=== PATIENT | male | born 1955 | race Caucasian/White ===

== ENCOUNTER → 2017-10-03 08:50 | Outpatient (CLI) | payer OTHER, SELFPAY ==
--- NOTE | 2017-10-03 | DI.MRI.S_ITS ---
PROCEDURE: MR ABDOMEN WO/W CON INDICATIONS: HISTORY OF PANCREATITIS TECHNIQUE: Coronal HASTE, axial 2D FLASH in- and [id number]-[id number]; axial breath-hold T2 FSE with fat saturation from the hepatic dome to the iliac crests. Oblique coronal thin-slice and radial thick slab HASTE through the biliary system. Dynamic axial VIBE during administration of contrast. Post-contrast coronal VIBE or 2D FLASH with fat saturation from the hepatic dome to the iliac crests. Optional diffusion weighted imaging and ADC may be performed. COMPARISON: [facility], CT, ABDOMEN/PELVIS WITH CONTRAST, 06/02/2017, 10:45. [facility], US, ABDOMEN COMPLETE, 06/02/2017, 11:03. FINDINGS: Image quality: Excellent. Pancreas and biliary system: The bile ducts are not distended. With reference to the prior CT scan 06/02/17 there has been resolution of the pattern of pancreatitis and retroperitoneal edema previously present. The pancreatic tail, body, neck and head appear normal and no pancreatic ductal distention is present. There is, however, a hypoenhancing mass within the pancreatic uncinate process which measures up to 1.9 cm in maximal axial dimension and shows subtle but definite elevated diffusion signal in that area versus normal appearance of the pancreatic head immediately above. Solid organs: Liver is normal in size and enhancement except for a 3 cm peripherally nodular enhancing structure at the subcapsular right posterior hepatic segment mid liver level, previously also seen by ultrasound as a homogeneously hyperechoic structure characteristic by CT enhancement of hemangioma. Gallbladder appears normal, and the common duct shows no evidence of ductal calculus or sludge. Spleen is normal in size and enhancement. No adrenal nodules. Kidneys are normal in size and enhancement, without hydronephrosis. Nodes and vessels: No retroperitoneal or mesenteric adenopathy by size criteria. Aorta and inferior vena cava are normal in size. Bowel and peritoneum: Unenhanced bowel loops are normal in caliber throughout. No free fluid. Lung bases: No basal pleural effusions. Heart size is normal. Bones and soft tissues: No ventral hernias. Bone marrow is normal in overall signal. IMPRESSION: 1. Resolution of prior acute pancreatitis seen during CT scanning 06/02/17. Stable appearance of a benign appearing hemangioma at the subcapsular right posterior hepatic segment measuring up to 3 cm. 2. There is an abnormal masslike structure measuring up to 1.9 cm at the pancreatic uncinate process showing hypoenhancement, and elevated diffusion signal within, potentially a manifestation of early pancreatic adenocarcinoma. Currently there is no evidence of metastatic disease. 3. Given the implication of the pancreatic abnormality noted I would recommend a targeted single organ pancreatic ultrasound with specific attention exactly to the area of current MR concern. Additionally, a pancreatic protocol CT scan would be helpful in establishing the diagnosis of a potentially curable pancreatic carcinoma. That CT scan should be performed without oral contrast and in the 3 phases of contrast (without contrast, arterial phase, and mixed arterial venous phase of enhancement). Additionally, consideration of endoscopic pancreatic ultrasound may be warranted. Dictated by: Vitaly José M.D. on 10/03/2017 at 17:36 Approved by: Vitaly José M.D. on 10/03/2017 at 17:53
== END ==
PROVIDERS: PCP Family Medicine; Visit Provider Internal Medicine Gastroenterology
DX: K86.9 Disease of pancreas, unspecified (principal)
CPT/HCPCS: 74183

== ENCOUNTER → 2017-12-04 13:38 | Outpatient (REF) | payer OTHER, SELFPAY ==
[2017-12-04 13:51] LABS: Add Manual Diff / Slide Review NO; Basophils Percent Auto 0.4 % (0-2); Hematocrit 34.7 % (41-53); Hemoglobin 11.4 g/dL (13.5-17.5); Lymphocytes Percent Auto 14.1 % (25-40); Mean Corpuscular Hemoglobin 30.7 PG (26-34); Mean Corpuscular Volume 93.2 fL (80-100); Monocytes Percent Auto 6.1 % (3-14); Neutrophils Absolute Auto 11800 /uL (3000-5900); Neutrophils Percent Auto 77.4 % (50-75); Platelet Count 704 X10^3/uL (150-400); Red Blood Cell Count 3.72 X10^6/uL (4.5-5.9); Red Cell Distribution Width 13.9 % (11.6-14.8); White Blood Cell Count 15.2 X10^3/uL (4.5-11.0)
[2017-12-04 14:05] LABS: Alanine Aminotransferase 63 IU/L (21-72); Albumin 2.9 g/dL (3.5-5.0); Alkaline Phosphatase 402 U/L (38-126); Aspartate Aminotransferase 75 IU/L (17-59); BUN Creatinine Ratio 17.8 (6-22); Bilirubin Total 0.3 mg/dL (0.2-1.3); Blood Urea Nitrogen 16 mg/dL (9-20); Calcium 8.8 mg/dL (8.4-10.2); Carbon Dioxide 29 mmol/L (22-32); Chloride 100 mmol/L (98-107); Creatine Kinase 32 U/L (55-170); Estimated Glomerular Filt Rate > 60.0 mL/min (>60); Globulin 2.9 g/dL (1.7-4.1); Glucose 81 mg/dL (80-110); HEMOLYSIS < 15 (0-50); Potassium 4.7 mmol/L (3.4-5.1); Sodium 140 mmol/L (137-145); Total Protein 5.8 g/dL (6.3-8.2)
== END ==
LOC: LAB 13:38
PROVIDERS: PCP Family Medicine; Visit Provider Surgery
DX: C25.0 Malignant neoplasm of head of pancreas (principal); K65.1 Peritoneal abscess
CPT/HCPCS: 80053; 82550; 85025

== ENCOUNTER → 2017-12-11 18:35 | Outpatient (REF) | payer OTHER, SELFPAY ==
[2017-12-11 18:44] LABS: Add Manual Diff / Slide Review NO; Basophils Percent Auto 0.6 % (0-2); Hemoglobin 11.9 g/dL (13.5-17.5); Lymphocytes Percent Auto 19.7 % (25-40); Mean Corpuscular HGB Conc 33.1 % (30-36); Mean Corpuscular Hemoglobin 30.4 PG (26-34); Mean Corpuscular Volume 91.7 fL (80-100); Neutrophils Absolute Auto 6700 /uL (3000-5900); Neutrophils Percent Auto 67.7 % (50-75); Platelet Count 461 X10^3/uL (150-400); Red Blood Cell Count 3.93 X10^6/uL (4.5-5.9); White Blood Cell Count 9.9 X10^3/uL (4.5-11.0)
[2017-12-11 19:17] LABS: Blood Urea Nitrogen 23 mg/dL (9-20); Calcium 9.3 mg/dL (8.4-10.2); Carbon Dioxide 33 mmol/L (22-32); Chloride 100 mmol/L (98-107); Creatine Kinase 32 U/L (55-170); Estimated Glomerular Filt Rate > 60.0 mL/min (>60); Glucose 79 mg/dL (80-110); HEMOLYSIS < 15 (0-50); Potassium 4.4 mmol/L (3.4-5.1); Sodium 141 mmol/L (137-145)
== END ==
LOC: LAB 18:35
PROVIDERS: PCP Family Medicine; Visit Provider Surgery
DX: K65.1 Peritoneal abscess (principal); C25.0 Malignant neoplasm of head of pancreas
CPT/HCPCS: 36415; 80048; 82550; 85025

== ENCOUNTER → 2017-12-24 07:40 | Outpatient (CLI) | payer OTHER, SELFPAY ==
[2017-12-24 08:32] LABS: Add Manual Diff / Slide Review NO; Basophils Percent Auto 0.4 % (0-2); Eosinophils Percent Auto 4.4 % (2-4); Hematocrit 37.6 % (41-53); Hemoglobin 12.5 g/dL (13.5-17.5); Lymphocytes Percent Auto 15.9 % (25-40); Mean Corpuscular HGB Conc 33.2 % (30-36); Mean Corpuscular Hemoglobin 30.2 PG (26-34); Mean Corpuscular Volume 90.9 fL (80-100); Monocytes Percent Auto 6.3 % (3-14); Neutrophils Absolute Auto 7100 /uL (3000-5900); Platelet Count 341 X10^3/uL (150-400); Red Blood Cell Count 4.14 X10^6/uL (4.5-5.9); Red Cell Distribution Width 14.2 % (11.6-14.8); White Blood Cell Count 9.7 X10^3/uL (4.5-11.0)
== END ==
PROVIDERS: PCP Family Medicine; Visit Provider Internal Medicine Nephrology
DX: C25.3 Malignant neoplasm of pancreatic duct (principal)
CPT/HCPCS: 36415; 85025

== ENCOUNTER 2018-02-01 14:40 | Emergency (ER) | payer OTHER, SELFPAY ==
[2018-02-01] VITALS (7 sets, daily range): BP systolic 102–131; BP diastolic 73–81; PULSE 71–86; RESP 16–21; TEMP 37.3; O2SAT 98–99
--- NOTE | 2018-02-01 15:06 | ED.ABDPAIN ---
HPI - Abdominal Pain General Chief Complaint: GI Bleed Stated Complaint: CHEMO PATIENT,BLACK STOOL Time Seen by Provider: 02/01/18 14:50 Source: patient Mode of arrival: ambulatory Limitations: no limitations History of Present Illness HPI narrative: 62-year-old male with recent history of pancreatic cancer and subsequent Whipple procedure at [facility] in [place] presents with dark and tarry stools since yesterday with generalized abdominal discomfort and poor appetite. He is a bit weak but denies any dizziness or lightheadedness. He denies any vomiting. He denies any history of gastrointestinal bleeding. He has had endoscopy in the past but denies any significant findings. He does not take any blood thinners. He is receiving chemotherapy through a port (folfirinox 01/09 and 01/23) which is directed by oncology at [facility]. MD complaint: abdominal pain Onset (ago): day(s) Pain Consistency: constant Location: diffuse Severity: moderate Quality: cramping Migration to: no migration Relieving factors: nothing Associated symptoms: nausea and melena Related Data Home Medications Medication Instructions Recorded Confirmed quetiapine [Seroquel XR] 150 mg PO DAILY #0 04/27/16 02/01/18 psyllium husk (aspartame) 1 ea PO DIRECTED #0 06/22/16 02/01/18 [Metamucil Fiber Singles] lamotrigine 300 mg PO QDAY #0 10/02/16 02/01/18 bupropion HCl 300 mg PO QDAY #0 11/07/16 02/01/18 adapalene [Differin] 1 sunny TOPICAL HS #0 06/02/17 02/01/18 docusate sodium 2 cap PO QDAY #60 cap 06/29/17 02/01/18 polyethylene glycol 3350 [Miralax] 1 pac PO DAILY #10 packet 06/29/17 02/01/18 clonazepam 1 mg tablet 3 mg PO BEDTIME tab 01/01/18 02/01/18 fluoxetine 40 mg capsule 40 mg PO DAILY 01/01/18 02/01/18 hydromorphone 2 mg tablet 2 mg PO Q3H PRN tab 01/01/18 02/01/18 sulfacetamide sodium 10 % topical 1 applictn TOP BID 01/01/18 02/01/18 cleanser, gel aluminum chloride in alcohol 1 applic TOPICAL DIRECTED 02/01/18 02/01/18 [Xerac AC] ascorbic acid (vitamin C) [Vitamin 500 mg PO DAILY 02/01/18 02/01/18 C] aspirin 1 tab PO DAILY 02/01/18 02/01/18 azelaic acid [Finacea] 1 applic TOPICAL BID 02/01/18 02/01/18 benzoyl peroxide [Panoxyl] 1 applic TOPICAL QAM 02/01/18 02/01/18 cholecalciferol (vitamin D3) 6,000 unit PO DAILY 02/01/18 02/01/18 [Vitamin D3] coenzyme Q10 [CoQ-10] 300 mg PO DAILY 02/01/18 02/01/18 lidocaine-prilocaine 1 applic TOPICAL DIRECTED 02/01/18 02/01/18 [id number] [Zenpep] 3 cap PO AC 02/01/18 02/01/18 lorazepam 0.5 mg PO Q8H PRN 02/01/18 02/01/18 melatonin 10 mg PO BEDTIME 02/01/18 02/01/18 minoxidil 1 ml TOPICAL DIRECTED 02/01/18 02/01/18 iuisteuj-lxi-FK-lycopen-lutein 1 tab PO DAILY 02/01/18 02/01/18 [Men 50 Plus Multivitamin] ondansetron 8 mg PO QD-BID PRN 02/01/18 02/01/18 oxycodone-acetaminophen 1 - 3 tab PO DAILY PRN 02/01/18 02/01/18 prochlorperazine maleate 10 mg PO PRN PRN 02/01/18 02/01/18 sulfur 1 applic TOPICAL QPM 02/01/18 02/01/18 tamsulosin [Flomax] 0.8 mg PO BEDTIME 02/01/18 02/01/18 vit C-vit J-llnmau-wdy-om-3 1 cap PO DAILY 02/01/18 02/01/18 [Ocuvite] Previous Rx's Medication Instructions Recorded carbidopa-levodopa 1 tab PO QID #360 tab 08/23/17 montelukast 10 mg PO QDAY #30 tab 08/24/17 dapsone 5 % topical gel 1 applictn TOP BID #60 gram 09/18/17 finasteride 5 mg PO QDAY #90 tab 10/11/17 gabapentin 300 mg capsule 600 mg PO BID #120 cap 01/03/18 Allergies Allergy/AdvReac Type Severity Reaction Status Date / Time fentanyl [FENTANYL] AdvReac Severe tardive Verified 01/01/18 10:35 dykinesia like reaction with breathing cessation midazolam [From VERSED] AdvReac Severe may be Verified 01/01/18 10:35 cause of tardive dyskinesia like sx with breathing sx promethazine [From PHENERGAN] AdvReac Severe tardive Verified 01/01/18 10:35 dyskinesia like effeect Review of Systems Review of Systems All systems reviewed & are unremarkable except as noted in HPI and below Constitutional Denies chills, Denies fever(s), Denies lethargy and Reports weakness Eyes Denies change in vision, Denies eye discharge, Denies irritation and Denies loss of vision ENT Ears, Nose, Mouth, and Throat: Denies change in voice, Denies neck pain and Denies sore throat Cardiovascular Denies chest pain, Denies irregular heart rhythm, Denies lightheadedness, Denies palpitations, Denies dyspnea, Denies dyspnea on exertion and Denies orthopnea Respiratory Denies cough, Denies dyspnea, Denies dyspnea on exertion and Denies wheezing Gastrointestinal Gastrointestinal: Reports abdominal pain, Reports melena, Denies change in bowel habits, Denies diarrhea, Reports nausea and Denies vomiting Genitourinary Denies hematuria, Denies flank pain, Denies urinary incontinence and Denies urinary urgency Musculoskeletal Denies neck pain Integumentary/Breasts Denies pruritus, Denies erythema, Denies rash and Denies wounds Neurologic Denies confusion, Denies loss of vision and Reports weakness Psychiatric Denies anxiety, Denies confusion, Denies depression, Denies homicidal ideation and Denies suicidal ideation Endocrine Denies palpitations Hematologic/Lymphatic Denies easy bruising Allergic/Immunologic Denies wheezing [facility] Medical History BPH (benign prostatic hyperplasia) (Chronic) Depression (Chronic) Tremor (Chronic) Tourette's syndrome (Chronic) Fatigue (Chronic) Pancreatic cancer (Suspected) Epigastric pain (Chronic) Uncomplicated opioid dependence (Chronic) Idiopathic pancreatitis (Chronic) History of Lyme disease (Chronic 07/08/15) Back pain (Chronic) Social History marital status: unmarried,single household members: none lives independently: Yes Smoking Status: Never smoker Exam Narrative Exam Narrative: 62-year-old male uncomfortable, in mild distress Initial Vital Signs Initial Vital Signs: Vital Signs Temperature 99.2 F 02/01/18 14:49 Pulse Rate 86 02/01/18 14:49 Respiratory Rate 20 02/01/18 14:49 Blood Pressure 131/77 02/01/18 14:49 Pulse Oximetry 98 02/01/18 14:49 Const General: cooperative and well developed Nutritional Appearance: well nourished Orientation: alert, awake, oriented x3 and not confused HENMT Head: normocephalic and atraumatic Ears: external ears normal and TM's normal bilaterally Nose: external nose normal and No nasal discharge Face and sinus: sinuses nontender, face symmetric, no sinus tenderness and No dry mucous membranes Mouth: oral mucosae normal and moist mucous membranes Teeth and gingiva: dentition normal Throat: tonsils normal and uvula midline Neck Neck: normal visual inspection, trachea midline, No lymphadenopathy, No midline deformity and No JVD Lymphatic: No lymphedema Resp Effort & Inspection: normal respiratory effort, able to speak in complete sentences, no respiratory distress and no use of accessory muscles Auscultation: clear to auscultation bilaterally, no rales, no rhonchi and no wheezes GI Inspection: non-distended Palpation: soft, no hepatosplenomegaly, No guarding, No pulsatile mass and No tender Auscultation: normal bowel sounds Rectal Exam: heme positive stool Back/Spine/Pelvis Back: No CVA tenderness Cervical Spine: cervical ROM normal and No pain with cervical ROM Thoracic/Lumbar Spine: thoracic and lumbar spine normal to inspection Skin General: no rashes or lesions noted, No jaundice and No petechiae Neuro General: alert, oriented x3, gait normal and no focal motor deficits Speech: speech normal Extrem General: full ROM, no clubbing, cyanosis or edema, no pedal edema and no calf tenderness Course Orders Ordered: ED Orders 02/01/18 15:30 Complete Blood Count AUTO DIFF Stat Comprehensive Metabolic Panel Stat Partial Thromboplastin Time Stat Prothrombin Time INR Stat Type and Screen Stat 02/01/18 16:10 Urine Microscopic Stat Discontinued Medications Ondansetron HCl (Zofran) 4 mg IV NOW ONE Stop: 02/01/18 15:37 Last Admin: 02/01/18 16:13 Dose: 4 mg Pantoprazole Sodium (Protonix) 40 mg IV NOW ONE Stop: 02/01/18 15:37 Last Admin: 02/01/18 16:13 Dose: 40 mg Reevaluation(s) Reevaluation #1: patient resting comfortably, vitals remain stable. Consultations Consultation #1: call to [facility] to initiate transfer. Dr. Stephenson will accept. EMS to arrive at about 2100 Time: 18:48 Vital Signs - 8 hr 02/01/18 14:49 Temperature 99.2 F Pulse Rate 86 Respiratory Rate 20 Blood Pressure 131/77 Pulse Oximetry 98 MDM - Abdominal Pain Differential Diagnosis Differential diagnosis: Likely abdominal pain and other Medical Records Attestation: I reviewed the patient's medical records. Lab Data Attestation: I reviewed the patient's lab results. Result diagrams: 02/01/18 15:30 02/01/18 15:30 Lab Results 02/01/18 02/01/18 02/01/18 Range/Units 15:30 15:30 15:30 WBC 9.6 (4.5-11.0) X10^3/uL RBC 4.13 L (4.5-5.9) X10^6/uL Hgb 12.5 L (13.5-17.5) g/dL Hct 36.5 L (41-53) % MCV 88.4 (80-100) fL MCH 30.1 (26-34) PG MCHC 34.1 (30-36) % RDW 14.1 (11.6-14.8) % Plt Count 184 (150-400) X10^3/uL Neut % (Auto) 73.0 (50-75) % Lymph % (Auto) 15.3 L (25-40) % [place] % (Auto) 7.1 (3-14) % Eos % (Auto) 4.3 H (2-4) % Baso % (Auto) 0.3 (0-2) % Neut # (Auto) 7000 H (7280-3786) /uL PT 12.6 (10.1-12.7) SECONDS INR 1.2 (0.9-1.3) APTT 28 (26.4-36.2) SECONDS Sodium 145 (137-145) mmol/L Potassium 3.8 (3.4-5.1) mmol/L Chloride 105 (98-107) mmol/L Carbon Dioxide 31 (22-32) mmol/L BUN 20 (9-20) mg/dL Creatinine 0.90 (0.66-1.25) mg/dL Estimated GFR > 60.0 (>60) mL/min BUN/Creatinine Ratio 22.2 H (6-22) Glucose 95 (80-110) mg/dL Calcium 9.2 (8.4-10.2) mg/dL Total Bilirubin 0.2 (0.2-1.3) mg/dL AST 22 (17-59) IU/L ALT 30 (21-72) IU/L Alkaline Phosphatase 101 (38-126) U/L Total Protein 6.3 (6.3-8.2) g/dL Albumin 3.9 (3.5-5.0) g/dL Globulin 2.4 (1.7-4.1) g/dL Albumin/Globulin Ratio 1.6 (1.0-2.8) Urine RBC (0-5/HPF) Urine WBC (0-5/HPF) Ur Squamous Epith Cells Urine Bacteria (None) Urine Mucus (Negative) Ur Culture Indicated? Micro UA Comment Blood Type Antibody Screen 02/01/18 02/01/18 Range/Units 15:30 16:10 WBC (4.5-11.0) X10^3/uL RBC (4.5-5.9) X10^6/uL Hgb (13.5-17.5) g/dL Hct (41-53) % MCV (80-100) fL MCH (26-34) PG MCHC (30-36) % RDW (11.6-14.8) % Plt Count (150-400) X10^3/uL Neut % (Auto) (50-75) % Lymph % (Auto) (25-40) % [place] % (Auto) (3-14) % Eos % (Auto) (2-4) % Baso % (Auto) (0-2) % Neut # (Auto) (5678-2159) /uL PT (10.1-12.7) SECONDS INR (0.9-1.3) APTT (26.4-36.2) SECONDS Sodium (137-145) mmol/L Potassium (3.4-5.1) mmol/L Chloride (98-107) mmol/L Carbon Dioxide (22-32) mmol/L BUN (9-20) mg/dL Creatinine (0.66-1.25) mg/dL Estimated GFR (>60) mL/min BUN/Creatinine Ratio (6-22) Glucose (80-110) mg/dL Calcium (8.4-10.2) mg/dL Total Bilirubin (0.2-1.3) mg/dL AST (17-59) IU/L ALT (21-72) IU/L Alkaline Phosphatase (38-126) U/L Total Protein (6.3-8.2) g/dL Albumin (3.5-5.0) g/dL Globulin (1.7-4.1) g/dL Albumin/Globulin Ratio (1.0-2.8) Urine RBC None seen (0-5/HPF) Urine WBC 1-5/hpf (0-5/HPF) Ur Squamous Epith Cells 0-1 /hpf Urine Bacteria None seen (None) Urine Mucus 2+ H (Negative) Ur Culture Indicated? Cult not indicated Micro UA Comment Not Reportable Blood Type A Positive Antibody Screen Negative Point of care testing: Point of Care Testing Stool Occult Blood Positive Urine Dip Bedside Urine Glucose Negative Bedside Urine Bilirubin - Negative Bedside Urine Ketone +/- 5 Urine Specific [place] 1.030 Bedside Urine Occult Blood - Negative Bedside Urine pH 6.0 Bedside Urine Protein +/- 15 Bedside Urine Urobilinogen - Negative Bedside Urine Nitrite - Negative Bedside Urine Leukocytes - Negative Esterase MDM Narrative Medical decision making narrative: Patient with very complex recent medical history presents with signs consistent with upper GI bleed. He recently had a Whipple procedure at an outside facility and is currently on chemotherapy presenting with upper GI bleed. Patient will be transferred to [facility] for higher level of care and continuity of care Discharge Plan Departure Patient Disposition: General Acute Hospital Clinical Impression: Acute upper gastrointestinal bleeding Prescriptions: No Action clonazepam 1 mg tablet 3 mg PO BEDTIME RF: 0 fluoxetine 40 mg capsule 40 mg PO DAILY RF: 0 sulfacetamide sodium 10 % cleanser, gel 1 applictn TOP BID RF: 0 hydromorphone [Dilaudid] 2 mg tablet 2 mg PO Q3H PRN (Reason: Pain, Moderate) RF: 0 dapsone 5 % gel 1 applictn TOP BID Qty: 60 RF: 0 quetiapine [Seroquel XR] 150 MG tablet extended release 24 hr 150 mg PO DAILY Qty: 0 RF: 0 psyllium husk (aspartame) [Metamucil Fiber Singles] 3.4 gram Powder In Packet 1 ea PO DIRECTED Qty: 0 RF: 0 lamotrigine 300 MG tablet extended release 24hr 300 mg PO QDAY Qty: 0 RF: 0 bupropion HCl 300 MG tablet extended release 24 hr 300 mg PO QDAY Qty: 0 RF: 0 adapalene [Differin] 0.3 % gel 1 sunny Topical HS Qty: 0 RF: 0 docusate sodium 250 MG capsule 2 cap PO QDAY Qty: 60 RF: 2 polyethylene glycol 3350 [Miralax] 17 GM powder in packet 1 pac PO DAILY Qty: 10 RF: 2 carbidopa-levodopa 50 MG/200 MG tablet extended release 1 tab PO QID Qty: 360 RF: 3 montelukast 10 MG tablet 10 mg PO QDAY Qty: 30 RF: 5 finasteride 5 mg tablet 5 mg PO QDAY Qty: 90 RF: 3 gabapentin [Neurontin] 300 mg capsule 600 mg PO BID Qty: 120 RF: 5 benzoyl peroxide [Panoxyl] 10 % Cleanser 1 applic Topical QAM RF: 0 prochlorperazine maleate 10 mg Tablet 10 mg PO PRN PRN (Reason: Nausea) RF: 0 aspirin 81 mg Tablet,Delayed Release (Dr/Ec) 1 tab PO DAILY RF: 0 minoxidil 5 % Solution 1 ml TOPICAL DIRECTED RF: 0 ondansetron 8 mg Tablet,Disintegrating 8 mg PO QD-BID PRN (Reason: Nausea) RF: 0 lidocaine-prilocaine 2.5-2.5 % Cream 1 applic Topical DIRECTED RF: 0 lorazepam 0.5 mg Tablet 0.5 mg PO Q8H PRN (Reason: as directed) RF: 0 ascorbic acid (vitamin C) [Vitamin C] 500 mg Tablet 500 mg PO DAILY RF: 0 aluminum chloride in alcohol [Xerac AC] 6.25 % Solution 1 applic Topical DIRECTED RF: 0 coenzyme Q10 [CoQ-10] 100 mg Capsule 300 mg PO DAILY RF: 0 vit C-vit X-qperyf-aby-om-3 [Ocuvite] 731-81-0-150 fu-ajzc-xy-mg Capsule 1 cap PO DAILY RF: 0 cholecalciferol (vitamin D3) [Vitamin D3] 2,000 unit Capsule 6,000 unit PO DAILY RF: 0 oulwevlu-vqs-QD-lycopen-lutein [Men 50 Plus Multivitamin] 300-600-300 mcg Tablet 1 tab PO DAILY RF: 0 melatonin 10 mg Tablet 10 mg PO BEDTIME RF: 0 azelaic acid [Finacea] 15 % Foam 1 applic Topical BID RF: 0 naaxac-ckkrpgzg-dbbrkxo [Zenpep] 10,000-32,000 -42,000 unit Capsule,Delayed Release(Dr/Ec) 3 cap PO AC RF: 0 sulfur 10 % bar 1 applic Topical QPM RF: 0 oxycodone-acetaminophen 5-325 mg tablet 1 - 3 tab PO DAILY PRN (Reason: Pain, Moderate) RF: 0 tamsulosin [Flomax] 0.4 MG capsule 0.8 mg PO BEDTIME RF: 0
--- NOTE | 2018-02-01 15:28 | ED_ITS ---
HPI - Abdominal Pain General Chief Complaint: GI Bleed Stated Complaint: CHEMO PATIENT,BLACK STOOL Time Seen by Provider: 02/01/18 14:50 Source: patient Mode of arrival: ambulatory Limitations: no limitations History of Present Illness HPI narrative: 62-year-old male with recent history of pancreatic cancer and subsequent Whipple procedure at [facility] in [place] presents with dark and tarry stools since yesterday with generalized abdominal discomfort and poor appetite. He is a bit weak but denies any dizziness or lightheadedness. He denies any vomiting. He denies any history of gastrointestinal bleeding. He has had endoscopy in the past but denies any significant findings. He does not take any blood thinners. He is receiving chemotherapy through a port ( folfirinox 01/09 and 01/23) which is directed by oncology at [facility]. MD complaint: abdominal pain Onset (ago): day(s) Pain Consistency: constant Location: diffuse Severity: moderate Quality: cramping Migration to: no migration Relieving factors: nothing Associated symptoms: nausea and melena Related Data Home Medications Medication Instructions Recorded Confirmed quetiapine [Seroquel XR] 150 mg PO DAILY #0 04/27/16 02/01/18 psyllium husk (aspartame) 1 ea PO DIRECTED #0 06/22/16 02/01/18 [Metamucil Fiber Singles] lamotrigine 300 mg PO QDAY #0 10/02/16 02/01/18 bupropion HCl 300 mg PO QDAY #0 11/07/16 02/01/18 adapalene [Differin] 1 sunny TOPICAL HS #0 06/02/17 02/01/18 docusate sodium 2 cap PO QDAY #60 cap 06/29/17 02/01/18 polyethylene glycol 3350 [Miralax] 1 pac PO DAILY #10 packet 06/29/17 02/01/18 clonazepam 1 mg tablet 3 mg PO BEDTIME tab 01/01/18 02/01/18 fluoxetine 40 mg capsule 40 mg PO DAILY 01/01/18 02/01/18 hydromorphone 2 mg tablet 2 mg PO Q3H PRN tab 01/01/18 02/01/18 sulfacetamide sodium 10 % topical 1 applictn TOP BID 01/01/18 02/01/18 cleanser, gel aluminum chloride in alcohol 1 applic TOPICAL DIRECTED 02/01/18 02/01/18 [Xerac AC] ascorbic acid (vitamin C) [Vitamin 500 mg PO DAILY 02/01/18 02/01/18 C] aspirin 1 tab PO DAILY 02/01/18 02/01/18 azelaic acid [Finacea] 1 applic TOPICAL BID 02/01/18 02/01/18 benzoyl peroxide [Panoxyl] 1 applic TOPICAL QAM 02/01/18 02/01/18 cholecalciferol (vitamin D3) 6,000 unit PO DAILY 02/01/18 02/01/18 [Vitamin D3] coenzyme Q10 [CoQ-10] 300 mg PO DAILY 02/01/18 02/01/18 lidocaine-prilocaine 1 applic TOPICAL DIRECTED 02/01/18 02/01/18 aofoqk-xtwqwrno-gblnxpd [Zenpep] 3 cap PO AC 02/01/18 02/01/18 lorazepam 0.5 mg PO Q8H PRN 02/01/18 02/01/18 melatonin 10 mg PO BEDTIME 02/01/18 02/01/18 minoxidil 1 ml TOPICAL DIRECTED 02/01/18 02/01/18 oaeecobo-ymb-JY-lycopen-lutein 1 tab PO DAILY 02/01/18 02/01/18 [Men 50 Plus Multivitamin] ondansetron 8 mg PO QD-BID PRN 02/01/18 02/01/18 oxycodone-acetaminophen 1 - 3 tab PO DAILY PRN 02/01/18 02/01/18 prochlorperazine maleate 10 mg PO PRN PRN 02/01/18 02/01/18 sulfur 1 applic TOPICAL QPM 02/01/18 02/01/18 tamsulosin [Flomax] 0.8 mg PO BEDTIME 02/01/18 02/01/18 vit C-vit Y-vibwzk-her-om-3 1 cap PO DAILY 02/01/18 02/01/18 [Ocuvite] Previous Rx's Medication Instructions Recorded carbidopa-levodopa 1 tab PO QID #360 tab 08/23/17 montelukast 10 mg PO QDAY #30 tab 08/24/17 dapsone 5 % topical gel 1 applictn TOP BID #60 gram 09/18/17 finasteride 5 mg PO QDAY #90 tab 10/11/17 gabapentin 300 mg capsule 600 mg PO BID #120 cap 01/03/18 Allergies Allergy/AdvReac Type Severity Reaction Status Date / Time fentanyl [FENTANYL] AdvReac Severe tardive Verified 01/01/18 10:35 dykinesia like reaction with breathing cessation midazolam [From VERSED] AdvReac Severe may be Verified 01/01/18 10:35 cause of tardive dyskinesia like sx with breathing sx promethazine [From PHENERGAN] AdvReac Severe tardive Verified 01/01/18 10:35 dyskinesia like effeect Review of Systems Review of Systems All systems reviewed & are unremarkable except as noted in HPI and below Constitutional Denies chills, Denies fever(s), Denies lethargy and Reports weakness Eyes Denies change in vision, Denies eye discharge, Denies irritation and Denies loss of vision ENT Ears, Nose, Mouth, and Throat: Denies change in voice, Denies neck pain and Denies sore throat Cardiovascular Denies chest pain, Denies irregular heart rhythm, Denies lightheadedness, Denies palpitations, Denies dyspnea, Denies dyspnea on exertion and Denies orthopnea Respiratory Denies cough, Denies dyspnea, Denies dyspnea on exertion and Denies wheezing Gastrointestinal Gastrointestinal: Reports abdominal pain, Reports melena, Denies change in bowel habits, Denies diarrhea, Reports nausea and Denies vomiting Genitourinary Denies hematuria, Denies flank pain, Denies urinary incontinence and Denies urinary urgency Musculoskeletal Denies neck pain Integumentary/Breasts Denies pruritus, Denies erythema, Denies rash and Denies wounds Neurologic Denies confusion, Denies loss of vision and Reports weakness Psychiatric Denies anxiety, Denies confusion, Denies depression, Denies homicidal ideation and Denies suicidal ideation Endocrine Denies palpitations Hematologic/Lymphatic Denies easy bruising Allergic/Immunologic Denies wheezing [facility] Medical History BPH (benign prostatic hyperplasia) (Chronic) Depression (Chronic) Tremor (Chronic) Tourette's syndrome (Chronic) Fatigue (Chronic) Pancreatic cancer (Suspected) Epigastric pain (Chronic) Uncomplicated opioid dependence (Chronic) Idiopathic pancreatitis (Chronic) History of Lyme disease (Chronic 07/08/15) Back pain (Chronic) Social History marital status: unmarried,single household members: none lives independently: Yes Smoking Status: Never smoker Exam Narrative Exam Narrative: 62-year-old male uncomfortable, in mild distress Initial Vital Signs Initial Vital Signs: Vital Signs Temperature 99.2 F 02/01/18 14:49 Pulse Rate 86 02/01/18 14:49 Respiratory Rate 20 02/01/18 14:49 Blood Pressure 131/77 02/01/18 14:49 Pulse Oximetry 98 02/01/18 14:49 Const General: cooperative and well developed Nutritional Appearance: well nourished Orientation: alert, awake, oriented x3 and not confused HENMT Head: normocephalic and atraumatic Ears: external ears normal and TM's normal bilaterally Nose: external nose normal and No nasal discharge Face and sinus: sinuses nontender, face symmetric, no sinus tenderness and No dry mucous membranes Mouth: oral mucosae normal and moist mucous membranes Teeth and gingiva: dentition normal Throat: tonsils normal and uvula midline Neck Neck: normal visual inspection, trachea midline, No lymphadenopathy, No midline deformity and No JVD Lymphatic: No lymphedema Resp Effort & Inspection: normal respiratory effort, able to speak in complete sentences, no respiratory distress and no use of accessory muscles Auscultation: clear to auscultation bilaterally, no rales, no rhonchi and no wheezes GI Inspection: non-distended Palpation: soft, no hepatosplenomegaly, No guarding, No pulsatile mass and No tender Auscultation: normal bowel sounds Rectal Exam: heme positive stool Back/Spine/Pelvis Back: No CVA tenderness Cervical Spine: cervical ROM normal and No pain with cervical ROM Thoracic/Lumbar Spine: thoracic and lumbar spine normal to inspection Skin General: no rashes or lesions noted, No jaundice and No petechiae Neuro General: alert, oriented x3, gait normal and no focal motor deficits Speech: speech normal Extrem General: full ROM, no clubbing, cyanosis or edema, no pedal edema and no calf tenderness Course Orders Ordered: ED Orders 02/01/18 15:30 Complete Blood Count AUTO DIFF Stat Comprehensive Metabolic Panel Stat Partial Thromboplastin Time Stat Prothrombin Time INR Stat Type and Screen Stat 02/01/18 16:10 Urine Microscopic Stat Discontinued Medications Ondansetron HCl (Zofran) 4 mg IV NOW ONE Stop: 02/01/18 15:37 Last Admin: 02/01/18 16:13 Dose: 4 mg Pantoprazole Sodium (Protonix) 40 mg IV NOW ONE Stop: 02/01/18 15:37 Last Admin: 02/01/18 16:13 Dose: 40 mg Reevaluation(s) Reevaluation #1: patient resting comfortably, vitals remain stable. Consultations Consultation #1: call to [facility] to initiate transfer. Dr. Stephenson will accept. EMS to arrive at about 2100 Time: 18:48 Vital Signs - 8 hr 02/01/18 14:49 Temperature 99.2 F Pulse Rate 86 Respiratory Rate 20 Blood Pressure 131/77 Pulse Oximetry 98 MDM - Abdominal Pain Differential Diagnosis Differential diagnosis: Likely abdominal pain and other Medical Records Attestation: I reviewed the patient's medical records. Lab Data Attestation: I reviewed the patient's lab results. Result diagrams: 02/01/18 15:30 02/01/18 15:30 Lab Results 02/01/18 02/01/18 02/01/18 Range/Units 15:30 15:30 15:30 WBC 9.6 (4.5-11.0) X10^3/uL RBC 4.13 L (4.5-5.9) X10^6/uL Hgb 12.5 L (13.5-17.5) g/dL Hct 36.5 L (41-53) % MCV 88.4 (80-100) fL MCH 30.1 (26-34) PG MCHC 34.1 (30-36) % RDW 14.1 (11.6-14.8) % Plt Count 184 (150-400) X10^3/uL Neut % (Auto) 73.0 (50-75) % Lymph % (Auto) 15.3 L (25-40) % [place] % (Auto) 7.1 (3-14) % Eos % (Auto) 4.3 H (2-4) % Baso % (Auto) 0.3 (0-2) % Neut # (Auto) 7000 H (4036-7475) /uL PT 12.6 (10.1-12.7) SECONDS INR 1.2 (0.9-1.3) APTT 28 (26.4-36.2) SECONDS Sodium 145 (137-145) mmol/L Potassium 3.8 (3.4-5.1) mmol/L Chloride 105 (98-107) mmol/L Carbon Dioxide 31 (22-32) mmol/L BUN 20 (9-20) mg/dL Creatinine 0.90 (0.66-1.25) mg/dL Estimated GFR > 60.0 (>60) mL/min BUN/Creatinine Ratio 22.2 H (6-22) Glucose 95 (80-110) mg/dL Calcium 9.2 (8.4-10.2) mg/dL Total Bilirubin 0.2 (0.2-1.3) mg/dL AST 22 (17-59) IU/L ALT 30 (21-72) IU/L Alkaline Phosphatase 101 (38-126) U/L Total Protein 6.3 (6.3-8.2) g/dL Albumin 3.9 (3.5-5.0) g/dL Globulin 2.4 (1.7-4.1) g/dL Albumin/Globulin Ratio 1.6 (1.0-2.8) Urine RBC (0-5/HPF) Urine WBC (0-5/HPF) Ur Squamous Epith Cells Urine Bacteria (None) Urine Mucus (Negative) Ur Culture Indicated? Micro UA Comment Blood Type Antibody Screen 02/01/18 02/01/18 Range/Units 15:30 16:10 WBC (4.5-11.0) X10^3/uL RBC (4.5-5.9) X10^6/uL Hgb (13.5-17.5) g/dL Hct (41-53) % MCV (80-100) fL MCH (26-34) PG MCHC (30-36) % RDW (11.6-14.8) % Plt Count (150-400) X10^3/uL Neut % (Auto) (50-75) % Lymph % (Auto) (25-40) % [place] % (Auto) (3-14) % Eos % (Auto) (2-4) % Baso % (Auto) (0-2) % Neut # (Auto) (3191-2453) /uL PT (10.1-12.7) SECONDS INR (0.9-1.3) APTT (26.4-36.2) SECONDS Sodium (137-145) mmol/L Potassium (3.4-5.1) mmol/L Chloride (98-107) mmol/L Carbon Dioxide (22-32) mmol/L BUN (9-20) mg/dL Creatinine (0.66-1.25) mg/dL Estimated GFR (>60) mL/min BUN/Creatinine Ratio (6-22) Glucose (80-110) mg/dL Calcium (8.4-10.2) mg/dL Total Bilirubin (0.2-1.3) mg/dL AST (17-59) IU/L ALT (21-72) IU/L Alkaline Phosphatase (38-126) U/L Total Protein (6.3-8.2) g/dL Albumin (3.5-5.0) g/dL Globulin (1.7-4.1) g/dL Albumin/Globulin Ratio (1.0-2.8) Urine RBC None seen (0-5/HPF) Urine WBC 1-5/hpf (0-5/HPF) Ur Squamous Epith Cells 0-1 /hpf Urine Bacteria None seen (None) Urine Mucus 2+ H (Negative) Ur Culture Indicated? Cult not indicated Micro UA Comment Not Reportable Blood Type A Positive Antibody Screen Negative Point of care testing: Point of Care Testing Stool Occult Blood Positive Urine Dip Bedside Urine Glucose Negative Bedside Urine Bilirubin - Negative Bedside Urine Ketone +/- 5 Urine Specific [place] 1.030 Bedside Urine Occult Blood - Negative Bedside Urine pH 6.0 Bedside Urine Protein +/- 15 Bedside Urine Urobilinogen - Negative Bedside Urine Nitrite - Negative Bedside Urine Leukocytes - Negative Esterase MDM Narrative Medical decision making narrative: Patient with very complex recent medical history presents with signs consistent with upper GI bleed. He recently had a Whipple procedure at an outside facility and is currently on chemotherapy presenting with upper GI bleed. Patient [facility] be transferred to [facility] for higher level of care and continuity of care Discharge Plan Departure Patient Disposition: [facility] Clinical Impression: Acute upper gastrointestinal bleeding Prescriptions: No Action clonazepam 1 mg tablet 3 mg PO BEDTIME RF: 0 fluoxetine 40 mg capsule 40 mg PO DAILY RF: 0 sulfacetamide sodium 10 % cleanser, gel 1 applictn TOP BID RF: 0 hydromorphone [Dilaudid] 2 mg tablet 2 mg PO Q3H PRN (Reason: Pain, Moderate) RF: 0 dapsone 5 % gel 1 applictn TOP BID Qty: 60 RF: 0 quetiapine [Seroquel XR] 150 MG tablet extended release 24 hr 150 mg PO DAILY Qty: 0 RF: 0 psyllium husk (aspartame) [Metamucil Fiber Singles] 3.4 gram Powder In Packet 1 ea PO DIRECTED Qty: 0 RF: 0 lamotrigine 300 MG tablet extended release 24hr 300 mg PO QDAY Qty: 0 RF: 0 bupropion HCl 300 MG tablet extended release 24 hr 300 mg PO QDAY Qty: 0 RF: 0 adapalene [Differin] 0.3 % gel 1 sunny Topical HS Qty: 0 RF: 0 docusate sodium 250 MG capsule 2 cap PO QDAY Qty: 60 RF: 2 polyethylene glycol 3350 [Miralax] 17 GM powder in packet 1 pac PO DAILY Qty: 10 RF: 2 carbidopa-levodopa 50 MG/200 MG tablet extended release 1 tab PO QID Qty: 360 RF: 3 montelukast 10 MG tablet 10 mg PO QDAY Qty: 30 RF: 5 finasteride 5 mg tablet 5 mg PO QDAY Qty: 90 RF: 3 gabapentin [Neurontin] 300 mg capsule 600 mg PO BID Qty: 120 RF: 5 benzoyl peroxide [Panoxyl] 10 % Cleanser 1 applic Topical QAM RF: 0 prochlorperazine maleate 10 mg Tablet 10 mg PO PRN PRN (Reason: Nausea) RF: 0 aspirin 81 mg Tablet,Delayed Release (Dr/Ec) 1 tab PO DAILY RF: 0 minoxidil 5 % Solution 1 ml TOPICAL DIRECTED RF: 0 ondansetron 8 mg Tablet,Disintegrating 8 mg PO QD-BID PRN (Reason: Nausea) RF: 0 lidocaine-prilocaine 2.5-2.5 % Cream 1 applic Topical DIRECTED RF: 0 lorazepam 0.5 mg Tablet 0.5 mg PO Q8H PRN (Reason: as directed) RF: 0 ascorbic acid (vitamin C) [Vitamin C] 500 mg Tablet 500 mg PO DAILY RF: 0 aluminum chloride in alcohol [Xerac AC] 6.25 % Solution 1 applic Topical DIRECTED RF: 0 coenzyme Q10 [CoQ-10] 100 mg Capsule 300 mg PO DAILY RF: 0 vit C-vit P-tgzduj-nhf-om-3 [Ocuvite] 108-79-9-150 jv-fxwy-iw-mg Capsule 1 cap PO DAILY RF: 0 cholecalciferol (vitamin D3) [Vitamin D3] 2,000 unit Capsule 6,000 unit PO DAILY RF: 0 adhuhkeq-zws-VQ-lycopen-lutein [Men 50 Plus Multivitamin] 300-600-300 mcg Tablet 1 tab PO DAILY RF: 0 melatonin 10 mg Tablet 10 mg PO BEDTIME RF: 0 azelaic acid [Finacea] 15 % Foam 1 applic Topical BID RF: 0 evducy-sdqbqikd-wuwaijk [Zenpep] 10,000-32,000 -42,000 unit Capsule,Delayed Release(Dr/Ec) 3 cap PO AC RF: 0 sulfur 10 % bar 1 applic Topical QPM RF: 0 oxycodone-acetaminophen 5-325 mg tablet 1 - 3 tab PO DAILY PRN (Reason: Pain, Moderate) RF: 0 tamsulosin [Flomax] 0.4 MG capsule 0.8 mg PO BEDTIME RF: 0
[2018-02-01 15:45] LABS: INR 1.2 (0.9-1.3); Prothrombin Time 12.6 SECONDS (10.1-12.7)
[2018-02-01 15:46] LABS: Add Manual Diff / Slide Review NO; Basophils Percent Auto 0.3 % (0-2); Eosinophils Percent Auto 4.3 % (2-4); Hematocrit 36.5 % (41-53); Hemoglobin 12.5 g/dL (13.5-17.5); Lymphocytes Percent Auto 15.3 % (25-40); Mean Corpuscular HGB Conc 34.1 % (30-36); Mean Corpuscular Hemoglobin 30.1 PG (26-34); Mean Corpuscular Volume 88.4 fL (80-100); Monocytes Percent Auto 7.1 % (3-14); Neutrophils Absolute Auto 7000 /uL (3000-5900); Platelet Count 184 X10^3/uL (150-400); Red Blood Cell Count 4.13 X10^6/uL (4.5-5.9); Red Cell Distribution Width 14.1 % (11.6-14.8); White Blood Cell Count 9.6 X10^3/uL (4.5-11.0)
[2018-02-01 15:48] LABS: PTT Partial Thromboplastin Tim 28 SECONDS (26.4-36.2)
[2018-02-01 15:50] LABS: Alanine Aminotransferase 30 IU/L (21-72); Albumin 3.9 g/dL (3.5-5.0); Albumin Globulin Ratio 1.6 (1.0-2.8); Alkaline Phosphatase 101 U/L (38-126); Aspartate Aminotransferase 22 IU/L (17-59); BUN Creatinine Ratio 22.2 (6-22); Bilirubin Total 0.2 mg/dL (0.2-1.3); Blood Urea Nitrogen 20 mg/dL (9-20); Calcium 9.2 mg/dL (8.4-10.2); Carbon Dioxide 31 mmol/L (22-32); Chloride 105 mmol/L (98-107); Estimated Glomerular Filt Rate > 60.0 mL/min (>60); Globulin 2.4 g/dL (1.7-4.1); Glucose 95 mg/dL (80-110); HEMOLYSIS < 15 (0-50); Potassium 3.8 mmol/L (3.4-5.1); Sodium 145 mmol/L (137-145); Total Protein 6.3 g/dL (6.3-8.2)
[2018-02-01] MEDS: ONDANSETRON 4 MG/2 ML INJ IV (16:13)
[2018-02-01] MEDS: PANTOPRAZOLE 40 MG VIAL IV (16:13)
[2018-02-01 16:16] LABS: Bacteria Urine None Seen; RBC Urine None Seen (0-5/HPF)
[2018-02-01 16:24] LABS: Culture Indicated Urine Cult Not Indicated; Mucus Urine 2+ (Negative); Squamous Epithelial Cell Urine 0-1 /HPF; WBC Urine 1-5/HPF (0-5/HPF)
== END 2018-02-01 20:29 | disposition short-term general hospital (02) ==
PROVIDERS: Emergency Provider Emergency Medicine; PCP Family Medicine
DX: K92.2 Gastrointestinal hemorrhage, unspecified (principal); Z98.890 Other specified postprocedural states
CPT/HCPCS: 36591; 80053; 81003; 81015; 82272; 85025; 85610; 85730; 86850; 86900; 86901; 96374; 96375; 99284; C9113; J2405

== ENCOUNTER → 2018-02-04 13:50 | Outpatient (CLI) | payer OTHER, SELFPAY ==
[2018-02-04 14:12] LABS: Add Manual Diff / Slide Review NO; Basophils Percent Auto 0.5 % (0-2); Eosinophils Percent Auto 4.2 % (2-4); Hematocrit 39.5 % (41-53); Hemoglobin 13.4 g/dL (13.5-17.5); Mean Corpuscular HGB Conc 33.9 % (30-36); Mean Corpuscular Hemoglobin 30.4 PG (26-34); Mean Corpuscular Volume 89.8 fL (80-100); Monocytes Percent Auto 9.2 % (3-14); Neutrophils Absolute Auto 4800 /uL (3000-5900); Neutrophils Percent Auto 66.1 % (50-75); Platelet Count 188 X10^3/uL (150-400); Red Cell Distribution Width 14.1 % (11.6-14.8); White Blood Cell Count 7.2 X10^3/uL (4.5-11.0)
[2018-02-04 14:41] LABS: Alanine Aminotransferase 19 IU/L (21-72); Albumin 4.1 g/dL (3.5-5.0); Albumin Globulin Ratio 1.7 (1.0-2.8); Alkaline Phosphatase 110 U/L (38-126); Aspartate Aminotransferase 25 IU/L (17-59); Bilirubin Total 0.3 mg/dL (0.2-1.3); Blood Urea Nitrogen 15 mg/dL (9-20); Calcium 9.6 mg/dL (8.4-10.2); Carbon Dioxide 33 mmol/L (22-32); Chloride 103 mmol/L (98-107); Estimated Glomerular Filt Rate > 60.0 mL/min (>60); Globulin 2.4 g/dL (1.7-4.1); Glucose 99 mg/dL (80-110); HEMOLYSIS < 15 (0-50); Potassium 3.7 mmol/L (3.4-5.1); Sodium 145 mmol/L (137-145); Total Protein 6.5 g/dL (6.3-8.2)
== END ==
PROVIDERS: PCP Family Medicine; Visit Provider Internal Medicine
DX: C25.3 Malignant neoplasm of pancreatic duct (principal)
CPT/HCPCS: 36415; 80053; 85025

== ENCOUNTER 2018-02-10 11:24 | Emergency (ER) | payer OTHER, SELFPAY ==
[2018-02-10] VITALS (7 sets, daily range): BP systolic 111–129; BP diastolic 56–96; PULSE 82–101; RESP 14–27; TEMP 37.1; O2SAT 96–100
--- NOTE | 2018-02-10 12:10 | ED.WEAKNESS ---
HPI - Weakness General Chief complaint: Weakness Stated complaint: WEAK, COLD, VOMITING Time Seen by Provider: 02/10/18 11:39 Source: patient and old records reviewed Mode of arrival: ambulatory Limitations: no limitations History of Present Illness HPI Narrative: Patient is 62-year-old male with history of pancreatic cancer and with full surgery at [facility]. He recently was transferred there on 02/01/2018 and for GI bleed. He now is presenting with dizziness weakness is and nausea. He has also got some complaints of shortness of breath no chest pain. He has not been vomiting. He has not had fever though he feels warm he has been complaining of chills. He feels dizzy and lightheaded. He overall looks and feels extremely poorly. He is receiving chemotherapy through a port (folfirinox 01/09 and 01/23 and 01/30) which is directed by oncology at [place]. MD Complaint: generalized weakness Related Data Home Medications Medication Instructions Recorded Confirmed quetiapine [Seroquel XR] 150 mg PO DAILY #0 04/27/16 02/10/18 psyllium husk (aspartame) 1 ea PO DIRECTED #0 06/22/16 02/10/18 [Metamucil Fiber Singles] lamotrigine 300 mg PO QDAY #0 10/02/16 02/10/18 bupropion HCl 300 mg PO QDAY #0 11/07/16 02/10/18 adapalene [Differin] 1 sunny TOPICAL HS #0 06/02/17 02/10/18 docusate sodium 2 cap PO QDAY #60 cap 06/29/17 02/10/18 polyethylene glycol 3350 [Miralax] 1 pac PO DAILY #10 packet 06/29/17 02/10/18 clonazepam 1 mg tablet 3 mg PO BEDTIME tab 01/01/18 02/10/18 fluoxetine 40 mg capsule 40 mg PO DAILY 01/01/18 02/10/18 hydromorphone 2 mg tablet 2 mg PO Q3H PRN tab 01/01/18 02/10/18 sulfacetamide sodium 10 % topical 1 applictn TOP BID 01/01/18 02/10/18 cleanser, gel aluminum chloride in alcohol 1 applic TOPICAL DIRECTED 02/01/18 02/10/18 [Xerac AC] ascorbic acid (vitamin C) [Vitamin 500 mg PO DAILY 02/01/18 02/10/18 C] aspirin 1 tab PO DAILY 02/01/18 02/10/18 azelaic acid [Finacea] 1 applic TOPICAL BID 02/01/18 02/10/18 benzoyl peroxide [Panoxyl] 1 applic TOPICAL QAM 02/01/18 02/10/18 cholecalciferol (vitamin D3) 6,000 unit PO DAILY 02/01/18 02/10/18 [Vitamin D3] coenzyme Q10 [CoQ-10] 300 mg PO DAILY 02/01/18 02/10/18 lidocaine-prilocaine 1 applic TOPICAL DIRECTED 02/01/18 02/10/18 tnejgl-eozjjoyl-vkpdoen [Zenpep] 3 cap PO AC 02/01/18 02/10/18 lorazepam 0.5 mg PO Q8H PRN 02/01/18 02/10/18 melatonin 10 mg PO BEDTIME 02/01/18 02/10/18 minoxidil 1 ml TOPICAL DIRECTED 02/01/18 02/10/18 xzjcqtcu-mrc-TX-lycopen-lutein 1 tab PO DAILY 02/01/18 02/10/18 [Men 50 Plus Multivitamin] ondansetron 8 mg PO QD-BID PRN 02/01/18 02/10/18 oxycodone-acetaminophen 1 - 3 tab PO DAILY PRN 02/01/18 02/10/18 prochlorperazine maleate 10 mg PO PRN PRN 02/01/18 02/10/18 tamsulosin [Flomax] 0.8 mg PO BEDTIME 02/01/18 02/10/18 vit C-vit D-lueodo-skp-om-3 1 cap PO DAILY 02/01/18 02/10/18 [Ocuvite] Previous Rx's Medication Instructions Recorded carbidopa-levodopa 1 tab PO QID #360 tab 08/23/17 montelukast 10 mg PO QDAY #30 tab 08/24/17 dapsone 5 % topical gel 1 applictn TOP BID #60 gram 09/18/17 finasteride 5 mg PO QDAY #90 tab 10/11/17 gabapentin 300 mg capsule 600 mg PO BID #120 cap 01/03/18 Allergies Allergy/AdvReac Type Severity Reaction Status Date / Time fentanyl [FENTANYL] AdvReac Severe tardive Verified 02/10/18 11:41 dykinesia like reaction with breathing cessation midazolam [From VERSED] AdvReac Severe may be Verified 02/10/18 11:41 cause of tardive dyskinesia like sx with breathing sx promethazine [From PHENERGAN] AdvReac Severe tardive Verified 02/10/18 11:41 dyskinesia like effeect Review of Systems Review of Systems All systems reviewed & are unremarkable except as noted in HPI and below Constitutional Denies chills, Denies fever(s), Denies lethargy and Denies weakness Cardiovascular Denies chest pain, Denies irregular heart rhythm, Denies lightheadedness, Denies palpitations, Reports dyspnea and Denies orthopnea Respiratory Denies cough and Reports dyspnea Gastrointestinal Gastrointestinal: Denies abdominal pain, Denies change in bowel habits, Denies diarrhea, Reports nausea and Denies vomiting Integumentary/Breasts Denies pruritus, Denies erythema, Denies rash and Denies wounds Neurologic Denies weakness Endocrine Denies palpitations [facility] Social History marital status: unmarried,single household members: none lives independently: Yes Smoking Status: Never smoker Exam Initial Vital Signs Initial Vital Signs: Vital Signs Temperature 98.7 F 02/10/18 11:33 Pulse Rate 101 H 02/10/18 11:33 Respiratory Rate 18 02/10/18 11:33 Blood Pressure 116/96 H 02/10/18 11:33 Pulse Oximetry 100 02/10/18 11:33 Const General: cooperative, No comfortable, acute distress and ill appearing (Chronically ill) Orientation: alert, awake and oriented x3 [facility] [place] Head: normal to inspection and normocephalic Eyes General: appearance normal, both eyes and all related structures Neck Neck: normal visual inspection, full ROM and no meningeal signs Chest Chest: normal inspection of the chest Resp Effort & Inspection: normal respiratory effort, no grunting, no retractions and tachypneic Auscultation: clear to auscultation bilaterally, no rales, no rhonchi and no wheezes Cardio Rate: tachycardic Skin General: no rashes or lesions noted, No jaundice and No petechiae Neuro General: alert, awake, oriented x3 and CN's II-XI intact bilaterally Motor: muscle tone normal throughout Sensory Exam: no sensory deficits noted Course Orders Ordered: ED Orders 02/10/18 11:40 Complete Blood Count AUTO DIFF Stat Comprehensive Metabolic Panel Stat Lactate (Lactic Acid) Stat Lipase Stat Troponin & CK Cardiac Panel Stat 02/10/18 12:23 CT angio chest PE protocol Stat 02/10/18 13:25 Blood Culture Stat 02/10/18 14:50 Complete Blood Count AUTO DIFF Stat Lactate (Lactic Acid) Stat Sodium Chloride (Normal Saline 0.9%) 1,000 mls @ 1,000 mls/hr IV CONT MICHELA Last Infusion: 02/10/18 16:30 Dose: 0 mls/hr Admin: 02/10/18 14:08 Dose: 1,000 mls/hr Infusion: 02/10/18 13:16 Dose: 1,000 mls/hr Admin: 02/10/18 12:16 Dose: 1,000 mls/hr Sodium Chloride (Normal Saline 0.9%) 1,000 mls @ 150 mls/hr IV BOLUS ONE Stop: 02/10/18 22:09 Last Admin: 02/10/18 16:30 Dose: 150 mls/hr Discontinued Medications Hydromorphone HCl (Dilaudid) 0.5 mg IV NOW ONE Stop: 02/10/18 12:00 Last Admin: 02/10/18 14:25 Dose: Not Given Sodium Chloride (Normal Saline 0.9%) 1,000 mls @ 1,000 mls/hr IV BOLUS ONE Stop: 02/10/18 13:40 Last Infusion: 02/10/18 15:07 Dose: 0 mls/hr Admin: 02/10/18 14:08 Dose: 1,000 mls/hr Vancomycin HCl 1,250 mg/ (Sodium Chloride) 250 mls @ 250 mls/hr IV NOW ONE Stop: 02/10/18 12:41 Last Infusion: 02/10/18 15:36 Dose: 0 mls/hr Admin: 02/10/18 14:04 Dose: 250 mls/hr Piperacillin/Tazobactam/Dextrose (Zosyn) 3.375 gm in 50 mls @ 100 mls/hr IV NOW ONE Stop: 02/10/18 13:09 Last Infusion: 02/10/18 14:00 Dose: 0 mls/hr Admin: 02/10/18 13:01 Dose: 100 mls/hr Ondansetron HCl (Zofran) 4 mg IV NOW ONE Stop: 02/10/18 12:00 Last Admin: 02/10/18 12:16 Dose: 4 mg Vital Signs - 8 hr 02/10/18 11:33 02/10/18 12:20 02/10/18 12:56 Temperature 98.7 F Pulse Rate 101 H 95 H 82 Respiratory Rate 18 27 H 14 Blood Pressure 116/96 H Blood Pressure [Right Arm] 121/74 126/72 Pulse Oximetry 100 100 99 02/10/18 13:30 02/10/18 14:22 02/10/18 16:09 Temperature Pulse Rate 97 H 90 83 Respiratory Rate 16 19 17 Blood Pressure Blood Pressure [Right Arm] 111/72 125/56 L 129/63 Pulse Oximetry 99 96 100 MDM - Weakness Medical Records Attestation: I reviewed the patient's medical records. Lab Data Attestation: I reviewed the patient's lab results. Result diagrams: 02/10/18 14:50 02/10/18 11:40 Lab Results 02/10/18 02/10/18 02/10/18 Range/Units 11:40 11:40 11:40 WBC 53.4 H* (4.5-11.0) X10^3/uL RBC 4.58 (4.5-5.9) X10^6/uL Hgb 13.9 (13.5-17.5) g/dL Hct 40.4 L (41-53) % MCV 88.4 (80-100) fL MCH 30.4 (26-34) PG MCHC 34.4 (30-36) % RDW 14.8 (11.6-14.8) % Plt Count 200 (150-400) X10^3/uL Neut % (Auto) Not Reportable Lymph % (Auto) Not Reportable [place] % (Auto) Not Reportable Eos % (Auto) Not Reportable Baso % (Auto) Not Reportable Neut # (Auto) (8027-3555) /uL Total Counted 100 Seg Neutrophils % 82.0 H (38-70) % Band Neutrophils % 11.0 H (3-7) % Lymphocytes % (Manual) 2.0 L (25-45) % Atypical Lymphs % 1.0 H ( - 0) % Monocytes % (Manual) 2.0 (2-11) % Eosinophils % (Manual) 1.0 L (2-4) % Metamyelocytes % 1.0 H (-0) % Neutrophils # (Manual) 59679 H (2616-9105) /uL RBC Morphology Normal morphology Sodium 142 (137-145) mmol/L Potassium 3.8 (3.4-5.1) mmol/L Chloride 102 (98-107) mmol/L Carbon Dioxide 25 (22-32) mmol/L BUN 22 H (9-20) mg/dL Creatinine 1.10 (0.66-1.25) mg/dL Estimated GFR > 60.0 (>60) mL/min BUN/Creatinine Ratio 20.0 (6-22) Glucose 107 (80-110) mg/dL Lactate 3.2 H (0.7-2.1) mmol/L Calcium 10.0 (8.4-10.2) mg/dL Total Bilirubin 0.6 (0.2-1.3) mg/dL AST 35 (17-59) IU/L ALT 29 (21-72) IU/L Alkaline Phosphatase 185 H D (38-126) U/L Total Creatine Kinase (55-170) U/L CK-MB (CK-2) CK-MB (CK-2) Rel Index Troponin I (0.01-0.034) ng/mL Total Protein 6.8 (6.3-8.2) g/dL Albumin 4.3 (3.5-5.0) g/dL Globulin 2.5 (1.7-4.1) g/dL Albumin/Globulin Ratio 1.7 (1.0-2.8) Lipase 37 (23-300) U/L 02/10/18 02/10/18 02/10/18 Range/Units 11:40 14:50 14:50 WBC 49.3 H* (4.5-11.0) X10^3/uL RBC 4.18 L (4.5-5.9) X10^6/uL Hgb 12.6 L (13.5-17.5) g/dL Hct 36.8 L (41-53) % MCV 88.0 (80-100) fL MCH 30.2 (26-34) PG MCHC 34.3 (30-36) % RDW 14.8 (11.6-14.8) % Plt Count 166 (150-400) X10^3/uL Neut % (Auto) 94.1 H Lymph % (Auto) 4.1 L [place] % (Auto) 0.8 L Eos % (Auto) 0.3 L Baso % (Auto) 0.7 Neut # (Auto) 37186 H (0603-6890) /uL Total Counted Seg Neutrophils % (38-70) % Band Neutrophils % (3-7) % Lymphocytes % (Manual) (25-45) % Atypical Lymphs % ( - 0) % Monocytes % (Manual) (2-11) % Eosinophils % (Manual) (2-4) % Metamyelocytes % (-0) % Neutrophils # (Manual) (6336-4140) /uL RBC Morphology Sodium (137-145) mmol/L Potassium (3.4-5.1) mmol/L Chloride (98-107) mmol/L Carbon Dioxide (22-32) mmol/L BUN (9-20) mg/dL Creatinine (0.66-1.25) mg/dL Estimated GFR (>60) mL/min BUN/Creatinine Ratio (6-22) Glucose (80-110) mg/dL Lactate 0.9 (0.7-2.1) mmol/L Calcium (8.4-10.2) mg/dL Total Bilirubin (0.2-1.3) mg/dL AST (17-59) IU/L ALT (21-72) IU/L Alkaline Phosphatase (38-126) U/L Total Creatine Kinase 86 (55-170) U/L CK-MB (CK-2) TNP CK-MB (CK-2) Rel Index TNP Troponin I < 0.012 (0.01-0.034) ng/mL Total Protein (6.3-8.2) g/dL Albumin (3.5-5.0) g/dL Globulin (1.7-4.1) g/dL Albumin/Globulin Ratio (1.0-2.8) Lipase (23-300) U/L Urine Dip Bedside Urine Glucose Negative Bedside Urine Bilirubin - Negative Bedside Urine Ketone ++ 40 Urine Specific [place] 1.010 Bedside Urine Occult Blood - Negative Bedside Urine pH 8.5 Bedside Urine Protein - Negative Bedside Urine Urobilinogen - Negative Bedside Urine Nitrite - Negative Bedside Urine Leukocytes - Negative Esterase Imaging Data CT PE: Radiologist's impression: PROCEDURE: CT ANGIO CHEST PE PROTOCOL INDICATIONS: short of breath known pancreatic cancer TECHNIQUE: After the administration of intravenous contrast, 2 mm thick sections acquired from the pulmonary apices to the posterior costophrenic angles. 3-dimensional maximum intensity projection (MIP) coronal and sagittal reformats were then acquired through the thorax. For radiation dose reduction, the following was used: automated exposure control, adjustment of mA and/or kV according to patient size. COMPARISON: [facility], MR, MR ABDOMEN WO/W CON, 10/03/2017, 9:18. [facility], CT, ABDOMEN/PELVIS WITH CONTRAST, 06/02/2017, 10:45. [facility], CT, KIDNEY/ URETER/BLADDER, 12/06/2011, 14:07. FINDINGS: Image quality: Excellent. Pulmonary arteries: Pulmonary arteries are normal in size, and demonstrate no intraluminal filling defects to suggest central pulmonary embolism. Lungs and pleura: Peripheral tree in bud pulmonary opacities in the right upper lobe on axial image 23 of series 5 and axial image 25 of series 5 noted. Punctate bilateral pulmonary nodules are noted. No pleural effusions or pneumothorax. Central and peripheral airways are patent. Mediastinum: Heart size is normal, without pericardial effusion. No mediastinal or hilar adenopathy. Thoracic aorta is normal in caliber and enhancement. Bones and chest wall: No suspicious bony lesions. Ribs and thoracic spine appear intact throughout. No axillary or supraclavicular adenopathy. Moderate changes of the spine. Abdomen: Spleen is mildly enlarged. There is a 2.6 cm posterior right hepatic lobe hypoattenuating mass with peripheral nodular enhancement, correlating with a hepatic hemangioma seen on comparison exams. Persistent area of hypoattenuation within the uncinate process of the pancreas as described on comparison MRI of 10/03/17, measuring 1.9 cm in diameter.. IMPRESSION: #1. No central pulmonary emboli. #2. Peripheral pulmonary opacities in the peripheral right upper lobe may represent developing infection/pneumonia in the appropriate clinical setting. #3. Persistent 1.9 cm hypoattenuating region in the uncinate process of the pancreas, as described on comparison MRI of 10/03/17. Please see comparison MRI report for recommendations for further evaluation. Dictated by: Gordo Mascorro M.D. on 02/10/2018 at 13:02 ECG Data Attestation: I personally reviewed and interpreted this ECG as follows: Prior ECG tracings: not available for review Interpretation: Sinus rhythm rate [address] changes slight T-wave inversion noted in lead 3 MDM Narrative Medical decision making narrative: [place] [address] and elevated lactic acid of 3.4. Previous WBC count from last week shows a white count of and 9000. He is afebrile here but complains of being cold. No infectious symptoms. I suspect either new acute leukemia. A CT does show possible pneumonia in the upper lobes however patient does not have any cough. Negative for PE. His urine dip is clean. His abdomen remained soft. Tubbs aware. Accepting Dr. Ngo Repeat blood work does show significant improvement in lactic acid but continued elevated WBC. He remains hemodynamically stable. Discharge Plan Departure Patient Disposition: [facility] Clinical Impression: Sepsis, Pneumonia Interventions: ED Discharge Assessment Last Done: 02/10/18 16:40 Prescriptions: No Action clonazepam 1 mg tablet 3 mg PO BEDTIME RF: 0 fluoxetine 40 mg capsule 40 mg PO DAILY RF: 0 sulfacetamide sodium 10 % cleanser, gel 1 applictn TOP BID RF: 0 hydromorphone [Dilaudid] 2 mg tablet 2 mg PO Q3H PRN (Reason: Pain, Moderate) RF: 0 dapsone 5 % gel 1 applictn TOP BID Qty: 60 RF: 0 quetiapine [Seroquel XR] 150 MG tablet extended release 24 hr 150 mg PO DAILY Qty: 0 RF: 0 psyllium husk (aspartame) [Metamucil Fiber Singles] 3.4 gram Powder In Packet 1 ea PO DIRECTED Qty: 0 RF: 0 lamotrigine 300 MG tablet extended release 24hr 300 mg PO QDAY Qty: 0 RF: 0 bupropion HCl 300 MG tablet extended release 24 hr 300 mg PO QDAY Qty: 0 RF: 0 adapalene [Differin] 0.3 % gel 1 sunny Topical HS Qty: 0 RF: 0 docusate sodium 250 MG capsule 2 cap PO QDAY Qty: 60 RF: 2 polyethylene glycol 3350 [Miralax] 17 GM powder in packet 1 pac PO DAILY Qty: 10 RF: 2 carbidopa-levodopa 50 MG/200 MG tablet extended release 1 tab PO QID Qty: 360 RF: 3 montelukast 10 MG tablet 10 mg PO QDAY Qty: 30 RF: 5 finasteride 5 mg tablet 5 mg PO QDAY Qty: 90 RF: 3 gabapentin [Neurontin] 300 mg capsule 600 mg PO BID Qty: 120 RF: 5 benzoyl peroxide [Panoxyl] 10 % Cleanser 1 applic Topical QAM RF: 0 prochlorperazine maleate 10 mg Tablet 10 mg PO PRN PRN (Reason: Nausea) RF: 0 aspirin 81 mg Tablet,Delayed Release (Dr/Ec) 1 tab PO DAILY RF: 0 minoxidil 5 % Solution 1 ml TOPICAL DIRECTED RF: 0 ondansetron 8 mg Tablet,Disintegrating 8 mg PO QD-BID PRN (Reason: Nausea) RF: 0 lidocaine-prilocaine 2.5-2.5 % Cream 1 applic Topical DIRECTED RF: 0 lorazepam 0.5 mg Tablet 0.5 mg PO Q8H PRN (Reason: as directed) RF: 0 ascorbic acid (vitamin C) [Vitamin C] 500 mg Tablet 500 mg PO DAILY RF: 0 aluminum chloride in alcohol [Xerac AC] 6.25 % Solution 1 applic Topical DIRECTED RF: 0 coenzyme Q10 [CoQ-10] 100 mg Capsule 300 mg PO DAILY RF: 0 vit C-vit T-wjbyie-ins-om-3 [Ocuvite] 910-16-2-150 wy-topb-bj-mg Capsule 1 cap PO DAILY RF: 0 cholecalciferol (vitamin D3) [Vitamin D3] 2,000 unit Capsule 6,000 unit PO DAILY RF: 0 dupkgcbp-ctv-NZ-lycopen-lutein [Men 50 Plus Multivitamin] 300-600-300 mcg Tablet 1 tab PO DAILY RF: 0 melatonin 10 mg Tablet 10 mg PO BEDTIME RF: 0 azelaic acid [Finacea] 15 % Foam 1 applic Topical BID RF: 0 pltlzs-lovkrctx-abjcwav [Zenpep] 10,000-32,000 -42,000 unit Capsule,Delayed Release(Dr/Ec) 3 cap PO AC RF: 0 oxycodone-acetaminophen 5-325 mg tablet 1 - 3 tab PO DAILY PRN (Reason: Pain, Moderate) RF: 0 tamsulosin [Flomax] 0.4 MG capsule 0.8 mg PO BEDTIME RF: 0
--- NOTE | 2018-02-10 12:13 | ED_ITS ---
HPI - Weakness General Chief complaint: Weakness Stated complaint: WEAK, COLD, VOMITING Time Seen by Provider: 02/10/18 11:39 Source: patient and old records reviewed Mode of arrival: ambulatory Limitations: no limitations History of Present Illness HPI Narrative: Patient is 62-year-old male with history of pancreatic cancer and with full surgery at [facility]. He recently was transferred there on 02/01/2018 and for GI bleed. He now is presenting with dizziness weakness is and nausea. He has also got some complaints of shortness of breath no chest pain. He has not been vomiting. He has not had fever though he feels warm he has been complaining of chills. He feels dizzy and lightheaded. He overall looks and feels extremely poorly. He is receiving chemotherapy through a port (folfirinox 01/09 and 01/23 and 01/30) which is directed by oncology at [place]. MD Complaint: generalized weakness Related Data Home Medications Medication Instructions Recorded Confirmed quetiapine [Seroquel XR] 150 mg PO DAILY #0 04/27/16 02/10/18 psyllium husk (aspartame) 1 ea PO DIRECTED #0 06/22/16 02/10/18 [Metamucil Fiber Singles] lamotrigine 300 mg PO QDAY #0 10/02/16 02/10/18 bupropion HCl 300 mg PO QDAY #0 11/07/16 02/10/18 adapalene [Differin] 1 sunny TOPICAL HS #0 06/02/17 02/10/18 docusate sodium 2 cap PO QDAY #60 cap 06/29/17 02/10/18 polyethylene glycol 3350 [Miralax] 1 pac PO DAILY #10 packet 06/29/17 02/10/18 clonazepam 1 mg tablet 3 mg PO BEDTIME tab 01/01/18 02/10/18 fluoxetine 40 mg capsule 40 mg PO DAILY 01/01/18 02/10/18 hydromorphone 2 mg tablet 2 mg PO Q3H PRN tab 01/01/18 02/10/18 sulfacetamide sodium 10 % topical 1 applictn TOP BID 01/01/18 02/10/18 cleanser, gel aluminum chloride in alcohol 1 applic TOPICAL DIRECTED 02/01/18 02/10/18 [Xerac AC] ascorbic acid (vitamin C) [Vitamin 500 mg PO DAILY 02/01/18 02/10/18 C] aspirin 1 tab PO DAILY 02/01/18 02/10/18 azelaic acid [Finacea] 1 applic TOPICAL BID 02/01/18 02/10/18 benzoyl peroxide [Panoxyl] 1 applic TOPICAL QAM 02/01/18 02/10/18 cholecalciferol (vitamin D3) 6,000 unit PO DAILY 02/01/18 02/10/18 [Vitamin D3] coenzyme Q10 [CoQ-10] 300 mg PO DAILY 02/01/18 02/10/18 lidocaine-prilocaine 1 applic TOPICAL DIRECTED 02/01/18 02/10/18 uinfhx-tihoihng-vyyobiw [Zenpep] 3 cap PO AC 02/01/18 02/10/18 lorazepam 0.5 mg PO Q8H PRN 02/01/18 02/10/18 melatonin 10 mg PO BEDTIME 02/01/18 02/10/18 minoxidil 1 ml TOPICAL DIRECTED 02/01/18 02/10/18 eiumdeyd-ylf-PR-lycopen-lutein 1 tab PO DAILY 02/01/18 02/10/18 [Men 50 Plus Multivitamin] ondansetron 8 mg PO QD-BID PRN 02/01/18 02/10/18 oxycodone-acetaminophen 1 - 3 tab PO DAILY PRN 02/01/18 02/10/18 prochlorperazine maleate 10 mg PO PRN PRN 02/01/18 02/10/18 tamsulosin [Flomax] 0.8 mg PO BEDTIME 02/01/18 02/10/18 vit C-vit O-ckypdr-vxd-om-3 1 cap PO DAILY 02/01/18 02/10/18 [Ocuvite] Previous Rx's Medication Instructions Recorded carbidopa-levodopa 1 tab PO QID #360 tab 08/23/17 montelukast 10 mg PO QDAY #30 tab 08/24/17 dapsone 5 % topical gel 1 applictn TOP BID #60 gram 09/18/17 finasteride 5 mg PO QDAY #90 tab 10/11/17 gabapentin 300 mg capsule 600 mg PO BID #120 cap 01/03/18 Allergies Allergy/AdvReac Type Severity Reaction Status Date / Time fentanyl [FENTANYL] AdvReac Severe tardive Verified 02/10/18 11:41 dykinesia like reaction with breathing cessation midazolam [From VERSED] AdvReac Severe may be Verified 02/10/18 11:41 cause of tardive dyskinesia like sx with breathing sx promethazine [From PHENERGAN] AdvReac Severe tardive Verified 02/10/18 11:41 dyskinesia like effeect Review of Systems Review of Systems All systems reviewed & are unremarkable except as noted in HPI and below Constitutional Denies chills, Denies fever(s), Denies lethargy and Denies weakness Cardiovascular Denies chest pain, Denies irregular heart rhythm, Denies lightheadedness, Denies palpitations, Reports dyspnea and Denies orthopnea Respiratory Denies cough and Reports dyspnea Gastrointestinal Gastrointestinal: Denies abdominal pain, Denies change in bowel habits, Denies diarrhea, Reports nausea and Denies vomiting Integumentary/Breasts Denies pruritus, Denies erythema, Denies rash and Denies wounds Neurologic Denies weakness Endocrine Denies palpitations [facility] Social History marital status: unmarried,single household members: none lives independently: Yes Smoking Status: Never smoker Exam Initial Vital Signs Initial Vital Signs: Vital Signs Temperature 98.7 F 02/10/18 11:33 Pulse Rate 101 H 02/10/18 11:33 Respiratory Rate 18 02/10/18 11:33 Blood Pressure 116/96 H 02/10/18 11:33 Pulse Oximetry 100 02/10/18 11:33 Const General: cooperative, No comfortable, acute distress and ill appearing ( Chronically ill) Orientation: alert, awake and oriented x3 [facility] Head: normal to inspection and normocephalic Eyes General: appearance normal, both eyes and all related structures Neck Neck: normal visual inspection, full ROM and no meningeal signs Chest Chest: normal inspection of the chest Resp Effort & Inspection: normal respiratory effort, no grunting, no retractions and tachypneic Auscultation: clear to auscultation bilaterally, no rales, no rhonchi and no wheezes Cardio Rate: tachycardic Skin General: no rashes or lesions noted, No jaundice and No petechiae Neuro General: alert, awake, oriented x3 and CN's II-XI intact bilaterally Motor: muscle tone normal throughout Sensory Exam: no sensory deficits noted Course Orders Ordered: ED Orders 02/10/18 11:40 Complete Blood Count AUTO DIFF Stat Comprehensive Metabolic Panel Stat Lactate (Lactic Acid) Stat Lipase Stat Troponin & CK Cardiac Panel Stat 02/10/18 12:23 CT angio chest PE protocol Stat 02/10/18 13:25 Blood Culture Stat 02/10/18 14:50 Complete Blood Count AUTO DIFF Stat Lactate (Lactic Acid) Stat Sodium Chloride (Normal Saline 0.9%) 1,000 mls @ 1,000 mls/hr IV CONT MICHELA Last Infusion: 02/10/18 16:30 Dose: 0 mls/hr Admin: 02/10/18 14:08 Dose: 1,000 mls/hr Infusion: 02/10/18 13:16 Dose: 1,000 mls/hr Admin: 02/10/18 12:16 Dose: 1,000 mls/hr Sodium Chloride (Normal Saline 0.9%) 1,000 mls @ 150 mls/hr IV BOLUS ONE Stop: 02/10/18 22:09 Last Admin: 02/10/18 16:30 Dose: 150 mls/hr Discontinued Medications Hydromorphone HCl (Dilaudid) 0.5 mg IV NOW ONE Stop: 02/10/18 12:00 Last Admin: 02/10/18 14:25 Dose: Not Given Sodium Chloride (Normal Saline 0.9%) 1,000 mls @ 1,000 mls/hr IV BOLUS ONE Stop: 02/10/18 13:40 Last Infusion: 02/10/18 15:07 Dose: 0 mls/hr Admin: 02/10/18 14:08 Dose: 1,000 mls/hr Vancomycin HCl 1,250 mg/ (Sodium Chloride) 250 mls @ 250 mls/hr IV NOW ONE Stop: 02/10/18 12:41 Last Infusion: 02/10/18 15:36 Dose: 0 mls/hr Admin: 02/10/18 14:04 Dose: 250 mls/hr Piperacillin/Tazobactam/Dextrose (Zosyn) 3.375 gm in 50 mls @ 100 mls/hr IV NOW ONE Stop: 02/10/18 13:09 Last Infusion: 02/10/18 14:00 Dose: 0 mls/hr Admin: 02/10/18 13:01 Dose: 100 mls/hr Ondansetron HCl (Zofran) 4 mg IV NOW ONE Stop: 02/10/18 12:00 Last Admin: 02/10/18 12:16 Dose: 4 mg Vital Signs - 8 hr 02/10/18 11:33 02/10/18 12:20 02/10/18 12:56 Temperature 98.7 F Pulse Rate 101 H 95 H 82 Respiratory Rate 18 27 H 14 Blood Pressure 116/96 H Blood Pressure [Right Arm] 121/74 126/72 Pulse Oximetry 100 100 99 02/10/18 13:30 02/10/18 14:22 02/10/18 16:09 Temperature Pulse Rate 97 H 90 83 Respiratory Rate 16 19 17 Blood Pressure Blood Pressure [Right Arm] 111/72 125/56 L 129/63 Pulse Oximetry 99 96 100 MDM - Weakness Medical Records Attestation: I reviewed the patient's medical records. Lab Data Attestation: I reviewed the patient's lab results. Result diagrams: 02/10/18 14:50 02/10/18 11:40 Lab Results 02/10/18 02/10/18 02/10/18 Range/Units 11:40 11:40 11:40 WBC 53.4 H* (4.5-11.0) X10^3/uL RBC 4.58 (4.5-5.9) X10^6/uL Hgb 13.9 (13.5-17.5) g/dL Hct 40.4 L (41-53) % MCV 88.4 (80-100) fL MCH 30.4 (26-34) PG MCHC 34.4 (30-36) % RDW 14.8 (11.6-14.8) % Plt Count 200 (150-400) X10^3/uL Neut % (Auto) Not Reportable Lymph % (Auto) Not Reportable Emmons % (Auto) Not Reportable Eos % (Auto) Not Reportable Baso % (Auto) Not Reportable Neut # (Auto) (4644-3840) /uL Total Counted 100 Seg Neutrophils % 82.0 H (38-70) % Band Neutrophils % 11.0 H (3-7) % Lymphocytes % (Manual) 2.0 L (25-45) % Atypical Lymphs % 1.0 H ( - 0) % Monocytes % (Manual) 2.0 (2-11) % Eosinophils % (Manual) 1.0 L (2-4) % Metamyelocytes % 1.0 H (-0) % Neutrophils # (Manual) 21866 H (3308-3511) /uL RBC Morphology Normal morphology Sodium 142 (137-145) mmol/L Potassium 3.8 (3.4-5.1) mmol/L Chloride 102 (98-107) mmol/L Carbon Dioxide 25 (22-32) mmol/L BUN 22 H (9-20) mg/dL Creatinine 1.10 (0.66-1.25) mg/dL Estimated GFR > 60.0 (>60) mL/min BUN/Creatinine Ratio 20.0 (6-22) Glucose 107 (80-110) mg/dL Lactate 3.2 H (0.7-2.1) mmol/L Calcium 10.0 (8.4-10.2) mg/dL Total Bilirubin 0.6 (0.2-1.3) mg/dL AST 35 (17-59) IU/L ALT 29 (21-72) IU/L Alkaline Phosphatase 185 H D (38-126) U/L Total Creatine Kinase (55-170) U/L CK-MB (CK-2) CK-MB (CK-2) Rel Index Troponin I (0.01-0.034) ng/mL Total Protein 6.8 (6.3-8.2) g/dL Albumin 4.3 (3.5-5.0) g/dL Globulin 2.5 (1.7-4.1) g/dL Albumin/Globulin Ratio 1.7 (1.0-2.8) Lipase 37 (23-300) U/L 02/10/18 02/10/18 02/10/18 Range/Units 11:40 14:50 14:50 WBC 49.3 H* (4.5-11.0) X10^3/uL RBC 4.18 L (4.5-5.9) X10^6/uL Hgb 12.6 L (13.5-17.5) g/dL Hct 36.8 L (41-53) % MCV 88.0 (80-100) fL MCH 30.2 (26-34) PG MCHC 34.3 (30-36) % RDW 14.8 (11.6-14.8) % Plt Count 166 (150-400) X10^3/uL Neut % (Auto) 94.1 H Lymph % (Auto) 4.1 L Emmons % (Auto) 0.8 L Eos % (Auto) 0.3 L Baso % (Auto) 0.7 Neut # (Auto) 15506 H (8954-3007) /uL Total Counted Seg Neutrophils % (38-70) % Band Neutrophils % (3-7) % Lymphocytes % (Manual) (25-45) % Atypical Lymphs % ( - 0) % Monocytes % (Manual) (2-11) % Eosinophils % (Manual) (2-4) % Metamyelocytes % (-0) % Neutrophils # (Manual) (3191-2718) /uL RBC Morphology Sodium (137-145) mmol/L Potassium (3.4-5.1) mmol/L Chloride (98-107) mmol/L Carbon Dioxide (22-32) mmol/L BUN (9-20) mg/dL Creatinine (0.66-1.25) mg/dL Estimated GFR (>60) mL/min BUN/Creatinine Ratio (6-22) Glucose (80-110) mg/dL Lactate 0.9 (0.7-2.1) mmol/L Calcium (8.4-10.2) mg/dL Total Bilirubin (0.2-1.3) mg/dL AST (17-59) IU/L ALT (21-72) IU/L Alkaline Phosphatase (38-126) U/L Total Creatine Kinase 86 (55-170) U/L CK-MB (CK-2) TNP CK-MB (CK-2) Rel Index TNP Troponin I < 0.012 (0.01-0.034) ng/mL Total Protein (6.3-8.2) g/dL Albumin (3.5-5.0) g/dL Globulin (1.7-4.1) g/dL Albumin/Globulin Ratio (1.0-2.8) Lipase (23-300) U/L Urine Dip Bedside Urine Glucose Negative Bedside Urine Bilirubin - Negative Bedside Urine Ketone ++ 40 Urine Specific Harper 1.010 Bedside Urine Occult Blood - Negative Bedside Urine pH 8.5 Bedside Urine Protein - Negative Bedside Urine Urobilinogen - Negative Bedside Urine Nitrite - Negative Bedside Urine Leukocytes - Negative Esterase Imaging Data CT PE: Radiologist's impression: PROCEDURE: CT ANGIO CHEST PE PROTOCOL INDICATIONS: short of breath known pancreatic cancer TECHNIQUE: After the administration of intravenous contrast, 2 mm thick sections acquired from the pulmonary apices to the posterior costophrenic angles. 3-dimensional maximum intensity projection (MIP) coronal and sagittal reformats were then acquired through the thorax. For radiation dose reduction, the following was used: automated exposure control, adjustment of mA and/or kV according to patient size. COMPARISON: [facility], MR, MR ABDOMEN WO/W CON, 10/03/2017, 9:18. [facility], CT, ABDOMEN/PELVIS WITH CONTRAST, 06/02/2017, 10:45. [facility], CT, KIDNEY / URETER/BLADDER, 12/06/2011, 14:07. FINDINGS: Image quality: Excellent. Pulmonary arteries: Pulmonary arteries are normal in size, and demonstrate no intraluminal filling defects to suggest central pulmonary embolism. Lungs and pleura: Peripheral tree in bud pulmonary opacities in the right upper lobe on axial image 23 of series 5 and axial image 25 of series 5 noted. Punctate bilateral pulmonary nodules are noted. No pleural effusions or pneumothorax. Central and peripheral airways are patent. Mediastinum: Heart size is normal, without pericardial effusion. No mediastinal or hilar adenopathy. Thoracic aorta is normal in caliber and enhancement. Bones and chest wall: No suspicious bony lesions. Ribs and thoracic spine appear intact throughout. No axillary or supraclavicular adenopathy. Moderate changes of the spine. Abdomen: Spleen is mildly enlarged. There is a 2.6 cm posterior right hepatic lobe hypoattenuating mass with peripheral nodular enhancement, correlating with a hepatic hemangioma seen on comparison exams. Persistent area of hypoattenuation within the uncinate process of the pancreas as described on comparison MRI of 10/03/17, measuring 1.9 cm in diameter.. IMPRESSION: #1. No central pulmonary emboli. #2. Peripheral pulmonary opacities in the peripheral right upper lobe may represent developing infection/pneumonia in the appropriate clinical setting. #3. Persistent 1.9 cm hypoattenuating region in the uncinate process of the pancreas, as described on comparison MRI of 10/03/17. Please see comparison MRI report for recommendations for further evaluation. Dictated by: Gordo Mascorro M.D. on 02/10/2018 at 13:02 ECG Data Attestation: I personally reviewed and interpreted this ECG as follows: Prior ECG tracings: not available for review Interpretation: Sinus rhythm rate [address] changes slight T-wave inversion noted in lead 3 MDM Narrative Medical decision making narrative: [place] [address] and elevated lactic acid of 3.4. Previous WBC count from last week shows a white count of and 9000. He is afebrile here but complains of being cold. No infectious symptoms. I suspect either new acute leukemia. A CT does show possible pneumonia in the upper lobes however patient does not have any cough. Negative for PE. His urine dip is clean. His abdomen remained soft. Tubbs aware. Accepting Dr. Ngo Repeat blood work does show significant improvement in lactic acid but continued elevated WBC. He remains hemodynamically stable. Discharge Plan Departure Patient Disposition: [facility] Clinical Impression: Sepsis, Pneumonia Interventions: ED Discharge Assessment Last Done: 02/10/18 16:40 Prescriptions: No Action clonazepam 1 mg tablet 3 mg PO BEDTIME RF: 0 fluoxetine 40 mg capsule 40 mg PO DAILY RF: 0 sulfacetamide sodium 10 % cleanser, gel 1 applictn TOP BID RF: 0 hydromorphone [Dilaudid] 2 mg tablet 2 mg PO Q3H PRN (Reason: Pain, Moderate) RF: 0 dapsone 5 % gel 1 applictn TOP BID Qty: 60 RF: 0 quetiapine [Seroquel XR] 150 MG tablet extended release 24 hr 150 mg PO DAILY Qty: 0 RF: 0 psyllium husk (aspartame) [Metamucil Fiber Singles] 3.4 gram Powder In Packet 1 ea PO DIRECTED Qty: 0 RF: 0 lamotrigine 300 MG tablet extended release 24hr 300 mg PO QDAY Qty: 0 RF: 0 bupropion HCl 300 MG tablet extended release 24 hr 300 mg PO QDAY Qty: 0 RF: 0 adapalene [Differin] 0.3 % gel 1 sunny Topical HS Qty: 0 RF: 0 docusate sodium 250 MG capsule 2 cap PO QDAY Qty: 60 RF: 2 polyethylene glycol 3350 [Miralax] 17 GM powder in packet 1 pac PO DAILY Qty: 10 RF: 2 carbidopa-levodopa 50 MG/200 MG tablet extended release 1 tab PO QID Qty: 360 RF: 3 montelukast 10 MG tablet 10 mg PO QDAY Qty: 30 RF: 5 finasteride 5 mg tablet 5 mg PO QDAY Qty: 90 RF: 3 gabapentin [Neurontin] 300 mg capsule 600 mg PO BID Qty: 120 RF: 5 benzoyl peroxide [Panoxyl] 10 % Cleanser 1 applic Topical QAM RF: 0 prochlorperazine maleate 10 mg Tablet 10 mg PO PRN PRN (Reason: Nausea) RF: 0 aspirin 81 mg Tablet,Delayed Release (Dr/Ec) 1 tab PO DAILY RF: 0 minoxidil 5 % Solution 1 ml TOPICAL DIRECTED RF: 0 ondansetron 8 mg Tablet,Disintegrating 8 mg PO QD-BID PRN (Reason: Nausea) RF: 0 lidocaine-prilocaine 2.5-2.5 % Cream 1 applic Topical DIRECTED RF: 0 lorazepam 0.5 mg Tablet 0.5 mg PO Q8H PRN (Reason: as directed) RF: 0 ascorbic acid (vitamin C) [Vitamin C] 500 mg Tablet 500 mg PO DAILY RF: 0 aluminum chloride in alcohol [Xerac AC] 6.25 % Solution 1 applic Topical DIRECTED RF: 0 coenzyme Q10 [CoQ-10] 100 mg Capsule 300 mg PO DAILY RF: 0 vit C-vit O-cfbalo-ipm-om-3 [Ocuvite] 683-01-5-150 oz-twaw-zz-mg Capsule 1 cap PO DAILY RF: 0 cholecalciferol (vitamin D3) [Vitamin D3] 2,000 unit Capsule 6,000 unit PO DAILY RF: 0 hsshtmss-drw-PM-lycopen-lutein [Men 50 Plus Multivitamin] 300-600-300 mcg Tablet 1 tab PO DAILY RF: 0 melatonin 10 mg Tablet 10 mg PO BEDTIME RF: 0 azelaic acid [Finacea] 15 % Foam 1 applic Topical BID RF: 0 ftuyed-ecowtxlp-ycpoznz [Zenpep] 10,000-32,000 -42,000 unit Capsule,Delayed Release(Dr/Ec) 3 cap PO AC RF: 0 oxycodone-acetaminophen 5-325 mg tablet 1 - 3 tab PO DAILY PRN (Reason: Pain, Moderate) RF: 0 tamsulosin [Flomax] 0.4 MG capsule 0.8 mg PO BEDTIME RF: 0
[2018-02-10] MEDS: ONDANSETRON 4 MG/2 ML INJ IV (12:16)
[2018-02-10] MEDS: SODIUM CHLORIDE 0.9% 1,000 ML 1000 ML IV ×3 (12:16→14:08)
[2018-02-10 12:18] LABS: Hematocrit 40.4 % (41-53); Hemoglobin 13.9 g/dL (13.5-17.5); Mean Corpuscular HGB Conc 34.4 % (30-36); Mean Corpuscular Hemoglobin 30.4 PG (26-34); Mean Corpuscular Volume 88.4 fL (80-100); Platelet Count 200 X10^3/uL (150-400); Red Blood Cell Count 4.58 X10^6/uL (4.5-5.9); Red Cell Distribution Width 14.8 % (11.6-14.8)
--- NOTE | 2018-02-10 12:21 | PC.NURSE ---
Patient laying still eyes closed reports dizziness is worse with open eyes and movement. Patient reports SOB, nausea, has had dry heaves, nausea, diarrhea and cramping since sunday evening. Patient completed chemo through a pump on sunday
--- NOTE | 2018-02-10 12:23 | DI.CT.S_ITS ---
PROCEDURE: CT ANGIO CHEST PE PROTOCOL INDICATIONS: short of breath known pancreatic cancer TECHNIQUE: After the administration of intravenous contrast, 2 mm thick sections acquired from the pulmonary apices to the posterior costophrenic angles. 3-dimensional maximum intensity projection (MIP) coronal and sagittal reformats were then acquired through the thorax. For radiation dose reduction, the following was used: automated exposure control, adjustment of mA and/or kV according to patient size. COMPARISON: [facility], MR, MR ABDOMEN WO/W CON, 10/03/2017, 9:18. [facility], CT, ABDOMEN/PELVIS WITH CONTRAST, 06/02/2017, 10:45. [facility], CT, KIDNEY/ URETER/BLADDER, 12/06/2011, 14:07. FINDINGS: Image quality: Excellent. Pulmonary arteries: Pulmonary arteries are normal in size, and demonstrate no intraluminal filling defects to suggest central pulmonary embolism. Lungs and pleura: Peripheral tree in bud pulmonary opacities in the right upper lobe on axial image 23 of series 5 and axial image 25 of series 5 noted. Punctate bilateral pulmonary nodules are noted. No pleural effusions or pneumothorax. Central and peripheral airways are patent. Mediastinum: Heart size is normal, without pericardial effusion. No mediastinal or hilar adenopathy. Thoracic aorta is normal in caliber and enhancement. Bones and chest wall: No suspicious bony lesions. Ribs and thoracic spine appear intact throughout. No axillary or supraclavicular adenopathy. Moderate changes of the spine. Abdomen: Spleen is mildly enlarged. There is a 2.6 cm posterior right hepatic lobe hypoattenuating mass with peripheral nodular enhancement, correlating with a hepatic hemangioma seen on comparison exams. Persistent area of hypoattenuation within the uncinate process of the pancreas as described on comparison MRI of 10/03/17, measuring 1.9 cm in diameter.. IMPRESSION: #1. No central pulmonary emboli. #2. Peripheral pulmonary opacities in the peripheral right upper lobe may represent developing infection/pneumonia in the appropriate clinical setting. #3. Persistent 1.9 cm hypoattenuating region in the uncinate process of the pancreas, as described on comparison MRI of 10/03/17. Please see comparison MRI report for recommendations for further evaluation. Dictated by: Gordo Mascorro M.D. on 02/10/2018 at 13:02 Approved by: Gordo Mascorro M.D. on 02/10/2018 at 13:15
[2018-02-10 12:27] LABS: Add Manual Diff / Slide Review YES; White Blood Cell Count 53.4 X10^3/uL (4.5-11.0)
[2018-02-10 12:29] LABS: Lactate (Lactic Acid) 3.2 mmol/L (0.7-2.1)
[2018-02-10 12:30] LABS: Alanine Aminotransferase 29 IU/L (21-72); Albumin 4.3 g/dL (3.5-5.0); Albumin Globulin Ratio 1.7 (1.0-2.8); Alkaline Phosphatase 185 U/L (38-126); Aspartate Aminotransferase 35 IU/L (17-59); Bilirubin Total 0.6 mg/dL (0.2-1.3); Blood Urea Nitrogen 22 mg/dL (9-20); Carbon Dioxide 25 mmol/L (22-32); Chloride 102 mmol/L (98-107); Estimated Glomerular Filt Rate > 60.0 mL/min (>60); Globulin 2.5 g/dL (1.7-4.1); Glucose 107 mg/dL (80-110); HEMOLYSIS < 15 (0-50); Lipase 37 U/L (23-300); Potassium 3.8 mmol/L (3.4-5.1); Sodium 142 mmol/L (137-145); Total Protein 6.8 g/dL (6.3-8.2)
[2018-02-10 12:33] LABS: Neutrophils Absolute Manual 49662 /uL (3000-5900); Total Cells Counted 100
[2018-02-10 12:34] LABS: RBC Morphology Normal Morphology
[2018-02-10] MEDS: PIPERACILLIN-TAZO 3.375 GM/50 ML FROZ.PIGGY IV (13:01)
[2018-02-10 13:20] LABS: Creatine Kinase 86 U/L (55-170)
[2018-02-10 13:34] LABS: Troponin I < 0.012 ng/mL (0.01-0.034)
[2018-02-10] MEDS: VANCOMYCIN 1,250 MG in SODIUM CHLORIDE 0.9% 250 ML IV (14:04)
[2018-02-10 15:06] LABS: Add Manual Diff / Slide Review NO; Basophils Percent Auto 0.7 % (0-2); Eosinophils Percent Auto 0.3 % (2-4); Hematocrit 36.8 % (41-53); Hemoglobin 12.6 g/dL (13.5-17.5); Lymphocytes Percent Auto 4.1 % (25-40); Mean Corpuscular HGB Conc 34.3 % (30-36); Mean Corpuscular Hemoglobin 30.2 PG (26-34); Monocytes Percent Auto 0.8 % (3-14); Neutrophils Absolute Auto 46500 /uL (3000-5900); Neutrophils Percent Auto 94.1 % (50-75); Platelet Count 166 X10^3/uL (150-400); Red Blood Cell Count 4.18 X10^6/uL (4.5-5.9); Red Cell Distribution Width 14.8 % (11.6-14.8)
[2018-02-10 15:09] LABS: White Blood Cell Count 49.3 X10^3/uL (4.5-11.0)
--- NOTE | 2018-02-10 15:10 | PC.NURSE ---
critical lab result 49.3 called from Chaz in lab. Fabián notified
[2018-02-10 15:11] LABS: Lactate (Lactic Acid) 0.9 mmol/L (0.7-2.1)
[2018-02-10 16:05] LABS: Reflexed Lactate in 2 Hours Y
[2018-02-10] MEDS: SODIUM CHLORIDE 0.9% 1,000 ML 150 ML IV (16:30)
== END 2018-02-10 17:12 | disposition short-term general hospital (02) ==
PROVIDERS: Emergency Provider Emergency Medicine; PCP Family Medicine
DX: D72.829 Elevated white blood cell count, unspecified (principal); J18.9 Pneumonia, unspecified organism; C25.9 Malignant neoplasm of pancreas, unspecified
CPT/HCPCS: 36415; 36591; 71275; 80053; 81003; 82550; 83605; 83690; 84484; 85025; 87040; 93005; 93041; 96361; 96365; 96366; 96367; 96375; 99285; J2405; J2543; Q9967

== ENCOUNTER 2018-03-27 08:43 | Day surgery (SDC) | payer OTHER, SELFPAY ==
[2018-03-27] VITALS (7 sets, daily range): BP systolic 92–115; BP diastolic 60–72; PULSE 81–97; RESP 12–18; TEMP 36.2–36.6; O2SAT 97–100; BMI 55.3
[2018-03-27] MEDS: SODIUM CHLORIDE 0.9% 1,000 ML 100 ML IV (09:36)
--- NOTE | 2018-03-27 10:21 | PM.PREOP ---
Pre-operative Note Interval Note Pre-op Check: Yes History & Physical Reviewed by Physician and Yes Exam Performed Changes: No ASA Class (for procedural sedation): III
[2018-03-27] MEDS: fentaNYL 250 MCG/5 ML INJ IV (10:28)
[2018-03-27] MEDS: MIDAZOLAM 5 MG/5 ML VIAL IV (10:29)
--- NOTE | 2018-03-27 10:43 | PM.OP.ENDO ---
Operative Date/Time/Diagnoses Date of procedure: 03/27/18 Time of procedure: 10:43 Pre-op diagnosis: Indications and findings Procedure & Clinicians Study performed: Colonoscopy Indications: GI blood loss Surgeon: Redd Hood Procedure Notes Procedure in detail: After informed consent was obtained the patient was placed in left lateral decubitus position. The video colonoscope was introduced the rectum slowly advanced to the cecum. On slow withdrawal mucosa was carefully examined. Scope was removed. The patient tolerated procedure well. Blood loss none Complications none Sedation fentanyl 200 mcg Versed 8 mg IV titration Total sedation time 22 min Findings Normal colonoscopy to cecum other than scattered diverticulosis Will merely follow his clinical signs and symptoms of blood counts. If he has further bleeding he may need a pill camera knowing that some of his small bowel will be excluded. If he has further acute bleeding nuclear medicine bleeding scan should be performed.
--- NOTE | 2018-03-27 11:31 | SUR.PHASEII ---
1110 pt to opd from pacu , taking fluids and crackers , no co's
--- NOTE | 2018-03-27 11:45 | SUR.PHASEII ---
IVF completed, oral fluids given. VS close enough to baseline with patient desiring d/c home and saying he feels fine.
== END 2018-03-27 11:42 | disposition home or self-care (01) ==
PROVIDERS: PCP Family Medicine; Visit Provider Internal Medicine Gastroenterology
PROC: 0DJD8ZZ Inspection of Lower Intestinal Tract, Via Natural or Artificial Opening Endoscopic (ICD-10-PCS; CPT 45378; principal; 2018-03-27 10:00)
DX: K92.2 Gastrointestinal hemorrhage, unspecified (principal); K57.30 Diverticulosis of large intestine without perforation or abscess without bleeding; C25.9 Malignant neoplasm of pancreas, unspecified
CPT/HCPCS: 45378; J2250; J3010

== ENCOUNTER → 2018-04-03 13:55 | Outpatient (CLI) | payer OTHER, SELFPAY ==
[2018-04-03 15:02] LABS: Add Manual Diff / Slide Review NO; Basophils Percent Auto 0.2 % (0-2); Eosinophils Percent Auto 2.5 % (2-4); Hematocrit 36.3 % (41-53); Hemoglobin 12.4 g/dL (13.5-17.5); Lymphocytes Percent Auto 34.7 % (25-40); Mean Corpuscular HGB Conc 34.1 % (30-36); Mean Corpuscular Hemoglobin 30.4 PG (26-34); Neutrophils Absolute Auto 1700 /uL (3000-5900); Neutrophils Percent Auto 45.6 % (50-75); Platelet Count 172 X10^3/uL (150-400); Red Blood Cell Count 4.08 X10^6/uL (4.5-5.9); Red Cell Distribution Width 14.8 % (11.6-14.8); White Blood Cell Count 3.7 X10^3/uL (4.5-11.0)
[2018-04-03 15:03] LABS: Alanine Aminotransferase 24 IU/L (21-72); Albumin 3.8 g/dL (3.5-5.0); Albumin Globulin Ratio 1.7 (1.0-2.8); Alkaline Phosphatase 81 U/L (38-126); Aspartate Aminotransferase 34 IU/L (17-59); Bilirubin Total 0.4 mg/dL (0.2-1.3); Blood Urea Nitrogen 17 mg/dL (9-20); Calcium 8.8 mg/dL (8.4-10.2); Carbon Dioxide 32 mmol/L (22-32); Chloride 99 mmol/L (98-107); Estimated Glomerular Filt Rate > 60.0 mL/min (>60); Globulin 2.3 g/dL (1.7-4.1); Glucose 98 mg/dL (80-110); HEMOLYSIS < 15 (0-50); Magnesium 1.7 mg/dL (1.6-2.3); Potassium 3.5 mmol/L (3.4-5.1); Sodium 140 mmol/L (137-145); Total Protein 6.1 g/dL (6.3-8.2)
== END ==
PROVIDERS: PCP Family Medicine; Visit Provider Internal Medicine
DX: C25.0 Malignant neoplasm of head of pancreas (principal)
CPT/HCPCS: 36415; 80053; 83735; 85025

== ENCOUNTER → 2018-04-08 08:41 | Outpatient (CLI) | payer OTHER, SELFPAY ==
[2018-04-08 09:36] LABS: Add Manual Diff / Slide Review NO; Basophils Percent Auto 0.6 % (0-2); Eosinophils Percent Auto 4.9 % (2-4); Hematocrit 32.7 % (41-53); Hemoglobin 11.8 g/dL (13.5-17.5); Lymphocytes Percent Auto 23.9 % (25-40); Mean Corpuscular HGB Conc 35.9 % (30-36); Mean Corpuscular Hemoglobin 32.5 PG (26-34); Mean Corpuscular Volume 90.5 fL (80-100); Monocytes Percent Auto 16.8 % (3-14); Neutrophils Absolute Auto 2500 /uL (3000-5900); Neutrophils Percent Auto 53.8 % (50-75); Platelet Count 392 X10^3/uL (150-400); Red Blood Cell Count 3.62 X10^6/uL (4.5-5.9); Red Cell Distribution Width 15.3 % (11.6-14.8); White Blood Cell Count 4.7 X10^3/uL (4.5-11.0)
[2018-04-08 10:01] LABS: Alanine Aminotransferase 59 IU/L (21-72); Albumin 3.3 g/dL (3.5-5.0); Albumin Globulin Ratio 1.5 (1.0-2.8); Alkaline Phosphatase 75 U/L (38-126); Aspartate Aminotransferase 34 IU/L (17-59); BUN Creatinine Ratio 11.1 (6-22); Bilirubin Total 0.2 mg/dL (0.2-1.3); Blood Urea Nitrogen 10 mg/dL (9-20); Calcium 8.7 mg/dL (8.4-10.2); Carbon Dioxide 28 mmol/L (22-32); Chloride 106 mmol/L (98-107); Estimated Glomerular Filt Rate > 60.0 mL/min (>60); Globulin 2.2 g/dL (1.7-4.1); Glucose 94 mg/dL (80-110); HEMOLYSIS < 15 (0-50); Potassium 3.1 mmol/L (3.4-5.1); Sodium 145 mmol/L (137-145); Total Protein 5.5 g/dL (6.3-8.2)
[2018-04-11 16:32] LABS: Cancer (Carbohydrate) Ag 19-9 7 U/mL (< 34)
== END ==
PROVIDERS: PCP Family Medicine; Visit Provider Internal Medicine
DX: C25.3 Malignant neoplasm of pancreatic duct (principal); C25.0 Malignant neoplasm of head of pancreas
CPT/HCPCS: 36415; 80053; 85025; 86301

== ENCOUNTER → 2018-04-29 09:35 | Outpatient (CLI) | payer OTHER, SELFPAY ==
[2018-04-29 11:49] LABS: Alanine Aminotransferase 27 IU/L (21-72); Albumin 3.6 g/dL (3.5-5.0); Albumin Globulin Ratio 1.7 (1.0-2.8); Alkaline Phosphatase 89 U/L (38-126); Aspartate Aminotransferase 27 IU/L (17-59); Bilirubin Total 0.3 mg/dL (0.2-1.3); Blood Urea Nitrogen 15 mg/dL (9-20); Calcium 9.3 mg/dL (8.4-10.2); Carbon Dioxide 29 mmol/L (22-32); Chloride 104 mmol/L (98-107); Estimated Glomerular Filt Rate > 60.0 mL/min (>60); Globulin 2.1 g/dL (1.7-4.1); Glucose 101 mg/dL (80-110); HEMOLYSIS < 15 (0-50); Potassium 4.3 mmol/L (3.4-5.1); Sodium 145 mmol/L (137-145); Total Protein 5.7 g/dL (6.3-8.2)
== END ==
PROVIDERS: PCP Family Medicine; Visit Provider Internal Medicine
DX: C25.0 Malignant neoplasm of head of pancreas (principal)
CPT/HCPCS: 36415; 80053

== ENCOUNTER → 2018-05-02 11:16 | Outpatient (CLI) | payer OTHER, SELFPAY ==
[2018-05-02 13:11] LABS: BUN Creatinine Ratio 22.5 (6-22); Blood Urea Nitrogen 18 mg/dL (9-20); Calcium 9.1 mg/dL (8.4-10.2); Carbon Dioxide 27 mmol/L (22-32); Chloride 105 mmol/L (98-107); Estimated Glomerular Filt Rate > 60.0 mL/min (>60); Glucose 81 mg/dL (80-110); HEMOLYSIS < 15 (0-50); Sodium 144 mmol/L (137-145)
== END ==
PROVIDERS: Family Provider Family Medicine; PCP Family Medicine; Visit Provider Internal Medicine Gastroenterology
DX: D37.8 Neoplasm of uncertain behavior of other specified digestive organs (principal); Z87.19 Personal history of other diseases of the digestive system
CPT/HCPCS: 36415; 80048

== ENCOUNTER → 2018-06-05 07:04 | Outpatient (CLI) | payer OTHER, SELFPAY ==
[2018-06-05 08:03] LABS: Alanine Aminotransferase 36 IU/L (21-72); Albumin 3.6 g/dL (3.5-5.0); Albumin Globulin Ratio 1.5 (1.0-2.8); Alkaline Phosphatase 64 U/L (38-126); Aspartate Aminotransferase 26 IU/L (17-59); Bilirubin Total 0.3 mg/dL (0.2-1.3); Blood Urea Nitrogen 16 mg/dL (9-20); Carbon Dioxide 30 mmol/L (22-32); Chloride 103 mmol/L (98-107); Estimated Glomerular Filt Rate > 60.0 mL/min (>60); Globulin 2.4 g/dL (1.7-4.1); Glucose 87 mg/dL (80-110); HEMOLYSIS < 15 (0-50); Potassium 4.3 mmol/L (3.4-5.1); Sodium 140 mmol/L (137-145)
[2018-06-06 18:41] LABS: Cancer (Carbohydrate) Ag 19-9 13 U/mL (< 34)
== END ==
PROVIDERS: PCP Family Medicine; Visit Provider Internal Medicine
DX: C25.3 Malignant neoplasm of pancreatic duct (principal); C25.0 Malignant neoplasm of head of pancreas
CPT/HCPCS: 36415; 80053; 86301

== ENCOUNTER 2018-10-03 07:08 | Inpatient (IN) | payer OTHER, SELFPAY ==
[2018-10-03] VITALS (40 sets, daily range): BP systolic 81–132; BP diastolic 35–78; PULSE 76–118; RESP 11–23; TEMP 36.7–39.6; O2SAT 92–99; BMI 23.1; BMI 21.8
--- NOTE | 2018-10-03 07:13 | ED.ANXIETY ---
HPI - Anxiety General Chief Complaint: Anxiety Stated Complaint: Anxiety Time Seen by Provider: 10/03/18 07:12 Source: patient, EMS and old records reviewed Mode of arrival: EMS Limitations: no limitations History of Present Illness HPI narrative: Patient is a 62-year-old male who presents with shaking. He was seen evaluated by his psychiatrist yesterday due to limit has an irregular heart rate. He has scheduled EKG for today at 10:00 a.m. with his PCP. However he woke up this morning shaking uncontrollably. He denies any chest pain shortness of breath heart palpitations or dizzy. He has a history of pancreatic cancer. Chemotherapy in June, and he had clear scans in July. Today he is also complaining a headache. He says it has been lasting for last 5 days. He denies any nausea or weakness. He does get headaches this seems to be pretty typical for him. He denies any neck pain no rash no visual changes. MD complaint: heart racing Related Data Home Medications Medication Instructions Recorded Confirmed psyllium husk (aspartame) 1 ea PO DIRECTED #0 06/22/16 10/03/18 [Metamucil Fiber Singles] bupropion HCl 300 mg PO DAILY #0 11/07/16 10/03/18 adapalene [Differin] 1 sunny TOPICAL BEDTIME #0 06/02/17 10/03/18 docusate sodium 2 cap PO DAILY #60 cap 06/29/17 10/03/18 clonazepam 1 mg tablet 3 mg PO BEDTIME tab 01/01/18 10/03/18 sulfacetamide sodium 10 % topical 1 applictn TOP BID 01/01/18 10/03/18 cleanser, gel ascorbic acid (vitamin C) [Vitamin 500 mg PO DAILY 02/01/18 10/03/18 C] azelaic acid [Finacea] 1 applic TOPICAL BID 02/01/18 10/03/18 benzoyl peroxide [Panoxyl] 1 applic TOPICAL QAM 02/01/18 10/03/18 cholecalciferol (vitamin D3) 4,000 - 6,000 unit PO DAILY 02/01/18 10/03/18 [Vitamin D3] coenzyme Q10 [CoQ-10] 300 mg PO DAILY 02/01/18 10/03/18 melatonin 10 mg PO BEDTIME 02/01/18 10/03/18 minoxidil 1 ml TOPICAL DIRECTED 02/01/18 10/03/18 tamsulosin [Flomax] 0.8 mg PO BEDTIME 02/01/18 10/03/18 Ocuvite 1 cap PO DAILY 10/03/18 10/03/18 aluminum chloride in alcohol 1 applic TOPICAL DAILY 10/03/18 10/03/18 [Xerac AC] carbidopa-levodopa 1 tab PO TID 10/03/18 10/03/18 finasteride 5 mg PO DAILY 10/03/18 10/03/18 fluoxetine 60 mg PO DAILY 10/03/18 10/03/18 lamotrigine 300 mg PO DAILY 10/03/18 10/03/18 [id number] [Creon] 1 cap PO TID 10/03/18 10/03/18 montelukast 10 mg PO DAILY 10/03/18 10/03/18 quetiapine 150 mg PO BEDTIME 10/03/18 10/03/18 Previous Rx's Medication Instructions Recorded dapsone 5 % topical gel 1 applictn TOP BID #60 gram 09/18/17 Allergies Allergy/AdvReac Type Severity Reaction Status Date / Time promethazine [From PHENERGAN] AdvReac Severe tardive Verified 05/19/18 09:34 dyskinesia like effeect Review of Systems Review of Systems ROS Unobtainable: All systems reviewed & are unremarkable except as noted in HPI and below Constitutional Reports chills, Denies fever(s), Reports headache(s), Denies lethargy and Denies weakness ENT Ears, Nose, Mouth, and Throat: Reports headache(s) Cardiovascular Reports as per HPI, Denies syncope, Reports rapid heart rate (Sinus tachycardia on monitor), Denies lightheadedness, Denies palpitations and Denies dyspnea Respiratory Denies dyspnea Gastrointestinal Gastrointestinal: Denies abdominal pain, Denies change in bowel habits, Denies diarrhea, Denies nausea and Denies vomiting Genitourinary Denies hematuria, Denies flank pain, Denies urinary incontinence and Denies urinary urgency Musculoskeletal Denies back pain, Denies muscle weakness, Denies numbness and Denies tingling Integumentary/Breasts Denies pruritus, Denies erythema, Denies rash and Denies wounds Neurologic Denies syncope, Reports headache(s), Denies numbness, Denies tingling and Denies weakness Endocrine Denies palpitations [facility] Medical History BPH (benign prostatic hyperplasia) (Chronic) Depression (Chronic) Tremor (Chronic) Tourette's syndrome (Chronic) Fatigue (Chronic) Pancreatic cancer (Suspected) Epigastric pain (Chronic) Uncomplicated opioid dependence (Chronic) Idiopathic pancreatitis (Chronic) History of Lyme disease (Chronic 07/08/15) Back pain (Chronic) Surgical History History of partial pancreatectomy (Chronic) S/P ERCP (Chronic) Family History Sister Carmens Social History marital status: unmarried,single household members: none lives independently: Yes Smoking Status: Never smoker Family History Sister Carmelita's Social History marital status: unmarried,single household members: none lives independently: Yes Smoking Status: Never smoker alcohol intake: never Comment: PCP. Dr. Phillips in [place] Exam Initial Vital Signs Initial Vital Signs: Vital Signs Temperature 103.2 F H 10/03/18 07:08 Pulse Rate 115 H 10/03/18 07:08 Respiratory Rate 13 10/03/18 07:08 Blood Pressure 108/53 L 10/03/18 07:08 Pulse Oximetry 96 10/03/18 07:08 GENERAL: Alert well-appearing male warm to touch HEENT: Head atraumatic,EOMI, pupils reactive, face symmetric, no meningeal signs CARDIOVASCULAR: tachycardic regular RESPIRATORY: Breath sounds equal bilaterally, no wheezes rales or rhonchi. ABDOMEN: Soft, nontender. Normoactive bowel sounds all 4 quadrants. No guarding or rebound. EXTREMITIES: Normal range of motion, no clubbing or edema. Neurovascularly intact NEUROLOGICAL: Alert and oriented x4.Normal gait and speech. Cranial nerves II through XII grossly intact. SKIN: Warm, dry, no laceration, no petechiae, no rashes or lesions. Course Orders Ordered: ED Orders 10/03/18 07:11 EKG-12 Lead Routine 10/03/18 07:30 Complete Blood Count AUTO DIFF Stat Comprehensive Metabolic Panel Stat Lactate (Lactic Acid) Stat Procalcitonin Stat Prolactin Stat 10/03/18 07:41 XR chest 2V Stat 10/03/18 07:58 Urinalysis and Microscopic Stat Urine Culture Stat 10/03/18 08:10 CT head/brain wo con Stat 10/03/18 08:16 Blood Culture Stat 10/03/18 10:41 Consult to PICC Line RN Stat 10/03/18 11:01 CT abdomen pelvis w con Stat 10/03/18 12:27 XR chest for PICC 1V Stat 10/03/18 13:35 Education, smoking cessation ONGOING Acetaminophen (Tylenol) 650 mg PO Q6HR PRN PRN Reason: As Needed for Fever/Mild Pain Bisacodyl (Dulcolax) 10 mg PO DAILY PRN PRN Reason: Constipation Calcium Carbonate (Tums) 1,000 mg PO Q4HR PRN PRN Reason: Dyspepsia Heparin Sodium (Porcine) (Heparin) 5,000 unit SUBCUT BID MICHELA Sodium Chloride (Normal Saline 0.9%) 1,000 mls @ 250 mls/hr IV CONT MICHELA Last Infusion: 10/03/18 14:25 Dose: 250 mls/hr Admin: 10/03/18 13:07 Dose: 250 mls/hr Sodium Chloride (Normal Saline 0.9%) 1,000 mls @ 350 mls/hr IV CONT MICHELA Last Infusion: 10/03/18 13:17 Dose: 0 mls/hr Admin: 10/03/18 10:15 Dose: 350 mls/hr Sodium Chloride (Normal Saline 0.9%) 1,000 mls @ 100 mls/hr IV CONT MICHELA Last Admin: 10/03/18 14:55 Dose: Not Given Magnesium Hydroxide (Milk Of Magnesia) 30 ml PO DAILY PRN PRN Reason: Constipation Ondansetron HCl (Zofran) 4 mg IV Q8HR PRN PRN Reason: Nausea And Vomiting Discontinued Medications Acetaminophen (Tylenol) 975 mg PO NOW ONE Stop: 10/03/18 09:05 Last Admin: 10/03/18 09:10 Dose: 975 mg Sodium Chloride (Normal Saline 0.9%) 1,000 mls @ 1,000 mls/hr IV BOLUS ONE Stop: 10/03/18 08:18 Last Infusion: 10/03/18 09:11 Dose: 0 mls/hr Admin: 10/03/18 08:07 Dose: 1,000 mls/hr Sodium Chloride (Normal Saline 0.9%) 1,000 mls @ 1,000 mls/hr IV BOLUS ONE Stop: 10/03/18 09:42 Last Infusion: 10/03/18 10:15 Dose: 0 mls/hr Admin: 10/03/18 09:09 Dose: 1,000 mls/hr Piperacillin/Tazobactam/Dextrose (Zosyn) 3.375 gm in 50 mls @ 100 mls/hr IV NOW ONE Stop: 10/03/18 10:40 Last Infusion: 10/03/18 12:54 Dose: 0 mls/hr Admin: 10/03/18 12:06 Dose: 100 mls/hr Vancomycin HCl 1,250 mg/ (Sodium Chloride) 250 mls @ 250 mls/hr IV NOW ONE Stop: 10/03/18 10:12 Last Infusion: 10/03/18 12:02 Dose: 0 mls/hr Admin: 10/03/18 10:27 Dose: 250 mls/hr Ketorolac Tromethamine (Toradol) 30 mg IV NOW ONE Stop: 10/03/18 07:20 Last Admin: 10/03/18 08:08 Dose: 30 mg Consultations Consultation #1: Dr. Baird request CT ab for fever source and procalcitonin. Time: 10:58 Consultation #2: Dr. Baird updated on patient's CT results and current status. Blood pressure has improved to 98/56 heart rate has improved to 91. The patient overall looks better. Time: 13:37 Vital Signs - 8 hr 10/03/18 07:45 10/03/18 08:00 10/03/18 08:08 Temperature 103.2 F H Pulse Rate 116 H 115 H Respiratory Rate 13 Blood Pressure Blood Pressure [Left Arm] 98/59 L 101/64 Pulse Oximetry 96 10/03/18 08:15 10/03/18 08:30 10/03/18 09:00 Temperature Pulse Rate 118 H 112 H 113 H Respiratory Rate 15 16 Blood Pressure Blood Pressure [Left Arm] 101/64 95/66 89/35 L Pulse Oximetry 96 94 10/03/18 09:10 10/03/18 09:15 10/03/18 09:16 Temperature 101.5 F H 101.5 F H Pulse Rate 112 H 114 H Respiratory Rate 18 23 Blood Pressure Blood Pressure [Left Arm] 85/53 L 89/53 L Pulse Oximetry 93 96 10/03/18 09:19 10/03/18 09:23 10/03/18 09:55 Temperature Pulse Rate 113 H 110 H 107 H Respiratory Rate 18 17 12 Blood Pressure Blood Pressure [Left Arm] 85/53 L 91/50 L 93/50 L Pulse Oximetry 94 95 10/03/18 10:00 10/03/18 10:15 10/03/18 10:20 Temperature 101.2 F H 101.2 F H Pulse Rate 107 H 107 H Respiratory Rate 13 12 Blood Pressure Blood Pressure [Left Arm] 93/43 L 81/46 L Pulse Oximetry 94 10/03/18 10:32 10/03/18 11:00 10/03/18 11:21 Temperature Pulse Rate 105 H 103 H 102 H Respiratory Rate 17 20 17 Blood Pressure Blood Pressure [Left Arm] 87/45 L 87/48 L 87/47 L Pulse Oximetry 92 94 96 10/03/18 11:49 10/03/18 12:00 10/03/18 12:05 Temperature Pulse Rate 105 H 95 H 101 H Respiratory Rate 11 L Blood Pressure Blood Pressure [Left Arm] 89/54 L 94/50 L 94/50 L Pulse Oximetry 95 10/03/18 12:15 10/03/18 12:30 10/03/18 12:45 Temperature Pulse Rate 97 H 94 H 93 H Respiratory Rate 13 15 12 Blood Pressure Blood Pressure [Left Arm] 83/48 L 84/38 L 82/45 L Pulse Oximetry 97 97 10/03/18 13:13 10/03/18 13:38 10/03/18 14:07 Temperature 98.6 F Pulse Rate 90 83 84 Respiratory Rate 12 11 L 16 Blood Pressure 93/53 L Blood Pressure [Left Arm] 98/64 91/55 L Pulse Oximetry 97 98 97 10/03/18 14:34 Temperature 98.9 F Pulse Rate 76 Respiratory Rate 12 Blood Pressure 119/57 L Blood Pressure [Left Arm] Pulse Oximetry 97 MDM - Anxiety Lab Data Attestation: I reviewed the patient's lab results. Result diagrams: 10/03/18 07:30 10/03/18 07:30 Lab Results 10/03/18 10/03/18 10/03/18 Range/Units 07:30 07:30 07:30 WBC 11.5 H (4.5-11.0) X10^3/uL RBC 4.96 (4.5-5.9) X10^6/uL Hgb 14.6 (13.5-17.5) g/dL Hct 44.0 (41-53) % MCV 88.7 (80-100) fL MCH 29.5 (26-34) PG MCHC 33.3 (30-36) % RDW 13.1 (11.6-14.8) % Plt Count 179 (150-400) X10^3/uL Neut % (Auto) 96.2 H (50-75) % Lymph % (Auto) 2.3 L (25-40) % Josephine % (Auto) 1.2 L (3-14) % Eos % (Auto) 0.1 L (2-4) % Baso % (Auto) 0.2 (0-2) % Neut # (Auto) 87870 H (3937-1884) /uL Lymph # (Auto) 300 L (4262-6188) /uL Josephine # (Auto) 100 (0-900) /uL Eos # (Auto) 0 (0-450) /uL Baso # (Auto) 0 (0-100) /uL Sodium 140 (137-145) mmol/L Potassium 3.8 (3.4-5.1) mmol/L Chloride 104 (98-107) mmol/L Carbon Dioxide 28 (22-32) mmol/L BUN 29 H (9-20) mg/dL Creatinine 1.00 (0.66-1.25) mg/dL Estimated GFR > 60.0 (>60) mL/min BUN/Creatinine Ratio 29.0 H (6-22) Glucose 97 (80-110) mg/dL Lactate 2.2 H (0.7-2.1) mmol/L Calcium 9.6 (8.4-10.2) mg/dL Total Bilirubin 0.4 (0.2-1.3) mg/dL AST 30 (17-59) IU/L ALT 28 (21-72) IU/L Alkaline Phosphatase 84 (38-126) U/L Total Protein 6.8 (6.3-8.2) g/dL Albumin 4.2 (3.5-5.0) g/dL Globulin 2.6 (1.7-4.1) g/dL Albumin/Globulin Ratio 1.6 (1.0-2.8) Procalcitonin (<0.5) ng/mL Prolactin (3.7-17.9) ng/mL Urine Color Urine Appearance Urine pH (4.5-8.0) Ur Specific Buford (1.000-1.035) Urine Protein (Negative) Urine Glucose (UA) (Negative) g/dL Urine Ketones (NEGATIVE) Urine Occult Blood (Negative) Urine Nitrate (Negative) Urine Bilirubin (NEGATIVE) Urine Urobilinogen (0.2) E.U./dL Ur Leukocyte Esterase (NEGATIVE) Urine RBC (0-5/HPF) Urine WBC (0-5/HPF) Urine Bacteria (None) Ur Culture Indicated? 10/03/18 10/03/18 10/03/18 Range/Units 07:30 07:30 07:58 WBC (4.5-11.0) X10^3/uL RBC (4.5-5.9) X10^6/uL Hgb (13.5-17.5) g/dL Hct (41-53) % MCV (80-100) fL MCH (26-34) PG MCHC (30-36) % RDW (11.6-14.8) % Plt Count (150-400) X10^3/uL Neut % (Auto) (50-75) % Lymph % (Auto) (25-40) % Josephine % (Auto) (3-14) % Eos % (Auto) (2-4) % Baso % (Auto) (0-2) % Neut # (Auto) (5296-2623) /uL Lymph # (Auto) (1865-7117) /uL Josephine # (Auto) (0-900) /uL Eos # (Auto) (0-450) /uL Baso # (Auto) (0-100) /uL Sodium (137-145) mmol/L Potassium (3.4-5.1) mmol/L Chloride (98-107) mmol/L Carbon Dioxide (22-32) mmol/L BUN (9-20) mg/dL Creatinine (0.66-1.25) mg/dL Estimated GFR (>60) mL/min BUN/Creatinine Ratio (6-22) Glucose (80-110) mg/dL Lactate (0.7-2.1) mmol/L Calcium (8.4-10.2) mg/dL Total Bilirubin (0.2-1.3) mg/dL AST (17-59) IU/L ALT (21-72) IU/L Alkaline Phosphatase (38-126) U/L Total Protein (6.3-8.2) g/dL Albumin (3.5-5.0) g/dL Globulin (1.7-4.1) g/dL Albumin/Globulin Ratio (1.0-2.8) Procalcitonin 2.25 H (<0.5) ng/mL Prolactin 29.8 H (3.7-17.9) ng/mL Urine Color Yellow Urine Appearance Clear Urine pH 7.0 (4.5-8.0) Ur Specific Buford 1.015 (1.000-1.035) Urine Protein Negative (Negative) Urine Glucose (UA) Negative (Negative) g/dL Urine Ketones Negative (NEGATIVE) Urine Occult Blood Negative (Negative) Urine Nitrate Negative (Negative) Urine Bilirubin Negative (NEGATIVE) Urine Urobilinogen 0.2 (0.2) E.U./dL Ur Leukocyte Esterase Negative (NEGATIVE) Urine RBC 0-1/hpf (0-5/HPF) Urine WBC 0-1/hpf (0-5/HPF) Urine Bacteria Occasional (0-1) (None) Ur Culture Indicated? Cult not indicated 10/03/18 Range/Units 10:10 WBC (4.5-11.0) X10^3/uL RBC (4.5-5.9) X10^6/uL Hgb (13.5-17.5) g/dL Hct (41-53) % MCV (80-100) fL MCH (26-34) PG MCHC (30-36) % RDW (11.6-14.8) % Plt Count (150-400) X10^3/uL Neut % (Auto) (50-75) % Lymph % (Auto) (25-40) % Josephine % (Auto) (3-14) % Eos % (Auto) (2-4) % Baso % (Auto) (0-2) % Neut # (Auto) (9423-9353) /uL Lymph # (Auto) (8198-4952) /uL Josephine # (Auto) (0-900) /uL Eos # (Auto) (0-450) /uL Baso # (Auto) (0-100) /uL Sodium (137-145) mmol/L Potassium (3.4-5.1) mmol/L Chloride (98-107) mmol/L Carbon Dioxide (22-32) mmol/L BUN (9-20) mg/dL Creatinine (0.66-1.25) mg/dL Estimated GFR (>60) mL/min BUN/Creatinine Ratio (6-22) Glucose (80-110) mg/dL Lactate 0.9 (0.7-2.1) mmol/L Calcium (8.4-10.2) mg/dL Total Bilirubin (0.2-1.3) mg/dL AST (17-59) IU/L ALT (21-72) IU/L Alkaline Phosphatase (38-126) U/L Total Protein (6.3-8.2) g/dL Albumin (3.5-5.0) g/dL Globulin (1.7-4.1) g/dL Albumin/Globulin Ratio (1.0-2.8) Procalcitonin (<0.5) ng/mL Prolactin (3.7-17.9) ng/mL Urine Color Urine Appearance Urine pH (4.5-8.0) Ur Specific Buford (1.000-1.035) Urine Protein (Negative) Urine Glucose (UA) (Negative) g/dL Urine Ketones (NEGATIVE) Urine Occult Blood (Negative) Urine Nitrate (Negative) Urine Bilirubin (NEGATIVE) Urine Urobilinogen (0.2) E.U./dL Ur Leukocyte Esterase (NEGATIVE) Urine RBC (0-5/HPF) Urine WBC (0-5/HPF) Urine Bacteria (None) Ur Culture Indicated? Urine Dip Bedside Urine Glucose Negative Bedside Urine Bilirubin - Negative Bedside Urine Ketone - Negative Urine Specific Buford 1.015 Bedside Urine Occult Blood - Negative Bedside Urine pH 7 Bedside Urine Protein - Negative Bedside Urine Urobilinogen - Negative Bedside Urine Nitrite - Negative Bedside Urine Leukocytes ++ 125 Esterase Imaging Data Chest x-ray: Radiologist's impression: PROCEDURE: XR CHEST 2V INDICATIONS: FEVER TECHNIQUE: 2 views of the chest were acquired. COMPARISON: [facility], , CHEST 1 VIEW, 03/08/2016, 10:20. FINDINGS: Surgical changes and devices: None. Lungs and pleura: Lungs are clear considering mildly reduced inspiratory volume. No pleural effusions or pneumothorax. Mediastinum: Mediastinal contours are normal. Heart size is normal. Bones and chest wall: No suspicious bony abnormalities. Soft tissues appear unremarkable. IMPRESSION: Normal for age, source of current failure symptoms is not seen. Dictated by: Vitaly José M.D. on 10/03/2018 at 8:16 CT scan - head: Radiologist's impression: PROCEDURE: CT HEAD/BRAIN WO CON INDICATIONS: headache 5 dayswith pancreatic cancer TECHNIQUE: Noncontrast 4.5 mm thick angled axial sections acquired from the foramen magnum to the vertex, with coronal and sagittal reformats. For radiation dose reduction, the following was used: automated exposure control, adjustment of mA and/or kV according to patient size. COMPARISON: None. FINDINGS: Image quality: Excellent. CSF spaces: Basal cisterns are patent. No extra-axial fluid collections. Ventricles are normal in size and shape. Brain: No midline shift. No intracranial masses or hemorrhage. Milner-white matter interface is normal. Skull and face: Calvarium and visualized facial bones are intact, without suspicious lesions. Sinuses: Visualized sinuses and mastoids are clear. IMPRESSION: Negative head CT. No evidence of acute stroke, hemorrhage, or mass. Dictated by: Jacob Ruiz M.D. on 10/03/2018 at 8:10 ECG Data Attestation: I personally reviewed and interpreted this ECG as follows: Prior ECG tracings: available for review Interpretation: Sinus tachycardia rate [address] changes MDM Narrative Medical decision making narrative: The patient initially febrile and tachycardic. He is started on IV fluids and fever control. His blood pressure continues to drop into the 80s -90's. More aggressive IV fluid hydration. He overall has no symptoms except for fever. He has no abdominal pain vomiting diarrhea. No cough or chest pain no painful or frequent urination. Heart rate does improve with fluids and fever control. However blood pressure remains low. PICC line is placed empirically for possible vasopressors. He has had 3 L of fluid and still hypotensive from 9:00 a.m. until 1245pm. Normal blood pressure for him is 105-120 based on the patient states and previous blood pressures. Patient is empirically started on antibiotics Zosyn and vancomycin. He does have an elevated procalcitonin at 2.25. I have requested urine to be cultured, based on leukocytes on dip in the ED. Await blood cultures and urine culture After 4th L of IV fluids blood pressure improved into the 90s. No source of fever found. He initially had headache which is now improved with Toradol. He has no neck pain or signs of meningitis. Critical Care Time Critical Care Time: Yes Total Critical Care Time: 30 Attestation: The high probability of a clinically significant, sudden or life threatening deterioration of the [cardiovascular] system(s) required my full and direct attention, intervention and personal management. The aggregate critical care time was [45] minutes. This time is in addition to time spent performing reported procedures but includes the following: [x] Data Review and interpretation [x] Patient assessment and monitoring of vital signs [x] Documentation [x] Medication orders and management Discharge Plan Departure Patient Disposition: Admitted as Observation Clinical Impression: Severe sepsis Discharge Date/Time: 10/03/18 14:09 Interventions: ED Discharge Assessment Last Done: 10/03/18 14:07 Admit Date/Time: 10/03/18 13:45 Admit Provider: Mary Baird
--- NOTE | 2018-10-03 07:41 | DI.RAD.S_ITS ---
PROCEDURE: XR CHEST 2V INDICATIONS: FEVER TECHNIQUE: 2 views of the chest were acquired. COMPARISON: [facility], , CHEST 1 VIEW, 03/08/2016, 10:20. FINDINGS: Surgical changes and devices: None. Lungs and pleura: Lungs are clear considering mildly reduced inspiratory volume. No pleural effusions or pneumothorax. Mediastinum: Mediastinal contours are normal. Heart size is normal. Bones and chest wall: No suspicious bony abnormalities. Soft tissues appear unremarkable. IMPRESSION: Normal for age, source of current failure symptoms is not seen. Dictated by: Vitaly José M.D. on 10/03/2018 at 8:16 Approved by: Vitaly José M.D. on 10/03/2018 at 8:17
[2018-10-03 08:01] LABS: Add Manual Diff / Slide Review NO; Basophils Absolute Auto 0 /uL (0-100); Basophils Percent Auto 0.2 % (0-2); Eosinophils Absolute Auto 0 /uL (0-450); Eosinophils Percent Auto 0.1 % (2-4); Hemoglobin 14.6 g/dL (13.5-17.5); Lymphocytes Absolute Auto 300 /uL (1100-4500); Lymphocytes Percent Auto 2.3 % (25-40); Mean Corpuscular HGB Conc 33.3 % (30-36); Mean Corpuscular Hemoglobin 29.5 PG (26-34); Mean Corpuscular Volume 88.7 fL (80-100); Monocytes Absolute Auto 100 /uL (0-900); Monocytes Percent Auto 1.2 % (3-14); Neutrophils Absolute Auto 11100 /uL (1500-7000); Neutrophils Percent Auto 96.2 % (50-75); Platelet Count 179 X10^3/uL (150-400); Red Blood Cell Count 4.96 X10^6/uL (4.5-5.9); Red Cell Distribution Width 13.1 % (11.6-14.8); White Blood Cell Count 11.5 X10^3/uL (4.5-11.0)
[2018-10-03] MEDS: SODIUM CHLORIDE 0.9% 1,000 ML 1000 ML IV ×2 (08:07→09:09)
[2018-10-03] MEDS: KETOROLAC 60 MG/2 ML VIAL 30 MG IV (08:08)
[2018-10-03 08:09] LABS: Lactate (Lactic Acid) 2.2 mmol/L (0.7-2.1)
[2018-10-03 08:10] LABS: Alanine Aminotransferase 28 IU/L (21-72); Albumin 4.2 g/dL (3.5-5.0); Albumin Globulin Ratio 1.6 (1.0-2.8); Alkaline Phosphatase 84 U/L (38-126); Aspartate Aminotransferase 30 IU/L (17-59); Bilirubin Total 0.4 mg/dL (0.2-1.3); Blood Urea Nitrogen 29 mg/dL (9-20); Calcium 9.6 mg/dL (8.4-10.2); Carbon Dioxide 28 mmol/L (22-32); Chloride 104 mmol/L (98-107); Estimated Glomerular Filt Rate > 60.0 mL/min (>60); Globulin 2.6 g/dL (1.7-4.1); Glucose 97 mg/dL (80-110); HEMOLYSIS < 15 (0-50); Potassium 3.8 mmol/L (3.4-5.1); Sodium 140 mmol/L (137-145); Total Protein 6.8 g/dL (6.3-8.2)
--- NOTE | 2018-10-03 08:10 | DI.CT.S_ITS ---
PROCEDURE: CT HEAD/BRAIN WO CON INDICATIONS: headache 5 dayswith pancreatic cancer TECHNIQUE: Noncontrast 4.5 mm thick angled axial sections acquired from the foramen magnum to the vertex, with coronal and sagittal reformats. For radiation dose reduction, the following was used: automated exposure control, adjustment of mA and/or kV according to patient size. COMPARISON: None. FINDINGS: Image quality: Excellent. CSF spaces: Basal cisterns are patent. No extra-axial fluid collections. Ventricles are normal in size and shape. Brain: No midline shift. No intracranial masses or hemorrhage. Milner-white matter interface is normal. Skull and face: Calvarium and visualized facial bones are intact, without suspicious lesions. Sinuses: Visualized sinuses and mastoids are clear. IMPRESSION: Negative head CT. No evidence of acute stroke, hemorrhage, or mass. Dictated by: Jacob Ruiz M.D. on 10/03/2018 at 8:10 Approved by: Jacob Ruiz M.D. on 10/03/2018 at 8:11
[2018-10-03 08:30] LABS: Appearance Urine UA CLEAR; Bilirubin Urine UA NEGATIVE (NEGATIVE); Color Urine UA YELLOW; Glucose Urine UA NEGATIVE (Negative); Ketones Urine UA NEGATIVE (NEGATIVE); Leukocyte Esterase Urine UA NEGATIVE (NEGATIVE); Nitrite Urine UA NEGATIVE (Negative); Occult Blood Urine UA NEGATIVE (Negative); Protein Urine UA NEGATIVE (Negative); Specific Gravity Urine UA 1.015 (1.000-1.035); Urobilinogen Urine UA 0.2 E.U./dL (0.2)
[2018-10-03 08:41] LABS: Bacteria Urine Occasional (0-1); Culture Indicated Urine Cult Not Indicated; RBC Urine 0-1/HPF (0-5/HPF); WBC Urine 0-1/HPF (0-5/HPF)
--- NOTE | 2018-10-03 08:45 | PC.NURSE ---
Pt woke up at usual time of 0430, 15 min later started shaking all over whole body, reports having intermittent headaches that are generalized and throbbing, but for the last three weeks they have been more frequent and have occurred with palpitations. Pt reports seeing psychiatrist yesterday who told the patient they had an irregular heart rhythm and should have it looked at. Pt reports no nausea or vomiting. Pt reported rapid breathing upon arrival, but is not anymore. Patient does not have a cough and reports normal urinatioon and bowel movements with out pain or urgency. Pt has hx of pancreatic cancer last scan in july. 0850 patient laying in room reports tordol helped with headache and is at a 2 on the pain scale, Pt is no longer shaking. Patient is sinus tachy.
[2018-10-03] MEDS: ACETAMINOPHEN 325 MG TABLET 975 MG PO (09:10)
--- NOTE | 2018-10-03 09:24 | PC.NURSE ---
still has minimal headache, denies visual changes, denies nausea, denies dizziness, shaking feeling is better. remain alert , skin warm dry pink, moving all extremities. no coughing or nausea noted.
[2018-10-03 09:55] LABS: Prolactin 29.8 ng/mL (3.7-17.9)
[2018-10-03 09:56] LABS: Reflexed Lactate in 2 Hours Y
[2018-10-03] MEDS: SODIUM CHLORIDE 0.9% 1,000 ML 350 ML IV (10:15)
[2018-10-03] MEDS: VANCOMYCIN 1,250 MG in SODIUM CHLORIDE 0.9% 250 ML IV (10:27)
[2018-10-03 10:38] LABS: Lactate 2HR (Lactic Acid Rflx) 0.9 mmol/L (0.7-2.1)
--- NOTE | 2018-10-03 11:01 | DI.CT.S_ITS ---
PROCEDURE: CT ABDOMEN PELVIS W CON INDICATIONS: fever TECHNIQUE: After the administration of intravenous contrast, 5 mm thick sections acquired from the diaphragm to the symphysis. 5 mm coronal and sagittal reformats were acquired. For radiation dose reduction, the following was used: automated exposure control, adjustment of mA and/or kV according to patient size. COMPARISON: [facility], US, ABDOMEN COMPLETE, 06/02/2017, 11:03. [facility], MR, MR ABDOMEN WO/W CON, 10/03/2017, 9:18. [facility], MR, L-SPINE WITHOUT CONTRAST, 08/09/2015, 14:19. [facility], MR, T-SPINE WITHOUT CONTRAST, 02/19/2014, 14:29. [facility], US, ABDOMEN COMPLETE, 03/28/2013, 9:13. [facility], CT, KIDNEY/ URETER/BLADDER, 12/06/2011, 14:07. [facility], CT, ABDOMEN/PELVIS WITH CONTRAST, 06/02/2017, 10:45. FINDINGS: Image quality: Excellent. ABDOMEN: Lung bases: Lung bases are clear. Heart size is normal. Solid organs: Liver is stable in size and enhancement, with a right posterior hepatic segment subcapsular presumed hemangioma previously documented at different phases of contrast enhancement over time with prior CT scan. Gallbladder has been resected and postsurgical changes of Whipple procedure in this patient with prior pancreatic carcinoma is stable over time. Biliary system is non dilated. Pancreas enhances normally. Spleen is normal in size and enhancement. No adrenal nodules. Kidneys demonstrate normal size and enhancement, a bilateral extrarenal pelvis morphology. Peritoneum and bowel: Bowel loops demonstrate normal wall thickness and caliber. No free fluid or air. Nodes and vessels: No retroperitoneal or mesenteric adenopathy by size criteria. Aorta and inferior vena cava are normal in size. Miscellaneous: No ventral hernias. PELVIS: Genitourinary: Bladder wall thickness is normal. Miscellaneous: No inguinal hernias or adenopathy. Bones: No suspicious bony lesions. No vertebral body compression fractures. IMPRESSION: Expected postsurgical changes after Whipple procedure, stable appearance of a subcapsular right posterior hepatic segment hepatic hemangioma. No evidence of metastatic disease found. A source of reported new fever is not seen. Dictated by: Vitaly José M.D. on 10/03/2018 at 12:27 Approved by: Vitaly José M.D. on 10/03/2018 at 12:36
[2018-10-03 11:27] LABS: Procalcitonin 2.25 ng/mL (<0.5)
--- NOTE | 2018-10-03 11:50 | PC.NURSE ---
abd ct per dr moreno.
[2018-10-03] MEDS: PIPERACILLIN-TAZO 3.375 GM/50 ML FROZ.PIGGY IV (12:06)
--- NOTE | 2018-10-03 12:27 | DI.RAD.S_ITS ---
PROCEDURE: XR CHEST FOR PICC 1V INDICATIONS: picc line placement [facility], 10:20. FINDINGS: PICC was placed by the intravenous therapy team from the left side. Fluoroscopic spot film demonstrates tip of PICC in the distal SVC. IMPRESSION: Tip of PICC lies within the distal SVC. Dictated by: Vitaly José M.D. on 10/03/2018 at 12:48 Approved by: Vitaly José M.D. on 10/03/2018 at 12:48
[2018-10-03] MEDS: SODIUM CHLORIDE 0.9% 1,000 ML 250 ML IV (13:07)
--- NOTE | 2018-10-03 15:28 | PM.HP.1 ---
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 The patient reports that he woke up this morning shaking uncontrollably. He took a shower and a bath which did not help then decided to call 911. He was at his psychiatrist's office yesterday who mentions that he may have had an abnormal heart rhythm and plan to have an EKG today at his PCPs office. He reports his blood pressure was normal at that time. He has chronic headaches which have not been more severe than usual. He has had no other symptoms. He denies lightheadedness, dizziness, presyncope or syncope, vision changes, rhinitis, nasal congestion, sore throat, cough, wheezing, chest pain, shortness of breath, skin rash, abdominal pain, joint pain, nausea, vomiting, dysuria, urinary urgency, urinary frequency, or diarrhea. He endorses chronic constipation for which he takes laxatives. He occasionally has a sharp right-sided pain with bending over and is not always present while bending over. He endorses chronic right-sided ear pain when he tugs on his ear. He has had no sick contacts and has not felt ill in the last several days preceding fever and does not feel particularly ill today since rigors have resolved. He has noticed watery eyes. In the ED, the patient was found to be febrile at 103.2, leukocytosis of 11.5 and requested procalcitonin of 2.25. Urinalysis performed had no abnormalities and chest x-ray did not demonstrate any acute cardiopulmonary process. Requested CT abdomen and pelvis which demonstrated postsurgical changes from previous Whipple without metastases, any acute abnormalities or source for fever. Patient does not have nuchal rigidity on exam. He has mild photophobia related to his headache. CT brain without contrast did not demonstrate any acute intracranial process such as hemorrhage or mass. Patient was mildly tachycardic and low normal blood pressure and received 3 L of IV fluids total with now normal blood pressure of 119/47. PCP is Dr. Phillips Patient History Medical History (Updated 10/03/18 @ 15:40 by Mary Baird DO) BPH (benign prostatic hyperplasia) (Chronic) Depression (Chronic) Tremor (Chronic) Tourette's syndrome (Chronic) Fatigue (Chronic) Pancreatic cancer (Suspected) Epigastric pain (Chronic) Uncomplicated opioid dependence (Chronic) Idiopathic pancreatitis (Chronic) History of Lyme disease (Chronic 07/08/15) Pancreatic insufficiency (Acute) Urinary retention (Acute) Whipple disease (Acute) Back pain (Chronic) Surgical History History of partial pancreatectomy (Chronic) S/P ERCP (Chronic) Family History (Updated 10/03/18 @ 15:59 by Mary Baird DO) Sister Carmelita's Mother Breast cancer Bladder cancer Father Immunoblastic lymphoma Social History marital status: unmarried,single household members: none lives independently: Yes Smoking Status: Never smoker alcohol intake: never Family & Social History Family History (Updated 10/03/18 @ 15:59 by Mary Baird DO) Sister Carmelita's Mother Breast cancer Bladder cancer Father Immunoblastic lymphoma Social History: household members none Prior Living Arrangements House lives independently Yes Safety & Behavioral: Feels Safe in Current Yes Environment Been Physically Hurt or No Threatened By a Person Suicidal Ideation Description None Suicide Plan Description No Plan Tobacco & Substance use: Smoking Status Never smoker alcohol intake never Substance Use Type does not use The patient is single and has no children. He does not use alcohol or drugs and has never been a smoker. Meds Home Medications Medication Instructions Recorded Confirmed Type psyllium husk (aspartame) 1 ea PO DIRECTED #0 06/22/16 10/03/18 History [Metamucil Fiber Singles] bupropion HCl 300 mg PO DAILY #0 11/07/16 10/03/18 History adapalene [Differin] 1 sunny TOPICAL BEDTIME #0 06/02/17 10/03/18 History docusate sodium 2 cap PO DAILY #60 cap 06/29/17 10/03/18 History dapsone 5 % topical gel 1 applictn TOP BID #60 gram 09/18/17 10/03/18 Rx clonazepam 1 mg tablet 3 mg PO BEDTIME tab 01/01/18 10/03/18 History sulfacetamide sodium 10 % topical 1 applictn TOP BID 01/01/18 10/03/18 History cleanser, gel ascorbic acid (vitamin C) [Vitamin 500 mg PO DAILY 02/01/18 10/03/18 History C] azelaic acid [Finacea] 1 applic TOPICAL BID 02/01/18 10/03/18 History benzoyl peroxide [Panoxyl] 1 applic TOPICAL QAM 02/01/18 10/03/18 History cholecalciferol (vitamin D3) 4,000 - 6,000 unit PO DAILY 02/01/18 10/03/18 History [Vitamin D3] coenzyme Q10 [CoQ-10] 300 mg PO DAILY 02/01/18 10/03/18 History melatonin 10 mg PO BEDTIME 02/01/18 10/03/18 History minoxidil 1 ml TOPICAL DIRECTED 02/01/18 10/03/18 History tamsulosin [Flomax] 0.8 mg PO BEDTIME 02/01/18 10/03/18 History Ocuvite 1 cap PO DAILY 10/03/18 10/03/18 History aluminum chloride in alcohol 1 applic TOPICAL DAILY 10/03/18 10/03/18 History [Xerac AC] carbidopa-levodopa 1 tab PO TID 10/03/18 10/03/18 History finasteride 5 mg PO DAILY 10/03/18 10/03/18 History fluoxetine 60 mg PO DAILY 10/03/18 10/03/18 History lamotrigine 300 mg PO DAILY 10/03/18 10/03/18 History [id number] [Creon] 1 cap PO TID 10/03/18 10/03/18 History montelukast 10 mg PO DAILY 10/03/18 10/03/18 History quetiapine 150 mg PO BEDTIME 10/03/18 10/03/18 History Allergies Allergy/AdvReac Type Severity Reaction Status Date / Time promethazine [From PHENERGAN] AdvReac Severe tardive Verified 05/19/18 09:34 dyskinesia like effeect Review of Systems Review of Systems A 10 system comprehensive review of systems was conducted with the patient and found to be negative except as above in the History of Present Illness. Exam Vital Signs (past 8 hours): - 10/03/18 07:45 10/03/18 08:00 10/03/18 08:08 Temperature 103.2 F H Pulse Rate 116 H 115 H Respiratory Rate 13 Blood Pressure Blood Pressure [Left Arm] 98/59 L 101/64 Pulse Oximetry 96 10/03/18 08:15 10/03/18 08:30 10/03/18 09:00 Temperature Pulse Rate 118 H 112 H 113 H Respiratory Rate 15 16 Blood Pressure Blood Pressure [Left Arm] 101/64 95/66 89/35 L Pulse Oximetry 96 94 10/03/18 09:10 10/03/18 09:15 10/03/18 09:16 Temperature 101.5 F H 101.5 F H Pulse Rate 112 H 114 H Respiratory Rate 18 23 Blood Pressure Blood Pressure [Left Arm] 85/53 L 89/53 L Pulse Oximetry 93 96 10/03/18 09:19 10/03/18 09:23 10/03/18 09:55 Temperature Pulse Rate 113 H 110 H 107 H Respiratory Rate 18 17 12 Blood Pressure Blood Pressure [Left Arm] 85/53 L 91/50 L 93/50 L Pulse Oximetry 94 95 10/03/18 10:00 10/03/18 10:15 10/03/18 10:20 Temperature 101.2 F H 101.2 F H Pulse Rate 107 H 107 H Respiratory Rate 13 12 Blood Pressure Blood Pressure [Left Arm] 93/43 L 81/46 L Pulse Oximetry 94 10/03/18 10:32 10/03/18 11:00 10/03/18 11:21 Temperature Pulse Rate 105 H 103 H 102 H Respiratory Rate 17 20 17 Blood Pressure Blood Pressure [Left Arm] 87/45 L 87/48 L 87/47 L Pulse Oximetry 92 94 96 10/03/18 11:49 10/03/18 12:00 10/03/18 12:05 Temperature Pulse Rate 105 H 95 H 101 H Respiratory Rate 11 L Blood Pressure Blood Pressure [Left Arm] 89/54 L 94/50 L 94/50 L Pulse Oximetry 95 10/03/18 12:15 10/03/18 12:30 10/03/18 12:45 Temperature Pulse Rate 97 H 94 H 93 H Respiratory Rate 13 15 12 Blood Pressure Blood Pressure [Left Arm] 83/48 L 84/38 L 82/45 L Pulse Oximetry 97 97 10/03/18 13:13 10/03/18 13:38 10/03/18 14:07 Temperature 98.6 F Pulse Rate 90 83 84 Respiratory Rate 12 11 L 16 Blood Pressure 93/53 L Blood Pressure [Left Arm] 98/64 91/55 L Pulse Oximetry 97 98 97 10/03/18 14:34 Temperature 98.9 F Pulse Rate 76 Respiratory Rate 12 Blood Pressure 119/57 L Blood Pressure [Left Arm] Pulse Oximetry 97 Oxygen Delivery Method Room Air Narrative Exam Narrative: General: Older gentleman sitting in bed and in no acute distress, well-developed, well-nourished, appropriately interactive. HEENT: Normocephalic, atraumatic. External ears without defect. Pupils equal, round, and reactive to light. Anicteric sclerae, moist conjunctivae, and no lid lag. Oropharynx free of erythema and cobble stoning with moist mucosa. Small cut on face from shaving. No mucositis. Neck: Supple with full range of motion. No jugular venous distension. No bruits. No lymphadenopathy or thyromegaly. Cardiovascular: Regular rate and rhythm without murmurs, rubs, or gallops appreciated Pulmonary: Clear to auscultation bilaterally without crackles, wheezes, or rhonchi. Normal respiratory effort with no use of accessory muscles. Abdomen: Soft, bowel sounds present, nontender, nondistended. No hepatosplenomegaly or masses appreciated. Extremities: No clubbing, cyanosis, or edema. Skin: Normal temperature, turgor, and texture; no rash, ulcers, or subcutaneous nodules appreciated. Neurological: Cranial nerves grossly intact. Normal muscle strength, tone, and bulk. Reflexes, coordination, and sensory function within normal limits. No known gait impairment. Psychiatric: Depressed mood and flat affect. Alert and oriented to person, place, and time. Objective Labs Result Diagrams: 10/03/18 07:30 10/03/18 07:30 Labs: Laboratory Results - last 24 hr 10/03/18 10/03/18 10/03/18 07:30 07:30 07:30 WBC 11.5 H RBC 4.96 Hgb 14.6 Hct 44.0 MCV 88.7 MCH 29.5 MCHC 33.3 RDW 13.1 Plt Count 179 Neut % (Auto) 96.2 H Lymph % (Auto) 2.3 L Murray % (Auto) 1.2 L Eos % (Auto) 0.1 L Baso % (Auto) 0.2 Neut # (Auto) 50202 H Lymph # (Auto) 300 L Murray # (Auto) 100 Eos # (Auto) 0 Baso # (Auto) 0 Sodium 140 Potassium 3.8 Chloride 104 Carbon Dioxide 28 BUN 29 H Creatinine 1.00 Estimated GFR > 60.0 BUN/Creatinine Ratio 29.0 H Glucose 97 Lactate 2.2 H Calcium 9.6 Total Bilirubin 0.4 AST 30 ALT 28 Alkaline Phosphatase 84 Total Protein 6.8 Albumin 4.2 Globulin 2.6 Albumin/Globulin Ratio 1.6 Procalcitonin Prolactin Urine Color Urine Appearance Urine pH Ur Specific Cement Urine Protein Urine Glucose (UA) Urine Ketones Urine Occult Blood Urine Nitrate Urine Bilirubin Urine Urobilinogen Ur Leukocyte Esterase Urine RBC Urine WBC Urine Bacteria Ur Culture Indicated? 10/03/18 10/03/18 10/03/18 07:30 07:30 07:58 WBC RBC Hgb Hct MCV MCH MCHC RDW Plt Count Neut % (Auto) Lymph % (Auto) Murray % (Auto) Eos % (Auto) Baso % (Auto) Neut # (Auto) Lymph # (Auto) Murray # (Auto) Eos # (Auto) Baso # (Auto) Sodium Potassium Chloride Carbon Dioxide BUN Creatinine Estimated GFR BUN/Creatinine Ratio Glucose Lactate Calcium Total Bilirubin AST ALT Alkaline Phosphatase Total Protein Albumin Globulin Albumin/Globulin Ratio Procalcitonin 2.25 H Prolactin 29.8 H Urine Color Yellow Urine Appearance Clear Urine pH 7.0 Ur Specific Cement 1.015 Urine Protein Negative Urine Glucose (UA) Negative Urine Ketones Negative Urine Occult Blood Negative Urine Nitrate Negative Urine Bilirubin Negative Urine Urobilinogen 0.2 Ur Leukocyte Esterase Negative Urine RBC 0-1/hpf Urine WBC 0-1/hpf Urine Bacteria Occasional (0-1) Ur Culture Indicated? Cult not indicated 10/03/18 10:10 WBC RBC Hgb Hct MCV MCH MCHC RDW Plt Count Neut % (Auto) Lymph % (Auto) Murray % (Auto) Eos % (Auto) Baso % (Auto) Neut # (Auto) Lymph # (Auto) Murray # (Auto) Eos # (Auto) Baso # (Auto) Sodium Potassium Chloride Carbon Dioxide BUN Creatinine Estimated GFR BUN/Creatinine Ratio Glucose Lactate 0.9 Calcium Total Bilirubin AST ALT Alkaline Phosphatase Total Protein Albumin Globulin Albumin/Globulin Ratio Procalcitonin Prolactin Urine Color Urine Appearance Urine pH Ur Specific Cement Urine Protein Urine Glucose (UA) Urine Ketones Urine Occult Blood Urine Nitrate Urine Bilirubin Urine Urobilinogen Ur Leukocyte Esterase Urine RBC Urine WBC Urine Bacteria Ur Culture Indicated? 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 1. Acute fever, present on admission. Resolved. -Patient presented for fever of 103.2? F with rigors and found to be mildly tachycardic with low normal blood pressure. He received 3 L NS boluses with resolution of fever, rigors, tachycardia and improvement in BP. -Patient likely dehydrated with BUN 29, WBC 11.5 (normal 11), and LA 2.2 (normal 2.1) possibly due to medications (tamsulosin and finasteride) which could contribute to his low normal blood pressure. Patient meets SIRS of non-infectious etiology and without organ dysfunction. Does not meet sepsis criteria. -The patient is also on multiple medications which can cause hypotension (clonazepam, carbidopa/levodopa, quetiapine, finasteride, and tamsulosin). Review of chart demonstrates patient normally has low normal BP. -The patient's multiple psychiatric medications also can induce fever. Of note, fluoxetine was increased recently. -Procalcitonin is elevated at 2.25 which may be falsely elevated due to previous history of cancer and recent liver resection/manipulation with Whipple procedure. -Urinalysis was completely normal. Patient has no urinary symptoms. -Chest x-ray did not demonstrate any acute cardiopulmonary process. Patient has no URI symptoms other than fever. -Requested CT abdomen and pelvis with contrast which demonstrated postsurgical changes from previous Whipple without metastases, any acute abnormalities or source for fever. -CT brain without contrast did not demonstrate any acute intracranial process such as hemorrhage or mass. Patient has chronic headaches which have not changed in severity or quality. -Patient has history of Lyme disease in 2002 which was treated. He has no joint pain, myalgias, malaise or neurological symptoms other than chronic headache and fever. -Ordered respiratory PCR, pending. Patient has no URI symptoms other than fever. -Ordered blood cultures x2 pending. -Patient received vancomycin and Zosyn in the ED. Will hold off on empiric antibiotics as it is unclear if patient truly has an infection and/or the source of infection of so. -Continue to monitor vital signs closely. -Continue to trend WBC and PCT. 2. History of pancreatic cancer status post Whipple and chemo now in remission with secondary pancreatic insufficiency, present on admission. -Continue Creon 3 times a day with meals. 3. Depression and anxiety, chronic, present on admission. Stable. -Continue bupropion 300 mg daily, fluoxetine 60 mg daily, lamotrigine 300 mg daily, melatonin 10 mg daily at bedtime and clonazepam 3 mg daily at bedtime. 4. Tourette's disorder, chronic, present on admission. Stable. -Continue quetiapine 150 mg daily at bedtime, carbidopa-levodopa 50-200 mg three times daily, and tamsulosin 0.8 mg for urinary retention related to quetiapine use. Patient is admitted under observation status with expected length of stay less than 2 midnights due to severity of presenting symptoms, risk of adverse event, and complexity of treatment plan. Quality VTE Deep Vein Thrombosis/Pulmonary Embolism Present on Admission: No
[2018-10-03] MEDS: CARBIDOPA-LEVODOPA ER 50/200 TABLET 1 EACH PO ×2 (16:59→20:40)
--- NOTE | 2018-10-03 18:02 | PC.NURSE ---
1800- Patient c/o feeling cold and shivering. Temp is 99.0 temporal. BP 119/57. Room temperature increased. Will monitor.
[2018-10-03] MEDS: ACETAMINOPHEN 325 MG TABLET 650 MG PO (19:07)
--- NOTE | 2018-10-03 19:11 | PC.NURSE ---
1900- Patient heart rate starting to climb and patient is shivering. Temperature is 100.6 medicated per order with tylenol po. Will monitor.
[2018-10-03 19:32] LABS: Adenovirus Not Detected (Not Detect); Bordetella pertussis Not Detected (Not Detect); Chlamydophila pneumoniae Not Detected (Not Detect); Coronavirus 229E Not Detected (Not Detect); Coronavirus HKU1 Not Detected (Not Detect); Coronavirus NL 63 Not Detected (Not Detect); Coronavirus OC43 Not Detected (Not Detect); Human Metapneumovirus Not Detected (Not Detect); Human Rhinovirus/Enterovirus Not Detected (Not Detect); Influenza A Not Detected (Not Detect); Influenza B Not Detected (Not Detect); Mycoplasma pneumoniae Not Detected (Not Detect); Parainfluenza Virus 1 Not Detected (Not Detect); Parainfluenza Virus 2 Not Detected (Not Detect); Parainfluenza Virus 3 Not Detected (Not Detect); Parainfluenza Virus 4 Not Detected (Not Detect); Respiratory Syncytial Virus Not Detected (Not Detect)
[2018-10-03] MEDS: SODIUM CHLORIDE 0.9% 1,000 ML 100 ML IV (20:24)
[2018-10-03] MEDS: clonazePAM 0.5 MG TABLET 3 MG PO (20:39)
[2018-10-03] MEDS: QUETIAPINE 100 MG TABLET PO (20:41)
[2018-10-03] MEDS: MELATONIN 3 MG TABLET 9 MG PO (20:41)
[2018-10-03] MEDS: TAMSULOSIN 0.4 MG CAPSULE 0.8 MG PO (20:43)
[2018-10-03] MEDS: HEPARIN 5,000 UNIT/ML VIAL 5000 UNIT SUBCUT (20:45)
[2018-10-04] VITALS (9 sets, daily range): BP systolic 95–140; BP diastolic 52–63; PULSE 64–104; RESP 15–23; TEMP 36.6–38.2; O2SAT 92–97
[2018-10-04] MEDS: IBUPROFEN 600 MG TABLET PO (05:43)
[2018-10-04] MEDS: SODIUM CHLORIDE 0.9% 1,000 ML 100 ML IV ×2 (06:20→19:00)
[2018-10-04 06:22] LABS: Add Manual Diff / Slide Review NO; Basophils Absolute Auto 0 /uL (0-100); Basophils Percent Auto 0.2 % (0-2); Eosinophils Absolute Auto 0 /uL (0-450); Eosinophils Percent Auto 0.1 % (2-4); Hematocrit 39.5 % (41-53); Hemoglobin 13.1 g/dL (13.5-17.5); Lymphocytes Absolute Auto 700 /uL (1100-4500); Lymphocytes Percent Auto 5.7 % (25-40); Mean Corpuscular HGB Conc 33.1 % (30-36); Mean Corpuscular Hemoglobin 29.9 PG (26-34); Mean Corpuscular Volume 90.3 fL (80-100); Monocytes Absolute Auto 800 /uL (0-900); Monocytes Percent Auto 6.3 % (3-14); Neutrophils Absolute Auto 10600 /uL (1500-7000); Neutrophils Percent Auto 87.7 % (50-75); Platelet Count 130 X10^3/uL (150-400); Red Blood Cell Count 4.38 X10^6/uL (4.5-5.9); Red Cell Distribution Width 13.4 % (11.6-14.8); White Blood Cell Count 12.1 X10^3/uL (4.5-11.0)
[2018-10-04 06:25] LABS: BUN Creatinine Ratio 26.7 (6-22); Blood Urea Nitrogen 24 mg/dL (9-20); Calcium 8.6 mg/dL (8.4-10.2); Carbon Dioxide 26 mmol/L (22-32); Chloride 108 mmol/L (98-107); Estimated Glomerular Filt Rate > 60.0 mL/min (>60); Glucose 93 mg/dL (80-110); HEMOLYSIS < 15 (0-50); Magnesium 1.9 mg/dL (1.6-2.3); Potassium 3.9 mmol/L (3.4-5.1); Sodium 139 mmol/L (137-145)
[2018-10-04 06:49] LABS: Procalcitonin 41.26 ng/mL (<0.5)
[2018-10-04] MEDS: PIPERACILLIN-TAZO 3.375 GM/50 ML FROZ.PIGGY IV ×3 (08:32→19:41)
[2018-10-04] MEDS: CARBIDOPA-LEVODOPA ER 50/200 TABLET 1 EACH PO ×3 (08:33→19:02)
[2018-10-04] MEDS: FLUoxetine 20 MG CAPSULE 40 MG PO (08:33)
[2018-10-04] MEDS: buPROPion XL 150 MG TAB 300 MG PO (08:33)
[2018-10-04] MEDS: lamoTRIgine 100 MG TABLET 300 MG PO (08:34)
[2018-10-04] MEDS: MONTELUKAST 10 MG TABLET PO (08:34)
[2018-10-04] MEDS: HEPARIN 5,000 UNIT/ML VIAL 5000 UNIT SUBCUT ×2 (08:34→19:05)
--- NOTE | 2018-10-04 08:37 | P.PN_ITS ---
Subjective Date Patient Seen: 10/04/18 Time Patient Seen: 08:33 Interval history: Follow-up on sepsis of unknown origin. Patient seen at bedside. He is feeling okay, however continues to have fevers and occasional rigors. Patient denies any other symptoms, such as headache, blurry vision, loss of consciousness, dizziness. Denies any sinus pressure, rhinorrhea, shortness of breath, sore throat, chest pain, cough. Patient denies any nuchal rigidity, back pain, but has had chronic headaches that has not changed. Patient denies any nausea, vomiting, diarrhea, constipation, abdominal pain. He continues to pass gas without difficulty. Patient denies any hematuria, dysuria, urinary frequency. Patient denies any recent surgeries, as well as skin lacerations or falls. Patient has not been in contact with anyone sick. Patient continues to spike fever overnight and is diaphoretic. Blood pressure stabilized with IV fluids. Exam Vital Signs (past 8 hours): - 10/04/18 01:41 10/04/18 05:20 10/04/18 05:43 Temperature 100.8 F H 100.8 F H Pulse Rate 92 H 92 H Respiratory Rate 20 23 Blood Pressure 95/52 L 105/52 L Pulse Oximetry 97 97 10/04/18 07:51 Temperature 97.8 F Pulse Rate 104 H Respiratory Rate 16 Blood Pressure 100/53 L Pulse Oximetry 93 Oxygen Delivery Method Room Air Narrative Exam Narrative: general: No acute distress, AAO x3 HEENT: PERRLA and EOMI bilaterally. Normocephalic, atraumatic. No nuchal rigidity Skin: Patient is diaphoretic Neck: Supple, no LAD or JVD CV: Regular rate rhythm, no murmurs or gallops Respiratory: Clear to auscultation bilaterally, no wheezes or crackles GI: No abdominal tenderness, positive bowel sounds in all 4 quadrants Extremities: No edema, wound lacerations, or any evidence of infection Neuro: No focal deficits, AAO x3 Psych: Normal mood and affect, able to make his own decisions Objective Labs Result Diagrams: 10/04/18 05:20 10/04/18 05:20 Labs: Laboratory Results - last 24 hr 10/03/18 10/03/18 10/03/18 07:30 07:30 07:58 WBC RBC Hgb Hct MCV MCH MCHC RDW Plt Count Neut % (Auto) Lymph % (Auto) [place] % (Auto) Eos % (Auto) Baso % (Auto) Neut # (Auto) Lymph # (Auto) [place] # (Auto) Eos # (Auto) Baso # (Auto) Sodium Potassium Chloride Carbon Dioxide BUN Creatinine Estimated GFR BUN/Creatinine Ratio Glucose Lactate Calcium Magnesium Procalcitonin 2.25 H Prolactin 29.8 H Urine Color Yellow Urine Appearance Clear Urine pH 7.0 Ur Specific [place] 1.015 Urine Protein Negative Urine Glucose (UA) Negative Urine Ketones Negative Urine Occult Blood Negative Urine Nitrate Negative Urine Bilirubin Negative Urine Urobilinogen 0.2 Ur Leukocyte Esterase Negative Urine RBC 0-1/hpf Urine WBC 0-1/hpf Urine Bacteria Occasional (0-1) Ur Culture Indicated? Cult not indicated Nasal Screen MRSA (PCR) Chlamy pneumoniae PCR Adenovirus (PCR) B.parapertussis DNA PCR Coronavirus OC43 (PCR) Coronavirus HKU1 (PCR) Coronavirus 229E (PCR) Coronavirus NL63 (PCR) Human Metapneumovir PCR Influenza Type A (PCR) Influenza Type B (PCR) M. pneumoniae (PCR) Parainfluenza 1 (PCR) Parainfluenza 2 (PCR) Parainfluenza 3 (PCR) Parainfluenza 4 (PCR) RSV (PCR) Entero/Rhino (PCR) 10/03/18 10/03/18 10/03/18 10:10 20:00 Unknown WBC RBC Hgb Hct MCV MCH MCHC RDW Plt Count Neut % (Auto) Lymph % (Auto) [place] % (Auto) Eos % (Auto) Baso % (Auto) Neut # (Auto) Lymph # (Auto) [place] # (Auto) Eos # (Auto) Baso # (Auto) Sodium Potassium Chloride Carbon Dioxide BUN Creatinine Estimated GFR BUN/Creatinine Ratio Glucose Lactate 0.9 Calcium Magnesium Procalcitonin Prolactin Urine Color Urine Appearance Urine pH Ur Specific [place] Urine Protein Urine Glucose (UA) Urine Ketones Urine Occult Blood Urine Nitrate Urine Bilirubin Urine Urobilinogen Ur Leukocyte Esterase Urine RBC Urine WBC Urine Bacteria Ur Culture Indicated? Nasal Screen MRSA (PCR) Positive for mrsa H Chlamy pneumoniae PCR Not detected Adenovirus (PCR) Not detected B.parapertussis DNA PCR Not detected Coronavirus OC43 (PCR) Not detected Coronavirus HKU1 (PCR) Not detected Coronavirus 229E (PCR) Not detected Coronavirus NL63 (PCR) Not detected Human Metapneumovir PCR Not detected Influenza Type A (PCR) Not detected Influenza Type B (PCR) Not detected M. pneumoniae (PCR) Not detected Parainfluenza 1 (PCR) Not detected Parainfluenza 2 (PCR) Not detected Parainfluenza 3 (PCR) Not detected Parainfluenza 4 (PCR) Not detected RSV (PCR) Not detected Entero/Rhino (PCR) Not detected 10/04/18 10/04/18 10/04/18 05:20 05:20 05:20 WBC 12.1 H RBC 4.38 L Hgb 13.1 L Hct 39.5 L MCV 90.3 MCH 29.9 MCHC 33.1 RDW 13.4 Plt Count 130 L Neut % (Auto) 87.7 H Lymph % (Auto) 5.7 L [place] % (Auto) 6.3 Eos % (Auto) 0.1 L Baso % (Auto) 0.2 Neut # (Auto) 05768 H Lymph # (Auto) 700 L [place] # (Auto) 800 Eos # (Auto) 0 Baso # (Auto) 0 Sodium 139 Potassium 3.9 Chloride 108 H Carbon Dioxide 26 BUN 24 H Creatinine 0.90 Estimated GFR > 60.0 BUN/Creatinine Ratio 26.7 H Glucose 93 Lactate Calcium 8.6 Magnesium 1.9 Procalcitonin 41.26 H Prolactin Urine Color Urine Appearance Urine pH Ur Specific [place] Urine Protein Urine Glucose (UA) Urine Ketones Urine Occult Blood Urine Nitrate Urine Bilirubin Urine Urobilinogen Ur Leukocyte Esterase Urine RBC Urine WBC Urine Bacteria Ur Culture Indicated? Nasal Screen MRSA (PCR) Chlamy pneumoniae PCR Adenovirus (PCR) B.parapertussis DNA PCR Coronavirus OC43 (PCR) Coronavirus HKU1 (PCR) Coronavirus 229E (PCR) Coronavirus NL63 (PCR) Human Metapneumovir PCR Influenza Type A (PCR) Influenza Type B (PCR) M. 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 He is admitted with severe sepsis of unknown origin. 1. Severe sepsis, present on admission, improving -patient is continuing to have fevers of 103.2 F T-max. Leukocytosis is on the rise at 12.1, and procalcitonin increased to 41.2 -patient's blood pressure is controlled with IV fluid maintenance, not requiring pressors -up to date, no source of infection has been identified: UA is negative, PCR respiratory panel is negative, chest x-ray is negative, CT abdomen and pelvis negative. There are no indications for lumbar puncture at this time, as patient does not have acute headache, nuchal rigidity, neural deficit -blood and urine cultures have been collected, and results are pending -given patient's increasing procalcitonin leukocytosis, started patient on vancomycin and Zosyn for broad coverage, as well as positivity of MRSA in nares -continue to monitor for improvement -continue Tylenol for fever, IV fluids. Added ibuprofen for possible noninfectious SIRS 2. History of pancreatic cancer with secondary pancreatic insufficiency, present on admission. -status post Whipple and chemo now in remission -Continue Creon 3 times a day with meals 3. Depression and anxiety, chronic, present on admission. Stable. -Continue bupropion 300 mg daily, lamotrigine 300 mg daily, melatonin 10 mg daily at bedtime and clonazepam 3 mg daily at bedtime. Decrease fluoxetine dosage due to possibility of fever a side effect 4. Tourette's disorder, chronic, present on admission. Stable. -Continue carbidopa-levodopa 50-200 mg three times daily, tamsulosin 0.8 mg for urinary retention related to quetiapine use. Decrease quit typing dose due to possibility of fever as a side effect Dispo: Managing patient's severe sepsis with IV fluids, antibiotics, Tylenol. Waiting for cultures for source identification. If patient continues to spike fever despite the treatment and no source is identified, we will consider consulting with Infectious Diseases specialist for more recommendations. Quality VTE Deep Vein Thrombosis/Pulmonary Embolism Present on Admission: No
[2018-10-04 09:36] LABS: Amylase 37 U/L (30-110); Lipase 11 U/L (23-300)
[2018-10-04] MEDS: VANCOMYCIN 1,000 MG/200 ML FROZ.PIGGY 200 MG IV ×2 (10:43→16:49)
[2018-10-04] MEDS: LIPASE/PROTEASE/AMYLASE 5/17/24 CAP PO (17:55)
[2018-10-04] MEDS: clonazePAM 0.5 MG TABLET 3 MG PO (19:01)
[2018-10-04] MEDS: MELATONIN 3 MG TABLET 9 MG PO (19:03)
[2018-10-04] MEDS: QUETIAPINE 100 MG TABLET PO (19:03)
[2018-10-04] MEDS: TAMSULOSIN 0.4 MG CAPSULE 0.8 MG PO (19:04)
--- NOTE | 2018-10-04 19:15 | PC.NURSE ---
Addendum entered by Kamila Berry R.N. 10/04/18 21:56: Pt resting quietly in bed on right side with eyes closed. IV fluids infusing as ordered without difficulty to PICC LUE. Afebrile this shift. No concerns or complaints verbalized by patient this shift. Original Note: Pt awake and alert in bed @ beginning of shift. Denies pain, denies any complaints. IV fluids moved from peripheral iv site to PICC site after successfully checking for blood return and ease of saline flush. IV vancomycin infused without difficulty to this site. Pt requests all hs meds @ this hour as states this is usual time to retire at home. These were given. Pt is assessed as safe on feet and denies any history of falling. Urinal use in bathroom per pt's request. Contact precautions observed.
[2018-10-04] MEDS: SODIUM CHLORIDE 0.9% FLUSH 10 ML IV (19:42)
[2018-10-05 00:40] VITALS: BP 106/61; PULSE 82; RESP 16; TEMP 36.6; O2SAT 96
[2018-10-05] MEDS: VANCOMYCIN 1,000 MG/200 ML FROZ.PIGGY 200 MG IV ×2 (01:37→10:13)
--- NOTE | 2018-10-05 02:31 | PC.NURSE ---
2300- Pt on contact precautions for + MRSA swab; VSS on RA; tele in place reading SR. Double lumen PICC in place infusing NS as ordered; R wrist IV saline locked. No difficulties voiding or moving in room. 0230- IV Vancomycin hung as ordered, pt denies pain or needs.
[2018-10-05] MEDS: PIPERACILLIN-TAZO 3.375 GM/50 ML FROZ.PIGGY IV ×2 (02:41→08:11)
[2018-10-05 05:30] VITALS: BP 127/77; PULSE 74; RESP 16; TEMP 36.9; O2SAT 95
[2018-10-05] MEDS: SODIUM CHLORIDE 0.9% 1,000 ML 100 ML IV (06:11)
[2018-10-05 06:17] LABS: Add Manual Diff / Slide Review NO; Basophils Absolute Auto 0 /uL (0-100); Basophils Percent Auto 0.2 % (0-2); Eosinophils Absolute Auto 200 /uL (0-450); Eosinophils Percent Auto 2.3 % (2-4); Hematocrit 39.2 % (41-53); Hemoglobin 13.2 g/dL (13.5-17.5); Lymphocytes Absolute Auto 900 /uL (1100-4500); Lymphocytes Percent Auto 10.7 % (25-40); Mean Corpuscular HGB Conc 33.6 % (30-36); Mean Corpuscular Hemoglobin 30.2 PG (26-34); Mean Corpuscular Volume 89.8 fL (80-100); Monocytes Absolute Auto 900 /uL (0-900); Monocytes Percent Auto 10.4 % (3-14); Neutrophils Absolute Auto 6300 /uL (1500-7000); Neutrophils Percent Auto 76.4 % (50-75); Platelet Count 119 X10^3/uL (150-400); Red Blood Cell Count 4.37 X10^6/uL (4.5-5.9); Red Cell Distribution Width 13.4 % (11.6-14.8); White Blood Cell Count 8.2 X10^3/uL (4.5-11.0)
[2018-10-05 06:38] LABS: HEMOLYSIS < 15 (0-50); Potassium 3.9 mmol/L (3.4-5.1)
[2018-10-05 06:39] LABS: Blood Urea Nitrogen 17 mg/dL (9-20); Carbon Dioxide 26 mmol/L (22-32); Chloride 107 mmol/L (98-107); Estimated Glomerular Filt Rate > 60.0 mL/min (>60); Glucose 96 mg/dL (80-110); Sodium 139 mmol/L (137-145)
[2018-10-05 07:16] LABS: Procalcitonin 27.33 ng/mL (<0.5)
[2018-10-05 08:05] VITALS: O2SAT 95
[2018-10-05] MEDS: MONTELUKAST 10 MG TABLET PO (08:11)
[2018-10-05] MEDS: CARBIDOPA-LEVODOPA ER 50/200 TABLET 1 EACH PO (08:11)
[2018-10-05] MEDS: lamoTRIgine 100 MG TABLET 300 MG PO (08:11)
[2018-10-05] MEDS: FLUoxetine 20 MG CAPSULE 40 MG PO (08:11)
[2018-10-05] MEDS: buPROPion XL 150 MG TAB 300 MG PO (08:11)
[2018-10-05] MEDS: HEPARIN 5,000 UNIT/ML VIAL 5000 UNIT SUBCUT (08:11)
[2018-10-05] MEDS: SODIUM CHLORIDE 0.9% FLUSH 10 ML IV (08:12)
[2018-10-05] MEDS: LIPASE/PROTEASE/AMYLASE 5/17/24 CAP PO ×2 (08:12→12:15)
[2018-10-05] MEDS: VANCOMYCIN TROUGH 1 REQUEST MISC (08:57)
[2018-10-05 09:07] VITALS: BP 124/74; PULSE 79; RESP 18; TEMP 36.9; O2SAT 96
[2018-10-05 09:33] LABS: Vancomycin Trough 12.5 ug/mL (10-20)
--- NOTE | 2018-10-05 11:49 | P.DS_ITS ---
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 The patient reports that he woke up this morning shaking uncontrollably. He took a shower and a bath which did not help then decided to call 911. He was at his psychiatrist's office yesterday who mentions that he may have had an abnormal heart rhythm and plan to have an EKG today at his PCPs office. He reports his blood pressure was normal at that time. He has chronic headaches which have not been more severe than usual. He has had no other symptoms. He denies lightheadedness, dizziness, presyncope or syncope, vision changes, rhinitis, nasal congestion, sore throat, cough, wheezing, chest pain, shortness of breath, skin rash, abdominal pain, joint pain, nausea, vomiting, dysuria, urinary urgency, urinary frequency, or diarrhea. He endorses chronic const ipation for which he takes laxatives. He occasionally has a sharp right-sided pain with bending over and is not always present while bending over. He endorses chronic right-sided ear pain when he tugs on his ear. He has had no sick contacts and has not felt ill in the last several days preceding fever and does not feel particularly ill today since rigors have resolved. He has noticed watery eyes. Discharge Providers Date of admission: 10/03/18 13:45 Discharge Date: 10/05/18 Primary care physician: Leobardo Phillips MD Consults: 10/03/18 10:41 Consult to PICC Line RN Stat Comment: Discharge provider: Kimberli Alejo MD Summary Discharge Diagnosis: Severe sepsis, present on admission, improving History of pancreatic cancer with secondary pancreatic insufficiency, present on admission, s/p whipple procedure Depression and anxiety, chronic, present on admission. Stable. Tourette's disorder, chronic, present on admission. Stable. Hospital Course: In the ED, the patient was found to be febrile at 103.2, leukocytosis of 11.5 and requested procalcitonin of 2.25. Urinalysis performed had no abnormalities and chest x-ray did not demonstrate any acute cardiopulmonary process. CT abdomen and pelvis demonstrated postsurgical changes from previous Whipple without metastases, no acute abnormalities or source for fever. Patient did not have nuchal rigidity on exam. He had mild photophobia related to his headache. CT brain without contrast did not demonstrate any acute intracranial process such as hemorrhage or mass. Patient was mildly tachycardic and low normal blood pressure and received 3 L of IV fluids total with now normal blood pressure of 119/47. He was subsequently admitted for further evaluation of fever. Once admitted, patient was started on maintenance IV fluid hydration. Initially antibiotics were not administered as fever have seemed to have resolved. Nevertheless over the next few hours fever has returned to 102.5 F on Zosyn IV, for the treatment of severe sepsis of unknown origin. The next morning patient's white blood cell count increased to 12.1 and procalcitonin increased to 41. Blood cultures and urine cultures came back negative. Given the positivit y of MRSA screen, patient's antibiotic coverage was then broadened to Zosyn and vancomycin IV for broad coverage. He was continued on IV fluid hydration. By next day, patient's procalcitonin has decreased to 27. His leukocytosis has resolved to 8.2. Fever normalized on the evening of 10/04. Patient was insistent on being discharged. Prior to his discharge, I have called Infectious Diseases specialist to discuss patient's case. No further diagnostic studies were recommended, however it was recommended for patient to stay in the hospital until procalcitonin levels came down to less than 4. Patient was not willing to stay in the hospital, and he was therefore discharged home on cefdinir and metronidazole for 7 more days of therapy. Patient was instructed to follow up with his primary care doctor within 3 days of discharge for repeat levels of procalcitonin and CBC. Exam Vital Signs (past 8 hours): - 10/05/18 05:30 10/05/18 08:05 10/05/18 09:07 Temperature 98.5 F 98.4 F Pulse Rate 74 79 Respiratory Rate 16 18 Blood Pressure 127/77 124/74 Pulse Oximetry 95 95 96 Oxygen Delivery Method Room Air Oxygen Flow Rate 0 Narrative Exam Narrative: general: No acute distress, AAO x3 HEENT: PERRLA and EOMI bilaterally. Normocephalic, atraumatic. No nuchal rigidity Skin: Patient is diaphoretic Neck: Supple, no LAD or JVD CV: Regular rate rhythm, no murmurs or gallops Respiratory: Clear to auscultation bilaterally, no wheezes or crackles GI: No abdominal tenderness, positive bowel sounds in all 4 quadrants Extremities: No edema, wound lacerations, or any evidence of infection Neuro: No focal deficits, AAO x3 Psych: Normal mood and affect, able to make his own decisions Objective Labs Result Diagrams: 10/05/18 05:15 10/05/18 05:15 Labs: Laboratory Results - last 24 hr 10/05/18 10/05/18 10/05/18 05:15 05:15 05:15 WBC 8.2 RBC 4.37 L Hgb 13.2 L Hct 39.2 L MCV 89.8 MCH 30.2 MCHC 33.6 RDW 13.4 Plt Count 119 L Neut % (Auto) 76.4 H Lymph % (Auto) 10.7 L [place] % (Auto) 10.4 Eos % (Auto) 2.3 Baso % (Auto) 0.2 Neut # (Auto) 6300 Lymph # (Auto) 900 L [place] # (Auto) 900 Eos # (Auto) 200 Baso # (Auto) 0 Sodium 139 Potassium 3.9 Chloride 107 Carbon Dioxide 26 BUN 17 Creatinine 1.00 Estimated GFR > 60.0 BUN/Creatinine Ratio 17.0 Glucose 96 Calcium 9.0 Procalcitonin 27.33 H Vancomycin Trough 10/05/18 08:53 WBC RBC Hgb Hct MCV MCH MCHC RDW Plt Count Neut % (Auto) Lymph % (Auto) [place] % (Auto) Eos % (Auto) Baso % (Auto) Neut # (Auto) Lymph # (Auto) [place] # (Auto) Eos # (Auto) Baso # (Auto) Sodium Potassium Chloride Carbon Dioxide BUN Creatinine Estimated GFR BUN/Creatinine Ratio Glucose Calcium Procalcitonin Vancomycin Trough 12.5 Discharge Plan Discharge Plan Patient Disposition: Home Discharge Med Rec/Prescriptions Prescriptions: New metronidazole 500 mg tablet 250 mg PO TID Qty: 21 RF: 0 cefdinir 300 mg capsule 300 mg PO Q12H 7 Days Qty: 14 RF: 0 Continued clonazepam 1 mg tablet 3 mg PO BEDTIME RF: 0 sulfacetamide sodium 10 % cleanser, gel 1 applictn TOP BID RF: 0 dapsone 5 % gel 1 applictn TOP BID Qty: 60 RF: 0 Metamucil Fiber Singles 3.4 gram Powder In Packet 1 ea PO DIRECTED Qty: 0 RF: 0 bupropion HCl 300 MG tablet extended release 24 hr 300 mg PO DAILY Qty: 0 RF: 0 adapalene [Differin] 0.3 % gel 1 sunny Topical BEDTIME Qty: 0 RF: 0 docusate sodium 250 MG capsule 2 cap PO DAILY Qty: 60 RF: 2 benzoyl peroxide [Panoxyl] 10 % Cleanser 1 applic Topical QAM RF: 0 minoxidil 5 % Solution 1 ml TOPICAL DIRECTED RF: 0 ascorbic acid (vitamin C) [Vitamin C] 500 mg Tablet 500 mg PO DAILY RF: 0 coenzyme Q10 [CoQ-10] 100 mg Capsule 300 mg PO DAILY RF: 0 cholecalciferol (vitamin D3) [Vitamin D3] 2,000 unit Capsule 4,000 - 6,000 unit PO DAILY RF: 0 melatonin 10 mg Tablet 10 mg PO BEDTIME RF: 0 Finacea 15 % Foam 1 applic Topical BID RF: 0 tamsulosin [Flomax] 0.4 MG capsule 0.8 mg PO BEDTIME RF: 0 lamotrigine 150 mg tablet 300 mg PO DAILY RF: 0 quetiapine 100 mg tablet 150 mg PO BEDTIME RF: 0 aluminum chloride in alcohol 6.25 % solution 1 applic topical DAILY RF: 0 fluoxetine 20 mg capsule 60 mg PO DAILY RF: 0 bxyzit-cuqkdynh-ldvzgcd 24,000-76,000 -120,000 unit capsule,delayed releas e(DR/EC) 1 cap PO TID RF: 0 montelukast 10 MG tablet 10 mg PO DAILY RF: 0 finasteride 5 mg tablet 5 mg PO DAILY RF: 0 Ocuvite 1 cap PO DAILY RF: 0 carbidopa-levodopa 50 MG/200 MG tablet extended release 1 tab PO TID RF: 0 Follow up/Referrals: Leobardo Phillips MD [Primary Care Provider] - Provider Discharge Instructions Diet: Regular Other treatments: Follow up with PCP for PCT and CBC check within 3-4 days Skin/Wound/Dressing Care Report to your healthcare provider any signs of infection, such as:: chills, fever Discharge Data Primary Care Provider: Leobardo Phillips Attending Provider: Mary Baird Admkeyona Date/Time: 10/03/18 13:45 Quality VTE Deep Vein Thrombosis/Pulmonary Embolism Present on Admission: No
[2018-10-05 12:26] VITALS: BP 120/69; PULSE 73; RESP 17; TEMP 36.9; O2SAT 98
--- NOTE | 2018-10-05 15:12 | PC.NURSE ---
Discharge pt denies pain. Abx infused without issue. PIV removed prior to d/c. PICC removed according to hospital policy and procedure. d/c instructions provided to pt. Aware to contact PCP for any additional questions or concerns as well as for f/u with visit and labs in 3-4 days. pt took all belongings with him. left in w/c. Taxi home.
--- NOTE | 2018-10-05 15:15 | CM.IDA ---
Initial DCP Assessment Note: Pt is a 62 yo male, resident of [place]. Pt admitted w/sepsis of unknown source. PCP: Dr Phillips Payer: [employer] [facility]. Met w/pt today, explained role and reviewed DCP. Pt lives alone in [place]. He feels he manages well w/close outpt f/u w/ PCP and his psychiatrist in [place], Dr Lorena Aly. Pt is on disability benefits. Pt asks about cancer support group? Pt w/ h/o pancreatic cancer, now considered to be in remission after rounds of chemotherapy. This WORKDAY CONSULTANT strongly suggests pt contact Tommy Caoce-Laws through [facility] to discuss arranging a counseling visit. Vickie has made herself available to the community for those who are affected by cancer for counseling. Pt asks about Vickie taking his [place] coverage? This WORKDAY CONSULTANT refers to Vickie to discuss insurance coverage for her services. Pt appreciative and denies further needs. He is prepared for DC home today and will arrange a taxi home. LOBITO Campbell
[2018-10-06 17:22] LABS: Acinetobacter baumannii Not Detected (Not Detect); E. coli Detected (Not Detect); Enterobacter cloacae complex Not Detected (Not Detect); Enterobacteriaceae species Detected (Not Detect); KPC (carbapenem-resist gene) Not Detected (Not Detect); Listeria monocytogenes Not Detected (Not Detect); Staphylococcus species Not Detected (Not Detect); Streptococcus agalactiae (Gr B Not Detected (Not Detect); Streptococcus pneumonia Not Detected (Not Detect); Streptococcus pyogenes (Gr A) Not Detected (Not Detect); Streptococcus species Not Detected (Not Detect)
[2018-10-06 17:23] LABS: Candida albicans Not Detected (Not Detect); Candida glabrata Not Detected (Not Detect); Candida krusei Not Detected (Not Detect); Candida parapsilosis Not Detected (Not Detect); Candida tropicalis Not Detected (Not Detect); Haemophilus influenzae Not Detected (Not Detect); Neisseria meningitidis Not Detected (Not Detect); Proteus species Not Detected (Not Detect); Pseudomonas aeruginosa Not Detected (Not Detect); Serratia marcescens Not Detected (Not Detect)
[2018-10-06 17:37] LABS: Enterococcus species Not Detected (Not Detect)
== END 2018-10-05 14:20 | disposition home or self-care (01) | DRG 872 ==
LOC: ED 13:36 → ICU 14:12 → AC 10-04 14:39
PROVIDERS: Internal Medicine; Admitting Provider Internal Medicine; Emergency Provider Emergency Medicine; Family Provider Family Medicine; PCP Family Medicine; Visit Provider Internal Medicine
DX: A41.9 Sepsis, unspecified organism (principal); K86.89 Other specified diseases of pancreas; I95.9 Hypotension, unspecified; R65.20 Severe sepsis without septic shock; F41.9 Anxiety disorder, unspecified; F95.2 Tourette's disorder; F32.9 Major depressive disorder, single episode, unspecified; Z22.322 Carrier or suspected carrier of Methicillin resistant Staphylococcus aureus; Z85.07 Personal history of malignant neoplasm of pancreas; R33.9 Retention of urine, unspecified; R51 Headache
CPT/HCPCS: 36415; 36569; 36591; 36592; 70450; 71046; 74177; 80048; 80053; 80202; 81001; 81003; 82150; 83605; 83690; 83735; 84145; 84146; 85025; 87040; 87086; 87150; 87186; 87205; 87633; 87797; 93005; 93010; 96361; 96365; 96366; 96367; 96375; 99285; A9270; J1644; J1885; J2543; J3370; Q9967

== ENCOUNTER → 2018-10-11 09:38 | Outpatient (CLI) | payer OTHER, SELFPAY ==
[2018-10-03 14:03] VITALS: BMI 21.8
[2018-10-11 11:09] LABS: C-Reactive Protein Quant 0.8 mg/dL (<1.0)
== END ==
PROVIDERS: Family Provider Family Medicine; PCP Family Medicine; Visit Provider Family Medicine
DX: R50.9 Fever, unspecified (principal)
CPT/HCPCS: 36415; 86140

== ENCOUNTER → 2018-10-23 09:41 | Outpatient (CLI) | payer OTHER, SELFPAY ==
[2018-10-03 14:03] VITALS: BMI 21.8
[2018-10-23 11:07] LABS: Add Manual Diff / Slide Review NO; Basophils Absolute Auto 0 /uL (0-100); Basophils Percent Auto 0.7 % (0-2); Eosinophils Absolute Auto 100 /uL (0-450); Eosinophils Percent Auto 2.3 % (2-4); Hematocrit 42.3 % (41-53); Hemoglobin 14.6 g/dL (13.5-17.5); Lymphocytes Absolute Auto 1700 /uL (1100-4500); Lymphocytes Percent Auto 31.9 % (25-40); Mean Corpuscular HGB Conc 34.5 % (30-36); Mean Corpuscular Hemoglobin 30.2 PG (26-34); Mean Corpuscular Volume 87.5 fL (80-100); Monocytes Absolute Auto 400 /uL (0-900); Monocytes Percent Auto 6.8 % (3-14); Neutrophils Absolute Auto 3200 /uL (1500-7000); Neutrophils Percent Auto 58.3 % (50-75); Platelet Count 207 X10^3/uL (150-400); Red Blood Cell Count 4.84 X10^6/uL (4.5-5.9); Red Cell Distribution Width 13.6 % (11.6-14.8); White Blood Cell Count 5.5 X10^3/uL (4.5-11.0)
[2018-10-23 11:22] LABS: Alanine Aminotransferase 12 IU/L (21-72); Albumin 4.4 g/dL (3.5-5.0); Albumin Globulin Ratio 1.5 (1.0-2.8); Alkaline Phosphatase 87 U/L (38-126); Aspartate Aminotransferase 29 IU/L (17-59); Bilirubin Total 0.5 mg/dL (0.2-1.3); Blood Urea Nitrogen 29 mg/dL (9-20); Calcium 9.7 mg/dL (8.4-10.2); Carbon Dioxide 29 mmol/L (22-32); Chloride 102 mmol/L (98-107); Estimated Glomerular Filt Rate > 60.0 mL/min (>60); Globulin 2.9 g/dL (1.7-4.1); Glucose 92 mg/dL (80-110); HEMOLYSIS < 15 (0-50); Potassium 4.4 mmol/L (3.4-5.1); Sodium 141 mmol/L (137-145); Total Protein 7.3 g/dL (6.3-8.2)
[2018-10-26 12:32] LABS: Cancer (Carbohydrate) Ag 19-9 17 U/mL (< 34)
== END ==
PROVIDERS: PCP Family Medicine; Visit Provider Internal Medicine
DX: C25.0 Malignant neoplasm of head of pancreas (principal)
CPT/HCPCS: 36415; 80053; 85025; 86301

== ENCOUNTER → 2019-01-14 08:48 | Outpatient (CLI) | payer OTHER, SELFPAY ==
[2018-10-03 14:03] VITALS: BMI 21.8
[2019-01-14 09:57] LABS: Alanine Aminotransferase 14 IU/L (21-72); Albumin 4.3 g/dL (3.5-5.0); Albumin Globulin Ratio 1.7 (1.0-2.8); Alkaline Phosphatase 101 U/L (38-126); Aspartate Aminotransferase 41 IU/L (17-59); Bilirubin Total 0.4 mg/dL (0.2-1.3); Blood Urea Nitrogen 27 mg/dL (9-20); Calcium 9.7 mg/dL (8.4-10.2); Carbon Dioxide 31 mmol/L (22-32); Chloride 103 mmol/L (98-107); Estimated Glomerular Filt Rate > 60.0 mL/min (>60); Globulin 2.6 g/dL (1.7-4.1); Glucose 97 mg/dL (80-110); HEMOLYSIS < 15 (0-50); Potassium 4.6 mmol/L (3.4-5.1); Sodium 141 mmol/L (137-145); Total Protein 6.9 g/dL (6.3-8.2)
[2019-01-16 16:42] LABS: Cancer (Carbohydrate) Ag 19-9 28 U/mL (< 34)
== END ==
PROVIDERS: PCP Family Medicine; Visit Provider Internal Medicine
DX: C25.0 Malignant neoplasm of head of pancreas (principal)
CPT/HCPCS: 36415; 80053; 86301

== ENCOUNTER → 2019-03-12 08:58 | Outpatient (CLI) | payer OTHER, SELFPAY ==
[2018-10-03 14:03] VITALS: BMI 21.8
[2019-03-12 10:04] LABS: Alanine Aminotransferase 28 IU/L (21-72); Albumin 4.2 g/dL (3.5-5.0); Albumin Globulin Ratio 2.3 (1.0-2.8); Alkaline Phosphatase 100 U/L (38-126); Aspartate Aminotransferase 33 IU/L (17-59); BUN Creatinine Ratio 32.5 (6-22); Bilirubin Total 0.5 mg/dL (0.2-1.3); Blood Urea Nitrogen 26 mg/dL (9-20); Calcium 9.3 mg/dL (8.4-10.2); Carbon Dioxide 27 mmol/L (22-32); Chloride 105 mmol/L (98-107); Estimated Glomerular Filt Rate > 60.0 mL/min (>60); Globulin 1.8 g/dL (1.7-4.1); Glucose 110 mg/dL (80-110); HEMOLYSIS < 15 (0-50); Potassium 4.2 mmol/L (3.4-5.1); Sodium 140 mmol/L (137-145)
[2019-03-15 11:29] LABS: Cancer (Carbohydrate) Ag 19-9 28 U/mL (< 34)
== END ==
PROVIDERS: Family Provider Family Medicine; PCP Family Medicine; Visit Provider Internal Medicine
DX: C25.0 Malignant neoplasm of head of pancreas (principal)
CPT/HCPCS: 36415; 80053; 86301

== ENCOUNTER → 2019-04-28 08:34 | Outpatient (CLI) | payer OTHER, SELFPAY ==
[2018-10-03 14:03] VITALS: BMI 21.8
[2019-04-28 09:01] LABS: Add Manual Diff / Slide Review NO; Basophils Absolute Auto 0 /uL (0-100); Basophils Percent Auto 0.5 % (0-2); Eosinophils Absolute Auto 100 /uL (0-450); Eosinophils Percent Auto 2.3 % (2-4); Hematocrit 39.8 % (41-53); Hemoglobin 13.5 g/dL (13.5-17.5); Lymphocytes Absolute Auto 1000 /uL (1100-4500); Lymphocytes Percent Auto 17.5 % (25-40); Mean Corpuscular HGB Conc 33.8 % (30-36); Mean Corpuscular Hemoglobin 31.2 PG (26-34); Mean Corpuscular Volume 92.1 fL (80-100); Monocytes Absolute Auto 400 /uL (0-900); Monocytes Percent Auto 6.6 % (3-14); Neutrophils Absolute Auto 4300 /uL (1500-7000); Neutrophils Percent Auto 73.1 % (50-75); Platelet Count 145 X10^3/uL (150-400); Red Blood Cell Count 4.32 X10^6/uL (4.5-5.9); White Blood Cell Count 5.9 X10^3/uL (4.5-11.0)
[2019-04-28 09:15] LABS: Alanine Aminotransferase 11 IU/L (<50); Albumin 4.3 g/dL (3.5-5.0); Alkaline Phosphatase 109 U/L (38-126); Aspartate Aminotransferase 34 IU/L (17-59); BUN Creatinine Ratio 33.3 (6-22); Bilirubin Total 0.5 mg/dL (0.2-1.3); Blood Urea Nitrogen 30 mg/dL (9-20); Calcium 9.4 mg/dL (8.4-10.2); Carbon Dioxide 29 mmol/L (22-32); Chloride 105 mmol/L (98-107); Estimated Glomerular Filt Rate > 60.0 mL/min (>60); Globulin 2.2 g/dL (1.7-4.1); Glucose 107 mg/dL (80-110); HEMOLYSIS 22 (0-50); Potassium 5.1 mmol/L (3.4-5.1); Sodium 141 mmol/L (137-145); Total Protein 6.5 g/dL (6.3-8.2)
[2019-04-30 14:00] LABS: Cancer (Carbohydrate) Ag 19-9 21 U/mL (< 34)
== END ==
PROVIDERS: PCP Family Medicine; Visit Provider Internal Medicine
DX: C25.0 Malignant neoplasm of head of pancreas (principal)
CPT/HCPCS: 36415; 80053; 85025; 86301

== ENCOUNTER → 2019-06-07 09:04 | Outpatient (CLI) | payer OTHER, SELFPAY ==
[2018-10-03 14:03] VITALS: BMI 21.8
[2019-06-07 10:24] LABS: Add Manual Diff / Slide Review NO; Basophils Absolute Auto 0 /uL (0-100); Basophils Percent Auto 0.5 % (0-2); Eosinophils Absolute Auto 100 /uL (0-450); Eosinophils Percent Auto 0.8 % (2-4); Hematocrit 39.7 % (41-53); Hemoglobin 13.7 g/dL (13.5-17.5); Lymphocytes Absolute Auto 1100 /uL (1100-4500); Lymphocytes Percent Auto 17.3 % (25-40); Mean Corpuscular HGB Conc 34.4 % (30-36); Mean Corpuscular Hemoglobin 31.2 PG (26-34); Mean Corpuscular Volume 90.6 fL (80-100); Monocytes Absolute Auto 500 /uL (0-900); Monocytes Percent Auto 7.6 % (3-14); Neutrophils Absolute Auto 4500 /uL (1500-7000); Neutrophils Percent Auto 73.8 % (50-75); Platelet Count 159 X10^3/uL (150-400); Red Blood Cell Count 4.38 X10^6/uL (4.5-5.9); Red Cell Distribution Width 13.6 % (11.6-14.8); White Blood Cell Count 6.1 X10^3/uL (4.5-11.0)
[2019-06-07 10:44] LABS: Alanine Aminotransferase 10 IU/L (<50); Albumin 4.2 g/dL (3.5-5.0); Albumin Globulin Ratio 1.6 (1.0-2.8); Alkaline Phosphatase 99 U/L (38-126); Aspartate Aminotransferase 37 IU/L (17-59); Bilirubin Total 0.5 mg/dL (0.2-1.3); Blood Urea Nitrogen 27 mg/dL (9-20); Calcium 9.5 mg/dL (8.4-10.2); Carbon Dioxide 30 mmol/L (22-32); Chloride 102 mmol/L (98-107); Estimated Glomerular Filt Rate > 60.0 mL/min (>60); Globulin 2.6 g/dL (1.7-4.1); Glucose 74 mg/dL (80-110); HEMOLYSIS < 15 (0-50); Potassium 4.6 mmol/L (3.4-5.1); Sodium 140 mmol/L (137-145); Total Protein 6.8 g/dL (6.3-8.2)
[2019-06-07 11:00] LABS: Vitamin D 25 Hydroxy (D3) 77.4 ng/mL (30.0-100.0)
[2019-06-09 12:38] LABS: Cancer (Carbohydrate) Ag 19-9 25 U/mL (< 34)
== END ==
PROVIDERS: PCP Family Medicine; Visit Provider Internal Medicine
DX: C25.0 Malignant neoplasm of head of pancreas (principal); E55.9 Vitamin D deficiency, unspecified
CPT/HCPCS: 36415; 80053; 82306; 85025; 86301

== ENCOUNTER → 2019-07-05 09:23 | Outpatient (CLI) | payer OTHER, SELFPAY ==
[2018-10-03 14:03] VITALS: BMI 21.8
[2019-07-05 10:08] LABS: Add Manual Diff / Slide Review NO; Basophils Absolute Auto 0 /uL (0-100); Basophils Percent Auto 0.5 % (0-2); Eosinophils Absolute Auto 100 /uL (0-450); Eosinophils Percent Auto 2.8 % (2-4); Hematocrit 39.1 % (41-53); Hemoglobin 13.5 g/dL (13.5-17.5); Lymphocytes Absolute Auto 1100 /uL (1100-4500); Lymphocytes Percent Auto 20.4 % (25-40); Mean Corpuscular HGB Conc 34.6 % (30-36); Mean Corpuscular Hemoglobin 31.1 PG (26-34); Mean Corpuscular Volume 89.9 fL (80-100); Monocytes Absolute Auto 400 /uL (0-900); Monocytes Percent Auto 6.8 % (3-14); Neutrophils Absolute Auto 3800 /uL (1500-7000); Neutrophils Percent Auto 69.5 % (50-75); Platelet Count 152 X10^3/uL (150-400); Red Blood Cell Count 4.34 X10^6/uL (4.5-5.9); Red Cell Distribution Width 13.7 % (11.6-14.8); White Blood Cell Count 5.4 X10^3/uL (4.5-11.0)
[2019-07-05 11:14] LABS: Alanine Aminotransferase 9 IU/L (<50); Albumin 4.2 g/dL (3.5-5.0); Albumin Globulin Ratio 1.8 (1.0-2.8); Alkaline Phosphatase 108 U/L (38-126); Aspartate Aminotransferase 35 IU/L (17-59); Bilirubin Total 0.5 mg/dL (0.2-1.3); Blood Urea Nitrogen 27 mg/dL (9-20); Calcium 9.3 mg/dL (8.4-10.2); Carbon Dioxide 28 mmol/L (22-32); Chloride 104 mmol/L (98-107); Estimated Glomerular Filt Rate > 60.0 mL/min (>60); Globulin 2.3 g/dL (1.7-4.1); Glucose 106 mg/dL (80-110); HEMOLYSIS < 15 (0-50); Potassium 5.3 mmol/L (3.4-5.1); Sodium 142 mmol/L (137-145); Total Protein 6.5 g/dL (6.3-8.2)
[2019-07-08 16:39] LABS: Cancer (Carbohydrate) Ag 19-9 23 U/mL (< 34)
== END ==
PROVIDERS: PCP Family Medicine; Referring Provider Internal Medicine; Visit Provider Internal Medicine
DX: C25.0 Malignant neoplasm of head of pancreas (principal)
CPT/HCPCS: 36415; 80053; 85025; 86301

== ENCOUNTER → 2019-07-14 10:56 | Outpatient (CLI) | payer OTHER, SELFPAY ==
[2018-10-03 14:03] VITALS: BMI 21.8
[2019-07-14 11:36] LABS: Add Manual Diff / Slide Review NO; Basophils Absolute Auto 0 /uL (0-100); Basophils Percent Auto 0.7 % (0-2); Eosinophils Absolute Auto 200 /uL (0-450); Eosinophils Percent Auto 2.5 % (2-4); Hematocrit 40.2 % (41-53); Hemoglobin 13.7 g/dL (13.5-17.5); Lymphocytes Absolute Auto 1200 /uL (1100-4500); Lymphocytes Percent Auto 19.5 % (25-40); Mean Corpuscular HGB Conc 34.1 % (30-36); Mean Corpuscular Hemoglobin 30.3 PG (26-34); Mean Corpuscular Volume 88.8 fL (80-100); Monocytes Absolute Auto 400 /uL (0-900); Monocytes Percent Auto 6.3 % (3-14); Neutrophils Absolute Auto 4300 /uL (1500-7000); Platelet Count 159 X10^3/uL (150-400); Red Blood Cell Count 4.53 X10^6/uL (4.5-5.9); White Blood Cell Count 6.1 X10^3/uL (4.5-11.0)
[2019-07-14 12:02] LABS: Alanine Aminotransferase 8 IU/L (<50); Albumin 4.5 g/dL (3.5-5.0); Albumin Globulin Ratio 1.9 (1.0-2.8); Alkaline Phosphatase 120 U/L (38-126); Aspartate Aminotransferase 35 IU/L (17-59); BUN Creatinine Ratio 32.2 (6-22); Bilirubin Total 0.3 mg/dL (0.2-1.3); Blood Urea Nitrogen 29 mg/dL (9-20); Calcium 9.6 mg/dL (8.4-10.2); Carbon Dioxide 28 mmol/L (22-32); Chloride 104 mmol/L (98-107); Estimated Glomerular Filt Rate > 60.0 mL/min (>60); Globulin 2.4 g/dL (1.7-4.1); Glucose 103 mg/dL (80-110); HEMOLYSIS < 15 (0-50); Potassium 4.7 mmol/L (3.4-5.1); Sodium 142 mmol/L (137-145); Total Protein 6.9 g/dL (6.3-8.2)
[2019-07-16 15:31] LABS: Cancer (Carbohydrate) Ag 19-9 25 U/mL (< 34)
== END ==
PROVIDERS: PCP Family Medicine; Referring Provider Internal Medicine; Visit Provider Internal Medicine
DX: C25.0 Malignant neoplasm of head of pancreas (principal)
CPT/HCPCS: 36415; 80053; 85025; 86301

== ENCOUNTER → 2019-09-02 07:06 | Outpatient (CLI) | payer OTHER, SELFPAY ==
[2018-10-03 14:03] VITALS: BMI 21.8
[2019-09-02 08:51] LABS: Prostate Specific Antigen 0.207 ng/mL (0.10-4.00)
== END ==
PROVIDERS: PCP Family Medicine; Referring Provider Internal Medicine Gastroenterology; Visit Provider Internal Medicine Gastroenterology
DX: Z13.9 Encounter for screening, unspecified (principal)
CPT/HCPCS: 36415; 84153

== ENCOUNTER → 2019-11-07 07:19 | Outpatient (CLI) | payer OTHER, SELFPAY ==
[2018-10-03 14:03] VITALS: BMI 21.8
[2019-11-07 08:17] LABS: Add Manual Diff / Slide Review NO; Basophils Absolute Auto 0 /uL (0-100); Basophils Percent Auto 0.7 % (0-2); Eosinophils Absolute Auto 100 /uL (0-450); Hematocrit 39.3 % (41-53); Hemoglobin 13.2 g/dL (13.5-17.5); Lymphocytes Absolute Auto 1100 /uL (1100-4500); Lymphocytes Percent Auto 24.3 % (25-40); Mean Corpuscular HGB Conc 33.5 % (30-36); Mean Corpuscular Hemoglobin 29.6 PG (26-34); Mean Corpuscular Volume 88.3 fL (80-100); Monocytes Absolute Auto 400 /uL (0-900); Monocytes Percent Auto 8.6 % (3-14); Neutrophils Absolute Auto 3000 /uL (1500-7000); Neutrophils Percent Auto 63.4 % (50-75); Platelet Count 136 X10^3/uL (150-400); Red Blood Cell Count 4.44 X10^6/uL (4.5-5.9); Red Cell Distribution Width 15.9 % (11.6-14.8); White Blood Cell Count 4.7 X10^3/uL (4.5-11.0)
[2019-11-07 08:34] LABS: Alanine Aminotransferase 28 IU/L (<50); Albumin 4.4 g/dL (3.5-5.0); Albumin Globulin Ratio 2.1 (1.0-2.8); Alkaline Phosphatase 106 U/L (38-126); Aspartate Aminotransferase 35 IU/L (17-59); BUN Creatinine Ratio 24.4 (6-22); Bilirubin Total 0.5 mg/dL (0.2-1.3); Blood Urea Nitrogen 21 mg/dL (9-20); Calcium 9.5 mg/dL (8.4-10.2); Carbon Dioxide 32 mmol/L (22-32); Chloride 104 mmol/L (98-107); Estimated Glomerular Filt Rate > 60.0 mL/min (>60); Globulin 2.1 g/dL (1.7-4.1); Glucose 100 mg/dL (80-110); HEMOLYSIS < 15 (0-50); Potassium 5.2 mmol/L (3.4-5.1); Sodium 140 mmol/L (137-145); Total Protein 6.5 g/dL (6.3-8.2)
[2019-11-08 07:38] LABS: Cancer (Carbohydrate) Ag 19-9 9 U/mL (0-35)
== END ==
PROVIDERS: PCP Family Medicine; Referring Provider Internal Medicine; Visit Provider Internal Medicine
DX: C25.0 Malignant neoplasm of head of pancreas (principal)
CPT/HCPCS: 36415; 80053; 85025; 86301

== ENCOUNTER → 2020-01-13 06:57 | Outpatient (CLI) | payer OTHER, SELFPAY ==
[2018-10-03 14:03] VITALS: BMI 21.8
[2020-01-13 08:31] LABS: Add Manual Diff / Slide Review NO; Basophils Absolute Auto 0 /uL (0-100); Basophils Percent Auto 0.5 % (0-2); Eosinophils Absolute Auto 200 /uL (0-450); Hematocrit 41.7 % (41-53); Hemoglobin 13.8 g/dL (13.5-17.5); Lymphocytes Absolute Auto 1400 /uL (1100-4500); Lymphocytes Percent Auto 26.2 % (25-40); Mean Corpuscular HGB Conc 33.1 % (30-36); Mean Corpuscular Hemoglobin 29.8 PG (26-34); Monocytes Absolute Auto 500 /uL (0-900); Monocytes Percent Auto 8.6 % (3-14); Neutrophils Absolute Auto 3400 /uL (1500-7000); Neutrophils Percent Auto 61.7 % (50-75); Platelet Count 149 X10^3/uL (150-400); Red Blood Cell Count 4.63 X10^6/uL (4.5-5.9); Red Cell Distribution Width 15.7 % (11.6-14.8); White Blood Cell Count 5.5 X10^3/uL (4.5-11.0)
[2020-01-13 08:50] LABS: Alanine Aminotransferase 19 IU/L (<50); Albumin 4.5 g/dL (3.5-5.0); Alkaline Phosphatase 113 U/L (38-126); Aspartate Aminotransferase 37 IU/L (17-59); BUN Creatinine Ratio 17.6 (6-22); Bilirubin Total 0.6 mg/dL (0.2-1.3); Blood Urea Nitrogen 19 mg/dL (9-20); Calcium 9.6 mg/dL (8.4-10.2); Carbon Dioxide 33 mmol/L (22-32); Chloride 103 mmol/L (98-107); Estimated Glomerular Filt Rate > 60.0 mL/min (>60); Globulin 2.2 g/dL (1.7-4.1); Glucose 95 mg/dL (80-110); HEMOLYSIS < 15 (0-50); Potassium 5.5 mmol/L (3.4-5.1); Sodium 140 mmol/L (137-145); Total Protein 6.7 g/dL (6.3-8.2)
[2020-01-14 06:26] LABS: Cancer (Carbohydrate) Ag 19-9 8 U/mL (0-35)
== END ==
PROVIDERS: PCP Family Medicine; Referring Provider Internal Medicine; Visit Provider Internal Medicine
DX: C25.0 Malignant neoplasm of head of pancreas (principal)
CPT/HCPCS: 36415; 80053; 85025; 86301

== ENCOUNTER → 2020-03-30 06:55 | Outpatient (CLI) | payer OTHER, SELFPAY ==
[2018-10-03 14:03] VITALS: BMI 21.8
[2020-03-30 07:34] LABS: Alanine Aminotransferase 18 IU/L (<50); Albumin 4.2 g/dL (3.5-5.0); Albumin Globulin Ratio 1.6 (1.0-2.8); Alkaline Phosphatase 102 U/L (38-126); Aspartate Aminotransferase 32 IU/L (17-59); BUN Creatinine Ratio 25.6 (6-22); Bilirubin Total 0.5 mg/dL (0.2-1.3); Blood Urea Nitrogen 23 mg/dL (9-20); Calcium 9.1 mg/dL (8.4-10.2); Carbon Dioxide 30 mmol/L (22-32); Chloride 105 mmol/L (98-107); Estimated Glomerular Filt Rate > 60.0 mL/min (>60); Globulin 2.6 g/dL (1.7-4.1); Glucose 97 mg/dL (80-110); HEMOLYSIS < 15 (0-50); Potassium 4.7 mmol/L (3.4-5.1); Sodium 139 mmol/L (137-145); Total Protein 6.8 g/dL (6.3-8.2)
[2020-03-31 06:36] LABS: Cancer (Carbohydrate) Ag 19-9 9 U/mL (0-35)
== END ==
PROVIDERS: PCP Family Medicine; Referring Provider Internal Medicine; Visit Provider Internal Medicine
DX: C25.9 Malignant neoplasm of pancreas, unspecified (principal)
CPT/HCPCS: 36415; 80053; 86301

== ENCOUNTER → 2020-05-12 06:53 | Outpatient (CLI) | payer OTHER, SELFPAY ==
[2018-10-03 14:03] VITALS: BMI 21.8
[2020-05-12 08:43] LABS: Add Manual Diff / Slide Review NO; Basophils Absolute Auto 0 /uL (0-100); Basophils Percent Auto 0.5 % (0-2); Eosinophils Absolute Auto 200 /uL (0-450); Eosinophils Percent Auto 3.2 % (2-4); Hematocrit 42.1 % (41-53); Hemoglobin 13.8 g/dL (13.5-17.5); Lymphocytes Absolute Auto 1300 /uL (1100-4500); Lymphocytes Percent Auto 25.2 % (25-40); Mean Corpuscular HGB Conc 32.8 % (30-36); Mean Corpuscular Hemoglobin 29.9 PG (26-34); Monocytes Absolute Auto 400 /uL (0-900); Monocytes Percent Auto 7.3 % (3-14); Neutrophils Absolute Auto 3300 /uL (1500-7000); Neutrophils Percent Auto 63.8 % (50-75); Platelet Count 165 X10^3/uL (150-400); Red Blood Cell Count 4.63 X10^6/uL (4.5-5.9); Red Cell Distribution Width 14.6 % (11.6-14.8); White Blood Cell Count 5.1 X10^3/uL (4.5-11.0)
[2020-05-12 12:58] LABS: Alanine Aminotransferase 22 IU/L (<50); Albumin Globulin Ratio 1.6 (1.0-2.8); Alkaline Phosphatase 91 U/L (38-126); Aspartate Aminotransferase 32 IU/L (17-59); BUN Creatinine Ratio 21.5 (6-22); Bilirubin Total 0.3 mg/dL (0.2-1.3); Blood Urea Nitrogen 20 mg/dL (9-20); Calcium 9.4 mg/dL (8.4-10.2); Carbon Dioxide 33 mmol/L (22-32); Chloride 104 mmol/L (98-107); Estimated Glomerular Filt Rate > 60.0 mL/min (>60); Globulin 2.5 g/dL (1.7-4.1); Glucose 103 mg/dL (80-110); HEMOLYSIS < 15 (0-50); Potassium 5.1 mmol/L (3.4-5.1); Sodium 139 mmol/L (137-145); Total Protein 6.5 g/dL (6.3-8.2)
[2020-05-12 13:59] LABS: Folate > 20.0 ng/mL (2.76-20.0); Vitamin B12 434 pg/mL (239-931)
== END ==
PROVIDERS: PCP Family Medicine; Referring Provider Family Medicine; Visit Provider Family Medicine
DX: R53.82 Chronic fatigue, unspecified (principal); R53.1 Weakness
CPT/HCPCS: 36415; 80053; 82607; 82746; 85025

== ENCOUNTER → 2020-06-03 06:56 | Outpatient (CLI) | payer OTHER, SELFPAY ==
[2018-10-03 14:03] VITALS: BMI 21.8
[2020-06-03 08:58] LABS: Thyroid Stimulating Hormone 2.91 uIU/mL (0.47-4.68)
== END ==
PROVIDERS: PCP Family Medicine; Referring Provider Family Medicine; Visit Provider Family Medicine
DX: R53.1 Weakness (principal)
CPT/HCPCS: 36415; 84443

== ENCOUNTER → 2020-06-04 15:26 | Outpatient (CLI) | payer OTHER, SELFPAY ==
[2018-10-03 14:03] VITALS: BMI 21.8
[2020-06-04 15:47] LABS: COVID19 -Nasal RAPID Negative (Negative)
== END ==
PROVIDERS: PCP Family Medicine; Visit Provider Physician Assistant
DX: R42 Dizziness and giddiness (principal); R52 Pain, unspecified; R53.1 Weakness; R53.83 Other fatigue
CPT/HCPCS: 87635

== ENCOUNTER → 2020-06-09 06:57 | Outpatient (CLI) | payer OTHER, SELFPAY ==
[2018-10-03 14:03] VITALS: BMI 21.8
[2020-06-09 08:19] LABS: Add Manual Diff / Slide Review NO; Basophils Absolute Auto 0 /uL (0-100); Basophils Percent Auto 0.4 % (0-2); Eosinophils Absolute Auto 100 /uL (0-450); Eosinophils Percent Auto 2.7 % (2-4); Hematocrit 40.5 % (41-53); Hemoglobin 13.2 g/dL (13.5-17.5); Lymphocytes Absolute Auto 1100 /uL (1100-4500); Lymphocytes Percent Auto 22.4 % (25-40); Mean Corpuscular HGB Conc 32.6 % (30-36); Mean Corpuscular Hemoglobin 29.5 PG (26-34); Mean Corpuscular Volume 90.4 fL (80-100); Monocytes Absolute Auto 300 /uL (0-900); Monocytes Percent Auto 6.9 % (3-14); Neutrophils Absolute Auto 3200 /uL (1500-7000); Neutrophils Percent Auto 67.6 % (50-75); Platelet Count 163 X10^3/uL (150-400); Red Blood Cell Count 4.48 X10^6/uL (4.5-5.9); Red Cell Distribution Width 14.4 % (11.6-14.8); White Blood Cell Count 4.7 X10^3/uL (4.5-11.0)
[2020-06-09 08:36] LABS: Alanine Aminotransferase 14 IU/L (<50); Albumin Globulin Ratio 1.7 (1.0-2.8); Alkaline Phosphatase 122 U/L (38-126); Aspartate Aminotransferase 33 IU/L (17-59); BUN Creatinine Ratio 18.6 (6-22); Bilirubin Total 0.3 mg/dL (0.2-1.3); Blood Urea Nitrogen 16 mg/dL (9-20); Calcium 9.1 mg/dL (8.4-10.2); Carbon Dioxide 34 mmol/L (22-32); Chloride 104 mmol/L (98-107); Estimated Glomerular Filt Rate > 60.0 mL/min (>60); Globulin 2.3 g/dL (1.7-4.1); Glucose 111 mg/dL (80-110); HEMOLYSIS < 15 (0-50); Potassium 4.7 mmol/L (3.4-5.1); Sodium 139 mmol/L (137-145); Total Protein 6.3 g/dL (6.3-8.2)
[2020-06-09 08:52] LABS: Erythrocyte Sedimentation Rate 7 MM/HR (0-15)
== END ==
PROVIDERS: PCP Family Medicine; Referring Provider Family Medicine; Visit Provider Family Medicine
DX: R53.1 Weakness (principal); R52 Pain, unspecified
CPT/HCPCS: 36415; 80053; 85025; 85651

== ENCOUNTER → 2020-06-21 09:01 | Outpatient (CLI) | payer OTHER, SELFPAY ==
[2018-10-03 14:03] VITALS: BMI 21.8
--- NOTE | 2020-06-21 09:03 | DI.MRI.S_ITS ---
PROCEDURE: MR HEAD/BRAIN WO/W CON INDICATIONS: Dizziness and giddiness TECHNIQUE: Noncontrast axial T1 spin echo, axial T2 fast spin echo, sagittal and axial FLAIR, coronal T2 fast spin echo, axial gradient echo, axial diffusion and ADC through the brain. After the administration of contrast, axial and coronal T1 spin echo with fat saturation through the brain. COMPARISON: [facility], CT, CT HEAD/BRAIN WO CON, 10/03/2018, 7:26. [facility], MR, BRAIN WITH AND WITHOUT CONTRAS, 05/21/2008, 13:17. FINDINGS: Image quality: Diagnostic, with note made of motion artifact. CSF spaces: Basal cisterns are patent. No extra-axial fluid collections. Ventricles are normal in size and shape. Brain: No midline shift. No intracranial bleeds or masses. No abnormal intracranial enhancement. There is cerebral volume loss for age. There is periventricular white matter chronic small vessel ischemic change. The brainstem appears normal. Diffusion-weighted images demonstrate no acute ischemic insults. No chronic ischemic insults. Normal intravascular flow voids are present. In this patient with this given history, scrutiny is given to cerebellopontine angle cisterns and to the internal auditory canals. To the limits of this standard protocol study, no masses or abnormal enhancement can be seen within these regions. Skull and face: Calvarial marrow is normal in signal. Orbits appear normal. Sinuses: Sinuses and mastoids appear clear. IMPRESSION: No imaging explanation is found for this patient's presenting symptoms. No masses or abnormal enhancement can be seen. Dictated by: Jesus Viramontes M.D. on 06/21/2020 at 9:38 Approved by: Jesus Viramontes M.D. on 06/21/2020 at 9:40
== END ==
PROVIDERS: PCP Family Medicine; Referring Provider Family Medicine; Visit Provider Family Medicine
DX: R42 Dizziness and giddiness (principal); R26.89 Other abnormalities of gait and mobility; R53.1 Weakness
CPT/HCPCS: 70553

== ENCOUNTER 2020-09-13 08:29 | Emergency (ER) | payer OTHER, SELFPAY ==
[2018-10-03 14:03] VITALS: BMI 21.8
[2020-09-13 08:31] VITALS: BP 119/74; PULSE 62; RESP 18; TEMP 36.7; O2SAT 99; BMI 24.1
--- NOTE | 2020-09-13 08:41 | ED.GENADULT ---
HPI - General Adult General Chief complaint: Abdominal Pain Stated complaint: Abd Pain Time Seen by Provider: 09/13/20 08:32 Source: patient Mode of arrival: EMS Limitations: no limitations History of Present Illness HPI narrative: Patient is a 64-year-old male here for evaluation of lower abdominal discomfort. He states he has been having discomfort like this off and on for the past 4 years after a Whipple procedure secondary to pancreatic cancer. He states he has been seen by his primary doctor and GI. He states that they have been unable to identify what is causing his discomfort. He has a appointment with his primary doctor tomorrow to discuss another referral for a 2nd opinion. He has never seen Urology. He states that it is a sharp cramping discomfort that happens every several weeks. He states that it normally only lasts approximately 20 minutes off and on and then resolves but this morning it seems to last longer. He does have Dilaudid at home which he took and that does not seem to be improving his symptoms. He is afebrile. States that he is somewhat constipated but did have a bowel movement this morning that did not changes abdominal pain. No nausea vomiting. No fevers. No testicular pain. Related Data Home Medications Medication Instructions Recorded Confirmed Metamucil Fiber Singles 1 ea PO DIRECTED #0 06/22/16 06/04/20 bupropion HCl 300 mg PO DAILY #0 11/07/16 06/04/20 adapalene [Differin] 1 sunny TOPICAL BEDTIME #0 06/02/17 06/04/20 docusate sodium 2 cap PO DAILY #60 cap 06/29/17 06/04/20 clonazepam 1 mg tablet 3 mg PO BEDTIME tab 01/01/18 06/04/20 sulfacetamide sodium 10 % topical 1 applictn TOP BID 01/01/18 06/04/20 cleanser, gel Finacea 1 applic TOPICAL BID 02/01/18 06/04/20 ascorbic acid (vitamin C) [Vitamin 500 mg PO DAILY 02/01/18 06/04/20 C] benzoyl peroxide [Panoxyl] 1 applic TOPICAL QAM 02/01/18 06/04/20 cholecalciferol (vitamin D3) 4,000 - 6,000 unit PO DAILY 02/01/18 06/04/20 [Vitamin D3] coenzyme Q10 [CoQ-10] 300 mg PO DAILY 02/01/18 06/04/20 melatonin 10 mg PO BEDTIME 02/01/18 06/04/20 minoxidil 1 ml TOPICAL DIRECTED 02/01/18 06/04/20 tamsulosin [Flomax] 0.8 mg PO BEDTIME 02/01/18 06/04/20 Ocuvite 1 cap PO DAILY 10/03/18 06/04/20 aluminum chloride in alcohol 1 applic TOPICAL DAILY 10/03/18 06/04/20 finasteride 5 mg PO DAILY 10/03/18 06/04/20 fluoxetine 60 mg PO DAILY 10/03/18 06/04/20 lamotrigine 300 mg PO DAILY 10/03/18 06/04/20 ogqheg-[id number]-[id number] 1 cap PO TID 10/03/18 06/04/20 montelukast 10 mg PO DAILY 10/03/18 06/04/20 quetiapine 150 mg PO BEDTIME 10/03/18 06/04/20 Previous Rx's Medication Instructions Recorded dapsone 5 % topical gel 1 applictn TOP BID #60 gram 09/18/17 metronidazole 250 mg PO TID #21 tab 10/05/18 carbidopa ER 50 mg-levodopa 200 mg 1 tab PO QID #120 tab 10/17/18 tablet,extended release Allergies Allergy/AdvReac Type Severity Reaction Status Date / Time promethazine [From PHENERGAN] AdvReac Severe tardive Verified 06/04/20 15:14 dyskinesia like effeect Review of Systems Constitutional Constitutional: Denies fatigue, Denies fever(s) and Denies headache(s) Eyes Eyes: Denies change in vision ENT Ears, Nose, Mouth, and Throat: Denies headache(s) Cardiovascular Cardiovascular: Denies chest pain and Denies dyspnea Respiratory Respiratory: Denies dyspnea Gastrointestinal Gastrointestinal: Reports abdominal pain, Denies change in bowel habits, Reports constipation, Denies nausea and Denies vomiting Genitourinary Genitourinary: Denies dysuria, Denies testicular pain, Denies urinary frequency and Denies urinary hesitancy Genitourinary: Denies urinary frequency, Denies dysuria and Denies urinary hesitancy Musculoskeletal Musculoskeletal: Denies back pain and Denies myalgias Integumentary/Breasts Skin/Breast: Denies lesions and Denies rash Neurologic Neurologic: Denies behavioral changes and Denies headache(s) Psychiatric Psychiatric: Denies behavioral changes Endocrine Endocrine: Denies fatigue Hematologic/Lymphatic On Anticoagulants: No Allergic/Immunologic Allergic/Immunologic: Denies urticaria Patient History Medical History Back pain BPH (benign prostatic hyperplasia) Depression Epigastric pain Fatigue History of Lyme disease (07/08/15) Idiopathic pancreatitis Pancreatic cancer Pancreatic insufficiency Tourette's syndrome Tremor Uncomplicated opioid dependence Urinary retention Whipple disease Surgical History History of partial pancreatectomy S/P ERCP Family History (Updated 10/03/18 @ 15:59 by Mary Baird DO) Sister Carmelita's Mother Breast cancer Bladder cancer Father Immunoblastic lymphoma Social History marital status: unmarried,single household members: none lives independently: Yes Smoking Status: Never smoker alcohol intake: never Smoking Status: Never smoker Substance Use Type: does not use Exam Initial Vital Signs Initial Vital Signs: Vital Signs Temperature 98.1 F 09/13/20 08:31 Pulse Rate 62 09/13/20 08:31 Respiratory Rate 18 09/13/20 08:31 Blood Pressure 119/74 09/13/20 08:31 Pulse Oximetry 99 09/13/20 08:31 Const General: cooperative and comfortable Limitations: mental status not altered HENMT Head: normal to inspection and normocephalic Eyes General: appearance normal, both eyes and all related structures Resp Effort & Inspection: normal respiratory effort Auscultation: clear to auscultation bilaterally Cardio Rate: regular rate Rhythm: regular rhythm GI Inspection: non-distended Palpation: soft, No firm and No tender Back/Spine/Pelvis Back: No CVA tenderness Skin Lesions: no lesions Rashes: no rashes Neuro General: patient alert, patient awake and patient oriented x3 Cognition: normal cognition Speech: speech normal Extrem General: normal to inspection and capillary refill normal Psych Appearance: grossly normal and well kempt Scores GCS Thanh coma scale eye opening: Spontaneous [place] coma scale verbal response: Orientated [place] coma scale motor response: Obey commands [place] coma scale total score: 15 Course Orders Ordered: Discontinued Medications Hydromorphone HCl (Hydromorphone 1 Mg Inj) 1 mg IM NOW ONE Stop: 09/13/20 09:23 Last Admin: 09/13/20 09:49 Dose: 1 mg Documented by: MARUONER Vital Signs Vital signs: Vital Signs - 8 hr 09/13/20 08:31 Temperature 98.1 F Pulse Rate 62 Respiratory Rate 18 Blood Pressure 119/74 Pulse Oximetry 99 Medical Decision Making Lab Data Lab results reviewed: Yes I reviewed the patient's lab results. Labs: Urine Dip Bedside Urine Glucose Negative Bedside Urine Bilirubin - Negative Bedside Urine Ketone - Negative Urine Specific [place] 1.015 Bedside Urine Occult Blood - Negative Bedside Urine pH 6.5 Bedside Urine Protein - Negative Bedside Urine Urobilinogen - Negative Bedside Urine Nitrite - Negative Bedside Urine Leukocytes - Negative Esterase Point of care testing: Urine Dip Bedside Urine Glucose Negative Bedside Urine Bilirubin - Negative Bedside Urine Ketone - Negative Urine Specific [place] 1.015 Bedside Urine Occult Blood - Negative Bedside Urine pH 6.5 Bedside Urine Protein - Negative Bedside Urine Urobilinogen - Negative Bedside Urine Nitrite - Negative Bedside Urine Leukocytes - Negative Esterase MDM Narrative Medical decision making narrative: Patient does have a benign abdominal exam. His urine is negative. He has no testicular symptoms. The symptoms that he came with today he has had in the past and has had multiple workups and CT scans. There has been no exact etiology for his symptoms found. Feel that we can hold on further workup for now. He does have a follow-up with his primary doctor tomorrow to discuss further workup of this. He was given return precautions and follow-up instructions. He expressed understanding and agreement. Discharge Plan Departure Patient Disposition: Home Clinical Impression: Abdominal pain Instructions: DI for Abdominal Pain-Adult Activity Restrictions/Additional Instructions: Recommend that you continue all of your medications as directed. Keep all of your scheduled medical appointments to include the appointment with your primary doctor tomorrow. Return to the emergency department for any new or worsening symptoms Prescriptions: No Action clonazepam 1 mg tablet 3 mg PO BEDTIME RF: 0 sulfacetamide sodium 10 % cleanser, gel 1 applictn TOP BID RF: 0 dapsone 5 % gel 1 applictn TOP BID Qty: 60 RF: 0 Metamucil Fiber Singles 3.4 gram Powder In Packet 1 ea PO DIRECTED Qty: 0 RF: 0 bupropion HCl 300 MG tablet extended release 24 hr 300 mg PO DAILY Qty: 0 RF: 0 adapalene [Differin] 0.3 % gel 1 sunny Topical BEDTIME Qty: 0 RF: 0 docusate sodium 250 MG capsule 2 cap PO DAILY Qty: 60 RF: 2 carbidopa-levodopa 50-200 mg tablet extended release 1 tab PO QID Qty: 120 RF: 0 benzoyl peroxide [Panoxyl] 10 % Cleanser 1 applic Topical QAM RF: 0 minoxidil 5 % Solution 1 ml TOPICAL DIRECTED RF: 0 ascorbic acid (vitamin C) [Vitamin C] 500 mg Tablet 500 mg PO DAILY RF: 0 coenzyme Q10 [CoQ-10] 100 mg Capsule 300 mg PO DAILY RF: 0 cholecalciferol (vitamin D3) [Vitamin D3] 2,000 unit Capsule 4,000 - 6,000 unit PO DAILY RF: 0 melatonin 10 mg Tablet 10 mg PO BEDTIME RF: 0 Finacea 15 % Foam 1 applic Topical BID RF: 0 tamsulosin [Flomax] 0.4 MG capsule 0.8 mg PO BEDTIME RF: 0 lamotrigine 150 mg tablet 300 mg PO DAILY RF: 0 quetiapine 100 mg tablet 150 mg PO BEDTIME RF: 0 aluminum chloride in alcohol 6.25 % solution 1 applic topical DAILY RF: 0 fluoxetine 20 mg capsule 60 mg PO DAILY RF: 0 enohjz-oqopqzvl-tcutquv 24,000-76,000 -120,000 unit capsule,delayed release(DR/EC) 1 cap PO TID RF: 0 montelukast 10 MG tablet 10 mg PO DAILY RF: 0 finasteride 5 mg tablet 5 mg PO DAILY RF: 0 Ocuvite 1 cap PO DAILY RF: 0 metronidazole 500 mg tablet 250 mg PO TID Qty: 21 RF: 0 Referrals: Leobardo Phillips MD [Primary Care Provider] -
[2020-09-13] MEDS: HYDROMORPHONE 1 MG INJ IM (09:49)
[2020-09-13 10:18] VITALS: BP 123/70; PULSE 73; RESP 16; O2SAT 99
--- NOTE | 2020-09-13 10:36 | PC.NURSE ---
pt calling friend for a ride home.
== END 2020-09-13 10:43 | disposition home or self-care (01) ==
PROVIDERS: Emergency Provider Emergency Medicine; PCP Family Medicine
DX: R10.30 Lower abdominal pain, unspecified (principal)
CPT/HCPCS: 81003; 96372; 99283; J1170

== ENCOUNTER → 2020-11-18 06:54 | Outpatient (CLI) | payer OTHER, SELFPAY ==
[2018-10-03 14:03] VITALS: BMI 21.8
[2020-11-18 09:58] LABS: Prostate Specific Antigen 0.183 ng/mL (0.10-4.00)
== END ==
PROVIDERS: PCP Family Medicine; Referring Provider Family Medicine; Visit Provider Family Medicine
DX: N40.1 Benign prostatic hyperplasia with lower urinary tract symptoms (principal); R33.8 Other retention of urine
CPT/HCPCS: 36415; 84153

== ENCOUNTER → 2021-02-14 09:52 | Outpatient (CLI) | payer OTHER, SELFPAY ==
[2020-12-03 10:00] VITALS: BMI 21.8
[2021-02-14 11:42] LABS: COVID19 -Nasal RAPID Negative (Negative)
== END ==
PROVIDERS: PCP Family Medicine; Visit Provider Nurse Practitioner Family
DX: Z20.822 Contact with and (suspected) exposure to COVID-19 (principal); Z01.812 Encounter for preprocedural laboratory examination
CPT/HCPCS: 87635; C9803

== ENCOUNTER 2021-02-16 11:28 | Day surgery (SDC) | payer OTHER, SELFPAY ==
[2020-12-03 10:00] VITALS: BMI 21.8
[2021-02-16] VITALS (8 sets, daily range): BP systolic 105–114; BP diastolic 72–80; PULSE 78–91; RESP 12–24; TEMP 36.2–37.1; O2SAT 91–98; BMI 24.5
--- NOTE | 2021-02-16 | PATH_ITS ---
[facility] Accession Number: [id number] . 01 Material submitted: . stomach - STOMACH RUMINANT . 01 Diagnosis: Stomach, Biopsy: Gastric mucosa with mild chronic inflammation and features of reactive gastropathy. Negative for Helicobacter organisms by immunohistochemistry. Negative for intestinal metaplasia. Negative for dysplasia or malignancy. [facility] 02/18/2021 1652 Local . 01 Electronically signed: . Marcello Gonzalez MD, PhD, Pathologist NPI- [id number] . 01 Gross description: . STOMACH RUMINANT: Received in formalin are 3 fragment(s) of perdomo, soft tissue measuring 0.4 x 0.2 x 0.2 cm to 0.3 x 0.2 x 0.2 cm submitted entirely in 1 cassette(s) /REILLY 02/17/2021 0450 Local . 01 Microscopic: . An immunohistochemical stain was performed to evaluate for Helicobacter organisms and is negative. The control stain showed appropriate reactivity. . * This test was developed and its performance characteristics determined by [facility]. It has not been cleared or approved by the U.S. Food and Drug Administration. The FDA has determined that such clearance or approval is not necessary. This test is used for clinical purposes. It should not be regarded as investigational or for research. . 01 Pathologist provided ICD-10: R10.9, K29.70 . 01 CPT . 591233, N04003 Performed at: 01 [facility] [address] [place] [address], [place], [place] [id number] MD Zaheer Noel MD Phone: [phone]
[2021-02-16] MEDS: SODIUM CHLORIDE 0.9% 1,000 ML 84 ML IV (11:45)
--- NOTE | 2021-02-16 12:21 | PM.HP.1 ---
History of Present Illness History of Present Illness Date Patient Seen: 02/16/21 Chief complaint: EGD W/POSS BX Narrative: History of pancreatic cancer status post Whipple procedure with worsening abdominal pain. Surgical consultation felt this may be an internal hernia and may require exploratory laparotomy. Enteroscopy being performed to try to reach the anastomosis to ensure no abnormalities present Patient History Medical History (Updated 12/31/20 @ 15:23 by Chris Ortega MD) Asthma Back pain BPH (benign prostatic hyperplasia) Depression Epigastric pain Family history of bladder cancer Fatigue History of Lyme disease (07/08/15) Idiopathic pancreatitis Nocturia Pancreatic cancer Pancreatic insufficiency Skin cancer Tourette's syndrome Tremor Uncomplicated opioid dependence Urinary retention Whipple disease Surgical History (Updated 12/31/20 @ 15:23 by Chris Ortega MD) H/O vasectomy H/O Whipple procedure History of partial pancreatectomy History of Whipple procedure S/P ERCP Family & Social History Family History Sister Tourette's Mother Breast cancer Bladder cancer Father Immunoblastic lymphoma Social History: household members none lives independently Yes Tobacco & Substance use: Smoking Status Never smoker alcohol intake never alcohol intake frequency 0-2 drinks per day Substance Use Type does not use Meds Home Medications and Allergies Home Medications Medication Instructions Recorded Confirmed Type bupropion HCl 300 mg 24 hr tablet, 300 mg PO DAILY #0 11/07/16 02/16/21 History extended release dapsone 5 % topical gel 1 applictn TOP BID #60 gram 09/18/17 02/16/21 Rx clonazepam 1 mg tablet 3 mg PO BEDTIME tab 01/01/18 02/16/21 History ascorbic acid (vitamin C) 500 mg 500 mg PO DAILY 02/01/18 02/16/21 History tablet (Vitamin C) cholecalciferol (vitamin D3) 50 4,000 - 6,000 unit PO DAILY 02/01/18 02/16/21 History mcg (2,000 unit) capsule (Vitamin D3) coenzyme Q10 100 mg capsule 300 mg PO DAILY 02/01/18 02/16/21 History (CoQ-10) melatonin 10 mg tablet 10 mg PO BEDTIME 02/01/18 02/16/21 History minoxidil 5 % topical solution 1 ml TOPICAL DIRECTED 02/01/18 02/16/21 History tamsulosin 0.4 mg capsule (Flomax) 0.8 mg PO BEDTIME 02/01/18 02/16/21 History Ocuvite 1 cap PO DAILY 10/03/18 02/16/21 History finasteride 5 mg tablet 5 mg PO DAILY 10/03/18 02/16/21 History lamotrigine 150 mg tablet 300 mg PO DAILY 10/03/18 02/16/21 History montelukast 10 mg tablet 10 mg PO DAILY 10/03/18 02/16/21 History carbidopa ER 50 mg-levodopa 200 mg 1 tab PO QID #120 tab 10/17/18 02/16/21 Rx tablet,extended release fluoxetine 20 mg capsule 40 mg PO BID cap 12/31/20 02/16/21 History fluticasone propionate 50 2 spray INTRANASAL DAILY 12/31/20 02/16/21 History mcg/actuation nasal spray,suspension (Flonase Allergy Relief) gabapentin 600 mg tablet 600 mg PO BID tab 12/31/20 02/16/21 History hydromorphone PO PRN 12/31/20 12/31/20 History minocycline 50 mg capsule 50 mg PO DAILY 12/31/20 02/16/21 History polyethylene glycol 3350 17 gram 17 g PO BID 12/31/20 02/16/21 History oral powder packet (Miralax) quetiapine 100 mg tablet 200 mg PO BEDTIME tab 12/31/20 02/16/21 History vitamin K2 100 mcg capsule 100 mcg PO DAILY 12/31/20 02/16/21 History Allergies Allergy/AdvReac Type Severity Reaction Status Date / Time promethazine [From PHENERGAN] AdvReac Severe tardive Verified 02/16/21 11:40 dyskinesia like effeect Exam Vital Signs (past 8 hours): - 02/16/21 11:46 Temperature 97.2 F L Pulse Rate 84 Respiratory Rate 20 Blood Pressure 114/74 Pulse Oximetry 96 Oxygen Delivery Method Room Air Narrative Exam Narrative: Oropharynx free of lesions Chest clear to auscultation percussion Cardiac exam reveals no S3 or murmur Assessment & Plan Assessment & Plan narrative: Abdominal pain post Whipple for pancreatic cancer. Need to evaluate anastomosis to rule out abnormality. Risks, benefits, alternatives been explained. Time Spent With Patient Critical Care time: I spent a total of [] minutes of critical care time on this patient's care today; this time is exclusive of procedural time.
--- NOTE | 2021-02-16 12:22 | P.OP.EGD_ITS ---
Operative Date/Time/Diagnoses Date of procedure: 02/16/21 Pre-op diagnosis: See indication and findings Procedure & Clinicians Study performed: Enteroscopy Indications: Abdominal pain and need to evaluate small bowel anastomoses status post Whipple procedure Surgeon: Redd Hood Procedure Notes Procedure in detail: After informed consent was obtained the patient was placed in left lateral decubitus position. The video colonoscope was introduced in the oropharynx and with the patient's help swelled into the esophagus. The esophagus stomach and duodenum and jejunum were carefully examined. On withdrawal careful evaluation was performed. The scope was removed. The patient of the procedure well. Blood loss none Complications none Findings 1. Normal esophagus 2. Beefy red gastric remnant biopsies taken. Typical appearance post partial gastrectomy 3. Small opening just past the gastroenteric anastomosis. I was able to follow this down at least 30 cm to what appeared to be the end of this afferent limb. I was then able however to identify the the biliary anastomoses 4. Distal/efferent limb evaluated 55 cm past the gastroenteric anastomosis and was completely normal. Mr. Espinosa will follow up with Dr. Valentin and [facility] for further workup/treatment. He will take a copy of this report and photographs with him.
--- NOTE | 2021-02-16 12:52 | SUR.PHASEI ---
Received to PACU after MAC for EGD. Report from MANUELA Parham and SRIRAM Carrillo.
== END 2021-02-16 14:10 | disposition home or self-care (01) ==
PROVIDERS: PCP Family Medicine; Referring Provider Internal Medicine Gastroenterology; Visit Provider Internal Medicine Gastroenterology
PROC: 0DJ08ZZ Inspection of Upper Intestinal Tract, Via Natural or Artificial Opening Endoscopic (ICD-10-PCS; CPT 43235; principal; 2021-02-16 12:30)
DX: R10.33 Periumbilical pain (principal); C25.9 Malignant neoplasm of pancreas, unspecified; K31.9 Disease of stomach and duodenum, unspecified; Z98.0 Intestinal bypass and anastomosis status
CPT/HCPCS: 44360; J2704

== ENCOUNTER → 2021-05-17 08:28 | Outpatient (CLI) | payer MEDICARE, OTHER, SELFPAY ==
[2020-12-03 10:00] VITALS: BMI 21.8
[2021-05-17 09:45] LABS: Add Manual Diff / Slide Review NO; Basophils Absolute Auto 0 /uL (0-100); Basophils Percent Auto 0.5 % (0-2); Eosinophils Absolute Auto 100 /uL (0-450); Eosinophils Percent Auto 2.4 % (2-4); Hematocrit 41.8 % (41-53); Hemoglobin 14.2 g/dL (13.5-17.5); Lymphocytes Absolute Auto 1100 /uL (1100-4500); Lymphocytes Percent Auto 19.3 % (25-40); Mean Corpuscular HGB Conc 33.9 % (30-36); Mean Corpuscular Hemoglobin 29.6 PG (26-34); Mean Corpuscular Volume 87.2 fL (80-100); Monocytes Absolute Auto 400 /uL (0-900); Monocytes Percent Auto 6.5 % (3-14); Neutrophils Absolute Auto 4000 /uL (1500-7000); Neutrophils Percent Auto 71.3 % (50-75); Platelet Count 160 X10^3/uL (150-400); Red Blood Cell Count 4.79 X10^6/uL (4.5-5.9); Red Cell Distribution Width 15.5 % (11.6-14.8); White Blood Cell Count 5.6 X10^3/uL (4.5-11.0)
[2021-05-17 10:15] LABS: Erythrocyte Sedimentation Rate 1 MM/HR (0-15)
[2021-05-17 10:18] LABS: Alanine Aminotransferase 14 IU/L (<50); Albumin 4.4 g/dL (3.5-5.0); Albumin Globulin Ratio 1.9 (1.0-2.8); Alkaline Phosphatase 91 U/L (38-126); Aspartate Aminotransferase 32 IU/L (17-59); BUN Creatinine Ratio 28.6 (6-22); Bilirubin Total 0.5 mg/dL (0.2-1.3); Blood Urea Nitrogen 26 mg/dL (9-20); Calcium 9.7 mg/dL (8.4-10.2); Carbon Dioxide 32 mmol/L (22-32); Chloride 104 mmol/L (98-107); Estimated Glomerular Filt Rate > 60.0 mL/min (>60); Globulin 2.3 g/dL (1.7-4.1); Glucose 88 mg/dL (80-110); HEMOLYSIS < 15 (0-50); Magnesium 2.2 mg/dL (1.6-2.3); Potassium 4.9 mmol/L (3.4-5.1); Sodium 139 mmol/L (137-145); Total Protein 6.7 g/dL (6.3-8.2)
[2021-05-17 10:21] LABS: High Sensitivity CRP - Cardiac 0.4 mg/L (1.0-3.0)
[2021-05-17 10:35] LABS: Vitamin D 25 Hydroxy (D3) 98.8 ng/mL (30.0-100.0)
[2021-05-17 10:49] LABS: Thyroid Stimulating Hormone 3.12 uIU/mL (0.47-4.68)
== END ==
PROVIDERS: PCP Family Medicine; Referring Provider Ophthalmology; Visit Provider Ophthalmology
DX: C25.3 Malignant neoplasm of pancreatic duct (principal); G24.5 Blepharospasm
CPT/HCPCS: 36415; 80053; 82306; 83735; 84443; 85025; 85651; 86140

== ENCOUNTER → 2021-06-29 06:50 | Outpatient (CLI) | payer MEDICARE, OTHER, SELFPAY ==
[2020-12-03 10:00] VITALS: BMI 21.8
[2021-06-29 09:43] LABS: Cholesterol 130 mg/dL (140-199); HDL Cholesterol 48 mg/dL (40-60); LDL Cholesterol Calculated 63 mg/dL (<100); Triglycerides 96 mg/dL (35-150)
== END ==
PROVIDERS: PCP Family Medicine; Referring Provider Family Medicine; Visit Provider Family Medicine
DX: Z13.220 Encounter for screening for lipoid disorders (principal)
CPT/HCPCS: 36415; 80061

== ENCOUNTER → 2022-04-07 07:50 | Outpatient (CLI) | payer MEDICARE, OTHER, SELFPAY ==
[2020-12-03 10:00] VITALS: BMI 21.8
--- NOTE | 2022-04-07 | DI.RAD.S_ITS ---
PROCEDURE: XR TIBIA FIBULA LT 2V, 04/07/2022, 8:42 XR ANKLE LT MIN 3V, 04/07/2022, 8:42 XR FEMUR LT MIN 2V, 04/07/2022, 8:42 INDICATIONS: Leg pain TECHNIQUE: 2 views of the tibia and fibula were acquired. COMPARISON: None. FINDINGS: Bones: No fractures or dislocations. No suspicious bony lesions. No significant degenerative changes. Soft tissues: No suspicious soft tissue calcifications or masses. IMPRESSION: Normal left femur, tibia fibula, and ankle. Dictated by: Fabio Cunningham M.D. on 04/07/2022 at 9:15 Approved by: Fabio Cunningham M.D. on 04/07/2022 at 9:18
== END ==
PROVIDERS: PCP Family Medicine; Referring Provider Family Medicine; Visit Provider Family Medicine
DX: M79.605 Pain in left leg (principal); M25.572 Pain in left ankle and joints of left foot; M79.652 Pain in left thigh; G89.29 Other chronic pain
CPT/HCPCS: 73552; 73590; 73610

== ENCOUNTER → 2022-06-29 07:13 | Outpatient (CLI) | payer MEDICARE, OTHER, SELFPAY ==
[2020-12-03 10:00] VITALS: BMI 21.8
[2022-06-29 09:18] LABS: Add Manual Diff / Slide Review NO; Basophils Absolute Auto 0 /uL (0-100); Basophils Percent Auto 0.5 % (0-2); Eosinophils Absolute Auto 100 /uL (0-450); Eosinophils Percent Auto 2.6 % (2-4); Hematocrit 40.8 % (41-53); Hemoglobin 13.4 g/dL (13.5-17.5); Lymphocytes Absolute Auto 1300 /uL (1100-4500); Lymphocytes Percent Auto 22.9 % (25-40); Mean Corpuscular HGB Conc 32.9 % (30-36); Mean Corpuscular Volume 88.2 fL (80-100); Monocytes Absolute Auto 400 /uL (0-900); Monocytes Percent Auto 7.1 % (3-14); Neutrophils Absolute Auto 3700 /uL (1500-7000); Neutrophils Percent Auto 66.9 % (50-75); Platelet Count 171 X10^3/uL (150-400); Red Blood Cell Count 4.62 X10^6/uL (4.5-5.9); Red Cell Distribution Width 16.2 % (11.6-14.8); White Blood Cell Count 5.5 X10^3/uL (4.5-11.0)
[2022-06-29 09:52] LABS: Alanine Aminotransferase 14 IU/L (<50); Albumin 3.8 g/dL (3.5-5.0); Albumin Globulin Ratio 1.8 (1.0-2.8); Alkaline Phosphatase 81 U/L (38-126); Aspartate Aminotransferase 28 IU/L (17-59); BUN Creatinine Ratio 25.3 (6-22); Bilirubin Total 0.4 mg/dL (0.2-1.3); Blood Urea Nitrogen 23 mg/dL (9-20); Calcium 8.8 mg/dL (8.4-10.2); Carbon Dioxide 29 mmol/L (22-32); Chloride 102 mmol/L (98-107); Estimated Glomerular Filt Rate > 60 mL/min (>60); Globulin 2.1 g/dL (1.7-4.1); Glucose 99 mg/dL (80-110); HEMOLYSIS < 15 (0-50); Potassium 4.5 mmol/L (3.4-5.1); Sodium 140 mmol/L (137-145); Total Protein 5.9 g/dL (6.3-8.2)
[2022-07-01 09:56] LABS: Cancer (Carbohydrate) Ag 19-9 6 U/mL (0-35)
== END ==
PROVIDERS: PCP Family Medicine; Referring Provider Internal Medicine; Visit Provider Internal Medicine
DX: C25.9 Malignant neoplasm of pancreas, unspecified (principal)
CPT/HCPCS: 36415; 80053; 85025; 86301

== ENCOUNTER → 2023-01-01 07:05 | Outpatient (CLI) | payer MEDICARE, OTHER, SELFPAY ==
[2020-12-03 10:00] VITALS: BMI 21.8
[2023-01-01 08:19] LABS: Add Manual Diff / Slide Review NO; Basophils Absolute Auto 0 /uL (0-100); Basophils Percent Auto 0.5 % (0-2); Eosinophils Absolute Auto 200 /uL (0-450); Hematocrit 40.7 % (41-53); Hemoglobin 13.6 g/dL (13.5-17.5); Lymphocytes Absolute Auto 1200 /uL (1100-4500); Mean Corpuscular HGB Conc 33.4 % (30-36); Mean Corpuscular Hemoglobin 29.6 PG (26-34); Mean Corpuscular Volume 88.7 fL (80-100); Monocytes Absolute Auto 500 /uL (0-900); Monocytes Percent Auto 9.2 % (3-14); Neutrophils Absolute Auto 3800 /uL (1500-7000); Neutrophils Percent Auto 66.3 % (50-75); Platelet Count 154 X10^3/uL (150-400); Red Blood Cell Count 4.58 X10^6/uL (4.5-5.9); White Blood Cell Count 5.8 X10^3/uL (4.5-11.0)
[2023-01-01 09:08] LABS: Alanine Aminotransferase 19 IU/L (<50); Albumin 3.8 g/dL (3.5-5.0); Albumin Globulin Ratio 1.7 (1.0-2.8); Alkaline Phosphatase 85 U/L (38-126); Aspartate Aminotransferase 28 IU/L (17-59); BUN Creatinine Ratio 19.1 (6-22); Bilirubin Total 0.3 mg/dL (0.2-1.3); Blood Urea Nitrogen 18 mg/dL (9-20); Calcium 9.3 mg/dL (8.4-10.2); Carbon Dioxide 32 mmol/L (22-32); Chloride 103 mmol/L (98-107); Estimated Glomerular Filt Rate > 60 mL/min (>60); Globulin 2.3 g/dL (1.7-4.1); Glucose 86 mg/dL (80-110); HEMOLYSIS < 15 (0-50); Potassium 4.7 mmol/L (3.4-5.1); Sodium 139 mmol/L (137-145); Total Protein 6.1 g/dL (6.3-8.2)
== END ==
PROVIDERS: PCP Family Medicine; Referring Provider Internal Medicine; Visit Provider Internal Medicine
DX: C25.9 Malignant neoplasm of pancreas, unspecified (principal)
CPT/HCPCS: 36415; 80053; 85025

== ENCOUNTER → 2023-06-04 14:06 | Outpatient (CLI) | payer MEDICARE, OTHER, SELFPAY ==
[2020-12-03 10:00] VITALS: BMI 21.8
[2023-06-04 15:14] LABS: Alanine Aminotransferase 9 IU/L (<50); Albumin Globulin Ratio 1.8 (1.0-2.8); Alkaline Phosphatase 68 U/L (38-126); Aspartate Aminotransferase 28 IU/L (17-59); Bilirubin Total 0.4 mg/dL (0.2-1.3); Bilirubin Unconjugated 0.2 mg/dL (0.0-1.1); Globulin 2.2 g/dL (1.7-4.1); HEMOLYSIS < 15 (0-50); Total Protein 6.2 g/dL (6.3-8.2)
== END ==
PROVIDERS: PCP Family Medicine; Referring Provider Internal Medicine Gastroenterology; Visit Provider Internal Medicine Gastroenterology
DX: R10.9 Unspecified abdominal pain (principal)
CPT/HCPCS: 36415; 80076

== ENCOUNTER → 2023-08-04 08:03 | Outpatient (CLI) | payer MEDICARE, OTHER, SELFPAY ==
[2020-12-03 10:00] VITALS: BMI 21.8
[2023-08-04 09:38] LABS: Add Manual Diff / Slide Review NO; Basophils Absolute Auto 0 /uL (0-100); Basophils Percent Auto 0.5 % (0-2); Eosinophils Absolute Auto 100 /uL (0-450); Hematocrit 41.3 % (41-53); Hemoglobin 14.1 g/dL (13.5-17.5); Lymphocytes Absolute Auto 1100 /uL (1100-4500); Lymphocytes Percent Auto 14.2 % (25-40); Mean Corpuscular HGB Conc 34.1 % (30-36); Mean Corpuscular Hemoglobin 30.4 PG (26-34); Mean Corpuscular Volume 88.9 fL (80-100); Monocytes Absolute Auto 400 /uL (0-900); Monocytes Percent Auto 5.5 % (3-14); Neutrophils Absolute Auto 5800 /uL (1500-7000); Neutrophils Percent Auto 77.8 % (50-75); Platelet Count 216 X10^3/uL (150-400); Red Blood Cell Count 4.64 X10^6/uL (4.5-5.9); White Blood Cell Count 7.5 X10^3/uL (4.5-11.0)
[2023-08-04 10:08] LABS: Alanine Aminotransferase 16 IU/L (<50); Albumin Globulin Ratio 1.5 (1.0-2.8); Alkaline Phosphatase 95 U/L (38-126); Aspartate Aminotransferase 28 IU/L (17-59); Bilirubin Total 0.5 mg/dL (0.2-1.3); Bilirubin Unconjugated 0.2 mg/dL (0.0-1.1); Cholesterol 106 mg/dL (140-199); Globulin 2.6 g/dL (1.7-4.1); HDL Cholesterol 44 mg/dL (40-60); HEMOLYSIS < 15 (0-50); LDL Cholesterol Calculated 47 mg/dL (<100); Total Protein 6.6 g/dL (6.3-8.2); Triglycerides 73 mg/dL (35-150)
== END ==
PROVIDERS: PCP Family Medicine; Referring Provider Dermatology; Visit Provider Dermatology
DX: L71.8 Other rosacea (principal)
CPT/HCPCS: 36415; 80061; 80076; 85025

== ENCOUNTER → 2024-03-20 08:20 | Outpatient (CLI) | payer MEDICARE, OTHER, SELFPAY ==
[2020-12-03 10:00] VITALS: BMI 21.8
[2024-03-20 09:10] LABS: Add Manual Diff / Slide Review NO; Basophils Absolute Auto 0 /uL (0-100); Basophils Percent Auto 0.5 % (0-2); Eosinophils Absolute Auto 200 /uL (0-450); Eosinophils Percent Auto 2.6 % (2-4); Hematocrit 43.2 % (41-53); Hemoglobin 14.4 g/dL (13.5-17.5); Lymphocytes Absolute Auto 1200 /uL (1100-4500); Lymphocytes Percent Auto 19.2 % (25-40); Mean Corpuscular HGB Conc 33.3 % (30-36); Mean Corpuscular Volume 89.8 fL (80-100); Monocytes Absolute Auto 500 /uL (0-900); Monocytes Percent Auto 8.2 % (3-14); Neutrophils Absolute Auto 4400 /uL (1500-7000); Neutrophils Percent Auto 69.5 % (50-75); Platelet Count 189 X10^3/uL (150-400); Red Blood Cell Count 4.81 X10^6/uL (4.5-5.9); Red Cell Distribution Width 15.8 % (11.6-14.8); White Blood Cell Count 6.3 X10^3/uL (4.5-11.0)
[2024-03-20 09:44] LABS: Alanine Aminotransferase 7 IU/L (<50); Albumin 4.2 g/dL (3.5-5.0); Alkaline Phosphatase 74 U/L (38-126); Aspartate Aminotransferase 26 IU/L (17-59); BUN Creatinine Ratio 21.7 (6-22); Bilirubin Total 0.5 mg/dL (0.2-1.3); Blood Urea Nitrogen 20 mg/dL (9-20); Calcium 9.5 mg/dL (8.4-10.2); Carbon Dioxide 28 mmol/L (22-32); Chloride 104 mmol/L (98-107); Estimated Glomerular Filt Rate > 60 mL/min (>60); Globulin 2.1 g/dL (1.7-4.1); Glucose 99 mg/dL (80-110); HEMOLYSIS < 15 (0-50); Potassium 4.7 mmol/L (3.4-5.1); Sodium 139 mmol/L (137-145); Total Protein 6.3 g/dL (6.3-8.2)
[2024-03-21 07:11] LABS: Cancer (Carbohydrate) Ag 19-9 6 U/mL (0-35)
== END ==
PROVIDERS: PCP Family Medicine; Referring Provider Internal Medicine; Visit Provider Internal Medicine
DX: Z85.07 Personal history of malignant neoplasm of pancreas (principal)
CPT/HCPCS: 36415; 80053; 85025; 86301

== ENCOUNTER → 2024-05-09 09:29 | Outpatient (CLI) | payer MEDICARE, OTHER, SELFPAY ==
[2020-12-03 10:00] VITALS: BMI 21.8
--- NOTE | 2024-05-09 | DI.RAD.S_ITS ---
PROCEDURE: XR FOOT LT MIN 3V INDICATIONS: CHRONIC MID-FOOT PAIN, NO TRAUMA TECHNIQUE: 3 views of the foot were acquired. COMPARISON: CR, XR ANKLE LT MIN 3V, 04/07/2022, 8:42. FINDINGS: Bones: No fractures or dislocations. Mild degenerative changes. No suspicious bony lesions. Soft tissues: No tibiotalar joint effusion. Achilles tendon appears normal. IMPRESSION: Mild degenerative changes. MRI may be helpful for further evaluation. Dictated by: Jasmeet Pineda M.D. on 05/09/2024 at 14:51 Approved by: Jasmeet Pineda M.D. on 05/09/2024 at 14:55
== END ==
PROVIDERS: PCP Family Medicine; Referring Provider Family Medicine; Visit Provider Family Medicine
DX: M79.672 Pain in left foot (principal)
CPT/HCPCS: 73630

== ENCOUNTER → 2024-10-15 10:49 | Outpatient (CLI) | payer MEDICARE, OTHER, SELFPAY ==
[2020-12-03 10:00] VITALS: BMI 21.8
--- NOTE | 2024-10-15 10:57 | DI.RAD.S_ITS ---
PROCEDURE: XR KNEE LT 3V INDICATIONS: LEFT KNEE PAIN TECHNIQUE: 3 views of the knee were acquired. COMPARISON: None. FINDINGS: Bones: No fractures or dislocations. No suspicious bony lesions. Soft tissues: No joint effusion. No suspicious soft tissue calcifications. IMPRESSION: No acute osseous abnormalities. No significant degenerative changes. Dictated by: Michael Treviño M.D. on 10/15/2024 at 11:43 Approved by: Michael Treviño M.D. on 10/15/2024 at 11:43
== END ==
PROVIDERS: PCP Family Medicine; Referring Provider Family Medicine; Visit Provider Family Medicine
DX: M25.562 Pain in left knee (principal); G89.29 Other chronic pain
CPT/HCPCS: 73562

== ENCOUNTER 2025-01-19 10:19 | Day surgery (SDC) | payer MEDICARE, OTHER, SELFPAY ==
[2020-12-03 10:00] VITALS: BMI 21.8
[2025-01-19 11:19] VITALS: BP 115/73; PULSE 80; RESP 18; TEMP 36.4; O2SAT 99
--- NOTE | 2025-01-19 11:20 | P.HP_ITS ---
History of Present Illness History of Present Illness Date Patient Seen: 01/19/25 Chief complaint: Screening Colonoscopy Narrative: History of colon polyps [facility] Medical History (Updated 01/19/25 @ 11:18 by Patt Reis RN) Family history of bladder cancer Nocturia Skin cancer Asthma Pancreatic insufficiency Urinary retention Whipple disease BPH (benign prostatic hyperplasia) Back pain Tremor Tourette's syndrome Fatigue Pancreatic cancer Epigastric pain History of Lyme disease (07/08/15) Idiopathic pancreatitis Surgical History (Updated 12/31/20 @ 15:23 by Chris Ortega MD) History of Whipple procedure H/O Whipple procedure H/O vasectomy History of partial pancreatectomy S/P ERCP Family History Sister Tourmiguel ángel's Mother Breast cancer Bladder cancer Father Immunoblastic lymphoma Social History marital status: unmarried,single household members: none lives independently: Yes occupational status: disabled Smoking Status: Never smoker alcohol intake: never Type(s) of exercise: walking Meds Home Medications and Allergies Home Medications ?Medication ?Instructions ?Recorded ?Confirmed ?Type dapsone 5 % topical gel 1 applictn topical BID #60 g su 09/18/17 01/19/25 Rx clonazepam 1 mg tablet 2 mg PO BEDTIME 01/01/1801/05 History ascorbic acid (vitamin C) 500 mg 500 mg PO DAILY 02/0101/19/25 History tablet (Vitamin C) cholecalciferol (vitamin D3) 50 4,000 - 6,000 unit PO DAILY 02/01/18 01/19/25 History mcg (2,000 unit) capsule (Vitamin D3) coenzyme Q10 100 mg capsule 300 mg PO DAILY 02/01/18 0 01/19/25 History (CoQ-10) melatonin 10 mg tablet 10 mg PO BEDTIME 02/01/18 History tamsulosin 0.4 mg capsule (Flomax) 0.8 mg PO BEDTIME 0 02/01/18 01/19/25 History Ocuvite 1 cap PO DAILY 10/03/1801/05 History finasteride 5 mg tablet 5 mg PO DAILY 10/03/1801/19 History lamotrigine 150 mg tablet 300 mg PO DAILY 10/03/1801/05 History carbidopa ER 50 mg-levodopa 200 mg 1 tab PO QID #120 t abs 10/17/18 01/19/25 Rx tablet,extended release fluoxetine 20 mg capsule 40 mg PO BID 12/31/20 History fluticasone propionate 50 2 spray intranasal DAILY 01/19/25 History mcg/actuation nasal spray,suspension (Flonase Allergy Relief) polyethylene glycol 3350 17 gram 17 g PO BID 12/31/20 01/19/25 History oral powder packet (Miralax) quetiapine 100 mg tablet 200 mg PO BEDTIME 12/31/20 0 01/19/25 History vitamin K2 100 mcg capsule 100 mcg PO DAILY 12/31/20 0 01/19/25 History minocycline 50 mg capsule 100 mg PO DAILY 05/24/2103/05 History gabapentin 600 mg tablet 600 mg PO TID 02/14/2201/19 History doxycycline hyclate 100 mg capsule 100 mg PO BID 01/1901/19/25 History Allergies Allergy/AdvReac Type Severity Reaction Status Date / Time promethazine (From PHENERGAN) AdvReac Severe tardive Verified 01/19/25 10:59 dyskinesia like effeect Assessment & Plan Assessment & Plan narrative: History of polyps need for follow-up colonoscopy. Risks, benefits, alternatives have been explained Time-Based Coding :: [TOTAL MINUTES] spent with patient and on the chart (including review of chart, obtaining history, exam, reviewing outside data, placing orders, documenting exam and treatment plan, and counseling patient) on [DATE]. [employer] Document charge(s): No
--- NOTE | 2025-01-19 11:20 | PM.HP.IH.1 ---
History of Present Illness History of Present Illness Date Patient Seen: 01/19/25 Chief complaint: Screening Colonoscopy Narrative: History of colon polyps [facility] Medical History (Updated 01/19/25 @ 11:18 by Patt Reis RN) Family history of bladder cancer Nocturia Skin cancer Asthma Pancreatic insufficiency Urinary retention Whipple disease BPH (benign prostatic hyperplasia) Back pain Tremor Tourette's syndrome Fatigue Pancreatic cancer Epigastric pain History of Lyme disease (07/08/15) Idiopathic pancreatitis Surgical History (Updated 12/31/20 @ 15:23 by Chris Ortega MD) History of Whipple procedure H/O Whipple procedure H/O vasectomy History of partial pancreatectomy S/P ERCP Family History Sister Tourette's Mother Breast cancer Bladder cancer Father Immunoblastic lymphoma Social History marital status: unmarried,single household members: none lives independently: Yes occupational status: disabled Smoking Status: Never smoker alcohol intake: never Type(s) of exercise: walking Meds Home Medications and Allergies Home Medications ?Medication ?Instructions ?Recorded ?Confirmed ?Type dapsone 5 % topical gel 1 applictn topical BID #60 grams 09/18/17 01/19/25 Rx clonazepam 1 mg tablet 2 mg PO BEDTIME 01/01/18 01/19/25 History ascorbic acid (vitamin C) 500 mg 500 mg PO DAILY 02/01/18 01/19/25 History tablet (Vitamin C) cholecalciferol (vitamin D3) 50 4,000 - 6,000 unit PO DAILY 02/01/18 01/19/25 History mcg (2,000 unit) capsule (Vitamin D3) coenzyme Q10 100 mg capsule 300 mg PO DAILY 02/01/18 01/19/25 History (CoQ-10) melatonin 10 mg tablet 10 mg PO BEDTIME 02/01/18 01/19/25 History tamsulosin 0.4 mg capsule (Flomax) 0.8 mg PO BEDTIME 02/01/18 01/19/25 History Ocuvite 1 cap PO DAILY 10/03/18 01/19/25 History finasteride 5 mg tablet 5 mg PO DAILY 10/03/18 01/19/25 History lamotrigine 150 mg tablet 300 mg PO DAILY 10/03/18 01/19/25 History carbidopa ER 50 mg-levodopa 200 mg 1 tab PO QID #120 tabs 10/17/18 01/19/25 Rx tablet,extended release fluoxetine 20 mg capsule 40 mg PO BID 12/31/20 01/19/25 History fluticasone propionate 50 2 spray intranasal DAILY 12/31/20 01/19/25 History mcg/actuation nasal spray,suspension (Flonase Allergy Relief) polyethylene glycol 3350 17 gram 17 g PO BID 12/31/20 01/19/25 History oral powder packet (Miralax) quetiapine 100 mg tablet 200 mg PO BEDTIME 12/31/20 01/19/25 History vitamin K2 100 mcg capsule 100 mcg PO DAILY 12/31/20 01/19/25 History minocycline 50 mg capsule 100 mg PO DAILY 05/24/21 12/21/22 History gabapentin 600 mg tablet 600 mg PO TID 02/14/22 01/19/25 History doxycycline hyclate 100 mg capsule 100 mg PO BID 01/19/25 01/19/25 History Allergies Allergy/AdvReac Type Severity Reaction Status Date / Time promethazine (From PHENERGAN) AdvReac Severe tardive Verified 01/19/25 10:59 dyskinesia like effeect Assessment & Plan Assessment & Plan narrative: History of polyps need for follow-up colonoscopy. Risks, benefits, alternatives have been explained Time-Based Coding :: [TOTAL MINUTES] spent with patient and on the chart (including review of chart, obtaining history, exam, reviewing outside data, placing orders, documenting exam and treatment plan, and counseling patient) on [DATE]. [employer] Disaster Recovery Coordinator Document charge(s): No
--- NOTE | 2025-01-19 11:21 | PM.OP.COLON ---
Operative Date/Time/Diagnoses Date of procedure: 01/19/25 Time of procedure: 12:11 Pre-op diagnosis: See indication and findings Post-op diagnosis: same Procedure & Clinicians Study performed: Colonoscopy due for Same procedure(s) as scheduled: Yes Indications: History of polyps Surgeon: Redd Hood Anesthesia Type: Other Procedure Notes Procedure in detail: After informed consent was obtained the patient was placed in left lateral decubitus position. The video colonoscope was introduced the rectum slowly advanced cecum. Preparation was good. On slow withdrawal mucosa was carefully examined. The scope was removed. The patient tolerated procedure well. Blood loss none Complications none Sedation mac Findings 1. Normal colonoscopy to cecum Patient should have follow-up colonoscopy in 5 years
[2025-01-19] MEDS: LACTATED RINGERS 1,000 ML 42 ML IV (11:24)
[2025-01-19 12:15] VITALS: BP 105/68; PULSE 75; PULSE 85; RESP 16; TEMP 36.2; O2SAT 100; O2SAT 98
[2025-01-19 12:20] VITALS: BP 105/68; PULSE 78; RESP 16; TEMP 36.2; O2SAT 100
[2025-01-19 13:00] VITALS: BP 118/77; PULSE 81; RESP 16; TEMP 36.1; O2SAT 98
== END 2025-01-19 13:13 | disposition home or self-care (01) ==
PROVIDERS: PCP Family Medicine; Referring Provider Internal Medicine Gastroenterology; Visit Provider Internal Medicine Gastroenterology
PROC: 0DJD8ZZ Inspection of Lower Intestinal Tract, Via Natural or Artificial Opening Endoscopic (ICD-10-PCS; CPT 45378; principal; 2025-01-19 11:30)
DX: Z12.11 Encounter for screening for malignant neoplasm of colon (principal); Z86.0100 Personal history of colon polyps, unspecified
CPT/HCPCS: G0105; J2704